=== PATIENT | female | born 1950 | race Caucasian/White ===

== ENCOUNTER 2016-09-21 09:38 | Emergency (ER) | payer BC ==
[2010-12-24 07:50] VITALS: BMI 27.5
[2016-09-21 10:51] LABS: BASOPHILS 0.1 % (0-2); EOSINOPHILS 0.2 % (0-7); HEMATOCRIT 41.1 % (36.0-48.0); HEMOGLOBIN 13.5 g/dL (12-16); IMMATURE GRANULOCYTES 0.7 % (0-5); LYMPHOCYTES 19.6 % (15-50); MCH 30.8 pg (26.0-34.0); MCHC 32.8 g/dL (31.0-37.0); MCV 93.6 fL (80.0-100.0); MEAN PLATELET VOLUME 10.2 fL (7.4-10.4); MONOCYTES 9.2 % (2-11); NEUTROPHILS 70.2 % (40-80); RBC 4.39 10x6/uL (4.00-5.40); RDW 12.1 % (11.5-14.5); WBC 9.4 10x3/uL (4.8-10.8)
[2016-09-21 10:52] LABS: PLATELET COUNT 206 10x3/uL (130-400)
[2016-09-21 11:13] LABS: ALBUMIN 3.4 g/dL (3.4-5.0); ALKALINE PHOSPHATASE 137 U/L (46-116); ALT (SGPT) 25 U/L (10-68); BILIRUBIN - TOTAL 0.25 mg/dL (0.2-1.3); CALCIUM 9.1 mg/dL (8.5-10.1); CARBON DIOXIDE 32.5 mmol/L (21.0-32.0); CHLORIDE - SERUM 95 mmol/L (98-107); CREATININE - SERUM 0.9 mg/dL (0.6-1.3); PROTEIN - SERUM 7.4 g/dL (6.4-8.2); SODIUM 133 mmol/L (136-145); UREA NITROGEN 17 mg/dL (7-18); eGFR NON AFRICAN AMERICAN 67 mL/min (90-120)
[2016-09-21 11:17] LABS: CREATINE KINASE 88 UL (21-215); MAGNESIUM - SERUM 1.9 mg/dL (1.8-2.4)
[2016-09-21 11:18] LABS: CALC OSMOLALITY 267 mosm/kg (275-300); GLUCOSE 106 mg/dL (74-106); TROPONIN-I < 0.017 ng/mL (0.000-0.060)
== END 2016-09-21 13:54 | disposition home or self-care (01) ==
LOC: D.ER 09:38
PROVIDERS: Emergency Medicine
DX: R55 Syncope and collapse (principal); R11.10 Vomiting, unspecified; J01.90 Acute sinusitis, unspecified; I10 Essential (primary) hypertension

== ENCOUNTER → 2016-09-25 07:57 | Outpatient (CLI) | payer BC ==
[2010-12-24 07:50] VITALS: BMI 27.5
== END | disposition home or self-care (01) ==
LOC: D.US 07:57
DX: R11.2 Nausea with vomiting, unspecified (principal)

== ENCOUNTER 2017-04-25 21:42 | Observation (INO) | payer BC ==
[~2017-04-25] VITALS: Ht 167.6 cm; Wt 68.2 kg
--- NOTE | ~2017-04-25 | HEMODYNAMI ---
PATIENT:MEHUL STRINGER MEDICAL RECORD: [id number] : 54 LOCATION[id number] ADMISSION DATE: 04/25/17 Generatedon:04/26/201710:33 Patient name: MEHUL STRINGER Patient #: [id number] SSN: [id number] : 1950 Date of study: 04/26/2017 Page: Of Hemodynamic Procedure Report Patient Data Patient Demographics Procedure consent was obtained First Name: MEHUL Gender: Female Last Name: SIOMARA : 1950 [facility] Initial: C Age: 67 year(s) Patient #: [id number] Race: SSN: [id number] Additional ID: [id number] Contact details Address: [address] [place] [address] State: [place] City: [facility] Zip code: [address] Past Medical History Allergies Allergen Reaction Date Comments Reported Other allergy 04/26/2017 codeine Admission Admission Data Admission Date: 04/25/2017 Admission Time: 23:44 Arrival Date: 04/26/2017 Arrival Time: 23:44 Admit Source: Other Insurance Payor: Private Room #: [id number] health insurance Height (in.): 69 Height (cm.): 175.26 Lab Results Lab Result Date: 04/26/2017 Lab Result Time: 0:00 Biochemistry Name Units Result Min Max BUN mg/dl 10 --(-*--)-- 7 18 Creatinine mg/dl 0.7 --(*---)-- 0.6 1.3 CBC Name Units Result Min Max Hemoglobin g/dl 12.9 -*(----)-- 13.5 17.5 Procedure Procedure Types Cath Procedure Diagnostic Procedure [facility] w/Coronaries FFR/IVUS Intra-Coronary IVUS Initial PCI Procedure Coronary Stent Miscellaneous Procedures Moderate Sedation up to 15 minutes Procedure Description Procedure Date Procedure Date: 04/26/2017 Procedure Start Time: 10:05 Procedure End Time: 10:29 Procedure Staff Name Function Arben You MD Performing Physician Chin Knight RN Nurse Nita Khan RT Monitor Lindsay Thomason RT Scrub Procedure Data Cath Procedure Fluoroscopy Diagnostic fluoroscopy Total fluoroscopy Time: 6.7 time: 6.7 min min Diagnostic fluoroscopy Total fluoroscopy dose: 690 dose: 690 mGy mGy Contrast Material Contrast Material Type Amount (ml) Isovue 300 116 Entry Location Entry Primary Successful Side Size Upsize Upsize Entry Closure Nam ccessful Closure Location (Fr) 1 (Fr) 2 (Fr) Remarks Device Remarks Radial Right 6 Fr Mechanical TR band artery Short Compression Estimated blood loss: 10 ml Diagnostic catheters Device Type Used For End Catheter Placement Diagnostic Terumo 5Fr Procedure [place] 110cm catheter Procedure Complications No complications Procedure Medications Medication Administration Route Dosage Oxygen NC 2 l/min Heparin Flush Bag added to field 2 bags (1000units/500ml NS) 0.9% NaCl I.V. 100 ml/hr Radial Cocktail added to field 1 syringe (Verapomil 2mg/Nitro 400mcg/Heparin 1500units) Fentanyl I.V. 50 mcg Versed I.V. 1 mg Fentanyl I.V. 50 mcg Versed I.V. 1 mg Radial Cocktail I.A. 1 syringe (Verapomil 2mg/Nitro 400mcg/Heparin 1500units) Fentanyl I.V. 50 mcg Versed I.V. 1 mg Lopressor I.V. 5 mg Heparin Bolus I.V. 4000 units Zofran I.V. 4 mg Fentanyl I.V. 50 mcg Versed I.V. 1 mg Hemodynamics Rest HGB: 12.9 (g/dl) Heart Rate: 35 (bpm) Snapshots Pre Cath Intra NCS Post Cath Vital Signs Time Heart Resp SPO2 etCO2 NIBP (mmHg) Rhythm Pain Sedation Rate (ipm) (%) (mmHg) Status Level (bpm) 9:53:02 83 18 98 0 202/110(161) NSR 0 (11) 10(A) , No pain 9:58:21 84 20 95 30.9 205/107(176) NSR 0 (11) 10(A) , No pain 10:02:45 82 18 98 15 195/96(147) NSR 0 (11) 10(A) , No pain 10:07:11 81 17 95 33.1 175/88(145) NSR 0 (11) 10(A) , No pain 10:11:32 106 19 88 37.7 177/111(158) NSR 0 (11) 10(A) , No pain 10:15:52 85 18 95 43.7 195/99(141) NSR 0 (11) 10(A) , No pain 10:20:14 82 19 97 42.9 176/107(142) NSR 0 (11) 9(A) , No pain 10:24:36 84 17 98 42.2 179/99(128) NSR 0 (11) 9(A) , No pain 10:28:56 85 17 99 25.6 166/89(121) NSR 0 (11) 10(A) , No pain 10:32:03 80 18 100 39.2 162/81(125) NSR 0 (11) 10(A) , No pain Medications Time Medication Route Dose Verified Delivered Reason Note s Effectiveness by by 9:55:05 Oxygen NC 2 l/min Arben Neely Per physician Avelino Knight RN 9:55:14 Heparin Flush added 2 bags Arben Neely used for Bag to Avelino Knight RN procedure (1000units/500ml field NS) 9:55:23 0.9% NaCl I.V. 100 Arbenkrala Neely Per physician ml/hr Avelino Knight RN 9:55:31 Radial Cocktail added 1 Arben Neely used for (Verapomil to syringe Avelino Knight RN procedure 2mg/Nitro field 400mcg/Heparin 1500units) 9:58:12 Fentanyl I.V. 50 mcg Arben Neely for sedation Avelino Knight RN 9:58:18 Versed I.V. 1 mg Arben Chin for sedation Avelino Knight RN 10:01:57 Fentanyl I.V. 50 mcg Arbenkarla Martinezy for sedation Avelino Knight RN 10:02:01 Versed I.V. 1 mg Arben Chin for sedation Avelino Knight RN 10:05:58 Fentanyl I.V. 50 mcg Arben Chin for sedation Avelino Knight RN 10:06:02 Versed I.V. 1 mg Arben Martinezy for sedation Avelino Knight RN 10:10:12 Radial Cocktail I.A. 1 Arben Arben for (Verapomil syringe Avelino You MD vasodilation 2mg/Nitro 400mcg/Heparin 1500units) 10:10:18 Fentanyl I.V. 50 mcg Arben Neely for sedation Avelino Knight RN 10:10:22 Versed I.V. 1 mg Arben Neely for sedation Avelino Knight RN 10:11:58 Lopressor I.V. 5 mg Arben Neely Per physician Avelino Knight RN 10:15:31 Heparin Bolus I.V. 4000 Arben Neely for units Avelino Knight RN anticoagulation 10:29:15 Zofran I.V. 4 mg Arben Neely for Nausea Avelino Knight carpenter packing Log Time Note 9:38:37 Informed consent obtained and on chart 9:38:45 Diagnostic Cath Status : Elective 9:39:21 Nita Khan RT(R) sent for patient. Start room use. 9:39:35 Time tracking: Regular hours 9:39:41 Plan of Care:Hemodynamics will remain stable., Cardiac rhythm will remain stable., Comfort level will be maintained., Respiratory function will remain adequate., Patient/ family verbilizes understanding of procedure., Procedure tolerated without complication., Recovers from procedure without complications.. 9:41:31 Admit Source: Other 9:41:35 Arrival Date: 04/26/2017 11:44:00 PM 9:42:12 Insurance Payor : Private health insurance 9:45:55 Patient received from PCU to CCL 2 Alert and oriented. Tansferred to table in Supine position. 9:45:56 Warm blankets applied, and phong hugger turned on for patient comfort. 9:45:56 Correct patient and procedure confirmed by team. 9:45:57 ECG and BP/O2 sat monitors applied to patient. 9:50:51 Vital chart was started 9:50:55 Baseline sample Acquired. 9:50:57 Full Disclosure recording started 9:51:01 H&P Date Dictated: 04/26/2017 New H&P dictated by physician.. 9:51:05 Pre-procedure instructions explained to patient. 9:51:05 Pre-op teaching completed and patient verbalized understanding. 9:51:07 Family in waiting room. 9:51:09 Patient NPO since Midnight. 9:51:18 Patient allergic to Other allergycodeine 9:51:20 Is the patient allergic to Iodine/contrast media? No. 9:51:21 Was the patient premedicated? No 9:51:22 Is patient on blood thinner?Yes 9:51:25 ACC The patient was administered the following blood thiners within the last 24 hours: ACCPlavix 9:51:28 Patient diabetic? No. 9:51:32 Previous problem with sedation/anesthesia? No ? 9:51:33 Snore? Yes 9:51:35 Sleep apnea? No 9:51:37 Deviated septum? No 9:51:37 Opens mouth fully? Yes 9:51:38 Sticks out tongue? Yes 9:51:40 Airway obstruction? No ? 9:51:42 Dentures? No ? 9:51:46 Pre procedure: right dorsailis pedis pulse 2+ Normal; easily identifiable; not easily obliterated 9:51:49 Pre procedure: left dorsailis pedis pulse 2+ Normal; easily identifiable; not easily obliterated 9:51:52 Modified Gavin's test Radial < 7 seconds 9:51:58 IV patent on arrival in left forearm with 0.9% NaCl at [facility]. 9:52:01 Lab results completed and on chart. 9:52:05 Right Radial & Right Groin area was prepped with chlora-prep and draped in sterile fashion 9:52:06 Alarms reviewed by R. N. 9:52:07 Sharps counted by scrub and verified by R.N. 9:55:05 Oxygen 2 l/min NC was administered by Chin Knight RN; Per physician; 9:55:14 Heparin Flush Bag (1000units/500ml NS) 2 bags added to field was administered by Chin Knight RN; used for procedure; 9:55:23 0.9% NaCl 100 ml/hr I.V. was administered by Chin Knight RN; Per physician; 9:55:31 Radial Cocktail (Verapomil 2mg/Nitro 400mcg/Heparin 1500units) 1 syringe added to field was administered by Chin Knight RN; used for procedure; 9:57:53 Physician arrived 9:57:54 --------ALL STOP TIME OUT------ 9:57:54 Final Timeout: patient, procedure, and site verified with staff and physician. All members of the team are in agreement. 9:57:59 Right Radial & Right Groin site verified by team. 9:58:03 Physical assessment completed. ASA score P 2 - A patient with mild systemic disease as per Arben You MD. 9:58:07 Sedation plan: IV Moderate Sedation Medication:Versed, Fentanyl 9:58:12 Fentanyl 50 mcg I.V. was administered by Chin Knight RN; for sedation; 9:58:18 Versed 1 mg I.V. was administered by Chin Knight RN; for sedation; 10:00:31 Use device set Radial Dx 10:00:32 Acist Syringe opened to sterile field. 10:00:32 Medline Cath Pack opened to sterile field. 10:00:33 Bag Decanter opened to sterile field. 10:00:33 Terumo 6Fr Slender Glidesheath opened to sterile field. 10:00:34 [place] 260cm J .035 wire opened to sterile field. 10:00:34 Acist Hand Control opened to sterile field. 10:00:35 Acist Manifold opened to sterile field. 10:00:35 Tegaderm 4 x 4 opened to sterile field. 10:00:36 MBrace Wrist Support opened to sterile field. 10:01:19 Patient Height : 69 inches 10::47 Lab Result : BUN 10 mg/dl 10::47 Lab Result : Hemoglobin 12.9 g/dl 10::47 Lab Result : Creatinine 0.7 mg/dl 10::57 Fentanyl 50 mcg I.V. was administered by Chin Knight RN; for sedation; 10:02:00 Procedure type changed to Cath procedure, Diagnostic procedure, LHC, LHC w/Coronaries, FFR/IVUS, Intra-Coronary IVUS Initial, PCI procedure, Coronary Stent, Miscellaneous Procedures, Moderate Sedation up to 15 minutes 10:02:01 Versed 1 mg I.V. was administered by Chin Knight RN; for sedation; 10:04:42 Zero performed for pressure channel P1 10:05:07 Procedure started. 10:05:54 Local anesthetic to right radial artery with Lidocaine 2% by Arben You MD.INITIAL ACCESS ONLY 10:05:58 Fentanyl 50 mcg I.V. was administered by Chin Knight RN; for sedation; 10:06:02 Versed 1 mg I.V. was administered by Chin Knight RN; for sedation; 10:07:12 A 6 Fr Short sheath was inserted into the Right Radial artery 10:07:36 A Diagnostic Terumo 5Fr [place] 110cm catheter was advanced over the wire and used for Procedure. 10:10:06 Terumo Super Stiff Angled 260cm glide wire opened to sterile field. 10:10:12 Radial Cocktail (Verapomil 2mg/Nitro 400mcg/Heparin 1500units) 1 syringe I.A. was administered by Arben You MD; for vasodilation; 10:10:18 Fentanyl 50 mcg I.V. was administered by Chin Knight RN; for sedation; 10:10:22 Versed 1 mg I.V. was administered by Chin Knight RN; for sedation; 10:10:26 Terumo TORQUE DEVICE PLASTIC .038 opened to sterile field. 10:10:36 LV angiography performed. 10:11:04 LV gram done using KRUGER 10:11:10 EF : 60 % 10:11:15 LCA angiography performed. 10:11:44 RCA angiography performed. 10:11:58 Lopressor 5 mg I.V. was administered by Chin Knight RN; Per physician; 10:12:52 Catheter removed. 10:14:35 Merit BasixCompak Inflation Kit opened to sterile field. 10:14:35 Cordis 6FR XBLAD 3.5 guide catheter opened to sterile field. 10:14:36 Theorem Choice PT Extra Support 182cm wire opened to sterile field. 10:14:36 [place] IVUS Catheter opened to sterile field. 10:14:40 Proceeding to intervention. 10:15:24 6 Fr x.b lad 3.5 guide catheter was inserted over the wire 10:15:31 Heparin Bolus 4000 units I.V. was administered by Chin Knight RN; for anticoagulation; 10:15:35 extra support wire advanced. 10:16:54 Guide Catheter removed. unable to cannulate vessel. 10:17:08 Medtronic Launcher 6Fr AR 1.0 guide catheter opened to sterile field. 10:17:16 6 Fr AR1 guide catheter was inserted over the wire 10:17:45 Guide Catheter removed. unable to cannulate vessel. 10:17:54 Medtronic Launcher 6Fr AR 1.0 SH guide catheter opened to sterile field. 10:18:24 6 Fr AR 1 SH guide catheter was inserted over the wire 10:19:34 extra support wire advanced. 10:19:36 Wire advanced across lesion. 10:22:33 IVUS catheter removed over wire. 10::59 Inflation Number: 1 A Macario RX 3.5 x 22 stent was prepped and advanced across the Prox RCA. The stent was deployed at 21 GUY for 0:10 (min:sec). 10:25:28 Stent catheter was removed intact over wire. 10:25:28 Wire removed. 10:25:29 Guide catheter removed. 10:26:13 Terumo TR Band Standard opened to sterile field. 10:26:37 Sheath removed intact; hemostasis achieved with Mechanical Compression to the Right Radial artery. 10:26:40 Procedure ended.(Physican Out) 10:26:49 Fluoroscopy time 06.70 minutes. 10::56 Fluoroscopy dose: 690 mGy 10::56 Flurop Dose total: 690 10:27:00 Contrast amount:Isovue 300 116ml. 10:27:02 Sharps counted by scrub and verified by R.N. 10:27:04 TR band inflated with 13cc of air. 10:27:06 Insertion/operative site no bleeding no hematoma. 10:27:11 Post Procedure Pulses reassessed and unchanged 10::25 Post-procedure physical assessment completed. ASA score P 2 - A patient with mild systemic disease as per Arben You MD. 10:27:31 Post procedure rhythm: unchanged. 10::34 Estimated blood loss: 10 ml 10:27:35 Post procedure instruction explained to patient.Patient verbalizes understanding. 10::58 Procedure and supply charges have been captured, reviewed, submitted and are correct. 10:28:55 Procedure Complication : No complications 10::58 Vital chart was stopped 10::59 See physician's report for complete and final results. 10:29:15 Zofran 4 mg I.V. was administered by Chin Knight RN; for Nausea; 10::19 Report given to [facility]. 10::23 Patient transfered to [facility] with Bed. 10::25 Procedure ended. :: Full Disclosure recording stopped 10:29:31 End room use (Document Last) Intervention Summary Intervention Notes Time ActionType Lesion and Equipment Action# Pressure Duration Attributes Used 10:22:[address] Place stent Prox RCA [place] RX 1 21 00:10 3.5 x 22 stent Device Usage Item Name Manufacture Quantity Catalog Number Hospital Part Current Mini mal Lot# / Charge Number Stock Stock Serial# Code Acist Acist 1 11035 200566 297125 453596 20 Syringe Medical Systems Inc Medline Cardinal 1 [id number] 181562 07171 211231 5 Cath Pack Health Bag Microtek 1 2002S 705906 27646 612286 5 Decanter Medical Inc. Terumo 6Fr Terumo 1 [id number] 905394 000251 090904 [address] Kel[place] 1 380198 734798 285869 159543 30 260cm J .035 wire Acist Hand Acist 1 89689 911914 785944 196034 5 Control Medical Systems Inc Acist Acist 1 44468 044963 359386 854891 5 Manifold Medical Systems Inc Tegaderm 4 3M 1 1626W 332377 996519 731131 5 x 4 MBrace Advanced 1 140-0250-00 585587 87271 210563 5 Wrist Vascular Support Dynamics Diagnostic Terumo 1 71-4001 425433 130268 880209 5 Terumo 5Fr [place] 110cm catheter Terumo Terumo 1 [id number] 978450 920126 658698 5 Super Stiff Angled 260cm glide wire Terumo [place] 1 TD01 746801 874997 205789 5 TORQUE Scientific DEVICE PLASTIC .038 Merit Merit 1 [id number] 003040 385325 271538 15 TapruwvBand Digital Medical Inflation Kit Cordis 6FR Cardinal 1 [id number] 778165 112422 660388 10 XBLAD 3.5 Health guide catheter [place] Sci [place] 1 [id number] 837929 638997 410589 5 Choice PT Scientific Extra Support 182cm wire [place] 1 [id number] 504641 297064 966116 8 [place] IVUS Catheter Medtronic Medtronic 1 [id number] 511083 93068 235798 1 Launcher 6Fr AR 1.0 guide catheter Medtronic Medtronic 1 [id number] 176674 65100 537426 1 Launcher 6Fr AR 1.0 SH guide catheter [place] RX 3.5 Medtronic 1 [id number] 298366 3933871 721665 5 [id number] x 22 stent Terumo TR Terumo 1 [id number] 052636 046295 548496 40 Band Standard Signature Audit [place] Stage Time Signature Unsigned Intra-Procedure 04/26/2017 Nita Khan 10:33:25 AM RT(R) Signatures Monitor : Nita Khan Signature : RT Date : Time : [place] [id number] [place] [address]
--- NOTE | ~2017-04-25 | HEMODYNAMI ---
PATIENT:MEHUL STRINGER MEDICAL RECORD: [id number] : 54 LOCATION[facility] [address] [id number] ADMISSION DATE: 04/25/17 Generatedon:04/27/20179:17 Patient name: MEHUL STRINGER Patient #: [id number] SSN: [id number] : 1950 Date of study: 04/27/2017 Page: Of Hemodynamic Procedure Report Patient Data Patient Demographics Procedure consent was obtained First Name: MEHUL Gender: Female Last Name: SIOMARA : 1950 [facility] Initial: C Age: 67 year(s) Patient #: [id number] Race: SSN: [id number] Additional ID: [id number] Contact details Address: [address] [place] [address] State: [place] City: [facility] Zip code: [address] Past Medical History Allergies Allergen Reaction Date Comments Reported Other allergy 04/26/2017 codeine Other allergy 04/27/2017 codeine Admission Admission Data Admission Date: 04/25/2017 Admission Time: 23:44 Arrival Date: 04/26/2017 Arrival Time: 23:44 Admit Source: Other Insurance Payor: Private Room #: [id number] health insurance Height (in.): 69 Height (cm.): 175.26 Lab Results Lab Result Date: 04/27/2017 Lab Result Time: 0:00 Biochemistry Name Units Result Min Max BUN mg/dl 10 --(-*--)-- 7 18 Creatinine mg/dl 0.7 --(*---)-- 0.6 1.3 CBC Name Units Result Min Max Hemoglobin g/dl 12.9 -*(----)-- 13.5 17.5 Procedure Procedure Types Cath Procedure Diagnostic Procedure FFR/IVUS Intra-Coronary IVUS Initial Intra-Coronary IVUS Additional PCI Procedure Coronary Stent Coronary Stent Initial x2 Miscellaneous Procedures Moderate Sedation up to 15 minutes Procedure Description Procedure Date Procedure Date: 04/27/2017 Procedure Start Time: 8:56 Procedure End Time: 9:14 Procedure Staff Name Function Arben You MD Performing Physician Nita Khan RT Monitor Lindsay Thomason RT Scrub Chin Knight RN Nurse Andrez Martinez RN Nurse Procedure Data Cath Procedure Fluoroscopy Diagnostic fluoroscopy Total fluoroscopy Time: 4.5 time: 4.5 min min Diagnostic fluoroscopy Total fluoroscopy dose: 495 dose: 495 mGy mGy Contrast Material Contrast Material Type Amount (ml) Isovue 300 97 Entry Location Entry Primary Successful Side Size Upsize Upsize Entry Closure Succes sful Closure Location (Fr) 1 (Fr) 2 (Fr) Remarks Device Remarks Femoral Right 6 Fr Exoseal artery Short Estimated blood loss: 10 ml Procedure Complications No complications Procedure Medications Medication Administration Route Dosage Phenergan 25 mg Zofran I.V. 4 mg Benadryl I.V. 50 mg Versed I.V. 1 mg Fentanyl I.V. 50 mcg Heparin Bolus I.V. 4000 units Versed I.V. 1 mg Fentanyl I.V. 50 mcg Lopressor I.V. 5 mg Oxygen NC 2 l/min Lidocaine 2% added to field 20 Heparin Flush Bag added to field 2 bags (1000units/500ml NS) 0.9% NaCl I.V. 100 ml/hr Hemodynamics Rest HGB: 12.9 (g/dl) Snapshots Pre Cath Intra NCS Post Cath Vital Signs Time Heart Resp SPO2 etCO2 NIBP (mmHg) Rhythm Pain Sedation Rate (ipm) (%) (mmHg) Status Level (bpm) 8:14:19 85 17 96 0 178/100(156) NSR 0 (11) 10(A) , No pain 8:18:43 83 16 98 0 182/99(167) NSR 0 (11) 10(A) , No pain 8:23:09 84 15 95 0 178/87(145) NSR 0 (11) 10(A) , No pain 8:27:34 82 14 97 0 187/91(138) NSR 0 (11) 10(A) , No pain 8:32:00 80 17 96 0 195/96(156) NSR 0 (11) 10(A) , No pain 8:36:26 81 16 97 0 199/98(139) NSR 0 (11) 10(A) , No pain 8:40:57 86 16 97 0 185/104(138) NSR 0 (11) 10(A) , No pain 8:45:23 84 16 99 0 200/100(159) NSR 0 (11) 10(A) , No pain 8:49:53 78 15 98 0 203/93(152) NSR 0 (11) 10(A) , No pain 8:54:26 94 15 100 0 208/107(152) NSR 0 (11) 10(A) , No pain 8:58:48 91 16 97 0 183/88(135) NSR 0 (11) 10(A) , No pain 9:03:08 107 16 99 0 167/94(127) NSR 0 (11) 10(A) , No pain 9:07:28 114 14 100 0 178/105(135) NSR 0 (11) 10(A) , No pain 9:11:52 89 15 100 0 195/102(151) NSR 0 (11) 10(A) , No pain Medications Time Medication Route Dose Verified Delivered Reason Notes Effectiveness by by 8:40:23 Oxygen NC 2 Arben Buffie used for l/min Avelino Martinez RN procedure 8:40:30 Lidocaine 2% added 20ml Arben Buffie for local to vial Avelino Martinez RN anesthetic field 8:40:37 Heparin Flush added 2 Arben Arben used for Bag to bags Avelino You MD procedure (1000units/500ml field NS) 8:40:47 0.9% NaCl I.V. 100 Arben Buffie Per physician ml/hr Avelino Martinez RN 8:47:23 Phenergan IM- lt 25 mg Arben Buffie Per physician gm Avelino Martinez RN 8:49:20 Zofran I.V. 4 mg Arben Buffie Per physician Avelino Martinez RN 8:51:27 Benadryl I.V. 50 mg Arben Buffie used for Avelino Martinez RN procedure 8:55:32 Versed I.V. 1 mg Arben Buffie for sedation Avelino Martinez RN 8:55:37 Fentanyl I.V. 50 Arben Buffie for sedation mcg Avelino Martinez RN 8:57:31 Heparin Bolus I.V. 4000 Arben Buffie for verifie d units Avelino Martinez RN anticoagulation with dr you 9:01:45 Versed I.V. 1 mg Arben Maguire for sedation Avelino Martinez RN 9:01:49 Fentanyl I.V. 50 Arben Maguire for sedation mcg Avelino Martinez RN 9:10:41 Lopressor I.V. 5 mg Arben Maguire Per physician Avelino Martinez technical sales representatives Log Time Note 7:47:52 Informed consent obtained and on chart 7:47:54 Diagnostic Cath Status : Elective 7:48:19 Patient Height : 69 inches 7:49:23 Nita Bill RT(R) sent for patient. Start room use. 7:49:24 Time tracking: Regular hours 7:49:29 Plan of Care:Hemodynamics will remain stable., Cardiac rhythm will remain stable., Comfort level will be maintained., Respiratory function will remain adequate., Patient/ family verbilizes understanding of procedure., Procedure tolerated without complication., Recovers from procedure without complications.. 8:03:55 Patient received from PCU to CCL 2 Alert and oriented. Tansferred to table in Supine position. 8:03:56 Warm blankets applied, and phong hugger turned on for patient comfort. 8:03:56 Correct patient and procedure confirmed by team. 8:03:57 ECG and BP/O2 sat monitors applied to patient. 8:13:07 Vital chart was started 8:13:08 Baseline sample Acquired. 8:13:12 Rhythm: sinus rhythm 8:13:14 Full Disclosure recording started 8:13:18 H&P Date Dictated: 04/27/2017 Within 30 days and on chart., H&P Addendum completed by physician on day of procedure. (MUST COMPLETE FOR ALL OUTPATIENTS). 8:13:19 Pre-procedure instructions explained to patient. 8:13:20 Pre-op teaching completed and patient verbalized understanding. 8:13:21 Family in waiting room. 8:13:23 Patient NPO since Midnight. 8:13:32 Patient allergic to Other allergycodeine 8:13:37 Is the patient allergic to Iodine/contrast media? No. 8:13:38 Was the patient premedicated? No 8:13:39 Is patient on blood thinner?Yes 8:13:41 ACC The patient was administered the following blood thiners within the last 24 hours: ACCPlavix 8:13:44 Patient diabetic? No. 8:13:52 Previous problem with sedation/anesthesia? Yes vomiting 8:13:54 Snore? Yes 8:13:55 Sleep apnea? No 8:13:56 Deviated septum? No 8:13:57 Opens mouth fully? Yes 8:13:58 Sticks out tongue? Yes 8:14:00 Airway obstruction? No ? 8:14:03 Dentures? No ? 8:14:07 Pre procedure: right dorsailis pedis pulse 2+ Normal; easily identifiable; not easily obliterated 8:14:10 Pre procedure: left dorsailis pedis pulse 2+ Normal; easily identifiable; not easily obliterated 8:14:13 Patient pain scale 0/10 ?. 8:16:55 Lab Result : Hemoglobin 12.9 g/dl 8:16:55 Lab Result : Creatinine 0.7 mg/dl 8:16:55 Lab Result : BUN 10 mg/dl 8:20:58 IV started by Chin Knight RN inleft forearm with a 22 gauge IV catheter with 0.9% NaCl at O. 8:21:07 Lab results completed and on chart. 8:21:14 Right groin area was prepped with chlora-prep and draped in sterile fashion 8:21:15 Alarms reviewed by R. N. 8:21:15 Sharps counted by scrub and verified by R.N. 8:21:16 Physician paged 8:21:18 Physician arrived 8:40:23 Oxygen 2 l/min NC was administered by Andrez Martinez RN; used for procedure; 8:40:30 Lidocaine 2% 20ml vial added to field was administered by Andrez Martinez RN; for local anesthetic; 8:40:37 Heparin Flush Bag (1000units/500ml NS) 2 bags added to field was administered by Arben You MD; used for procedure; 8:40:47 0.9% NaCl 100 ml/hr I.V. was administered by Andrez Martinez RN; Per physician; 8:44:28 --------ALL STOP TIME OUT------ 8:44:29 Final Timeout: patient, procedure, and site verified with staff and physician. All members of the team are in agreement. 8:44:31 Right groin site verified by team. 8:44:35 Physical assessment completed. ASA score P 2 - A patient with mild systemic disease as per Arben You MD. 8:45:01 Zero performed for pressure channel P1 8:47:23 Phenergan 25 mg IM- lt gm was administered by Andrez Martinez RN; Per physician; 8:49:20 Zofran 4 mg I.V. was administered by Andrez Martinez RN; Per physician; 8:51:27 Benadryl 50 mg I.V. was administered by Andrez Martinez RN; used for procedure; 8:55:32 Versed 1 mg I.V. was administered by Andrez Martinez RN; for sedation; 8:55:37 Fentanyl 50 mcg I.V. was administered by Andrez Martinez RN; for sedation; 8:56:48 Procedure started. 8:56:55 Local anesthetic to right femoral artery with Lidocaine 2% by Arben You MD.INITIAL ACCESS ONLY 8:57:04 A 6 Fr Short sheath was inserted into the Right Femoral artery 8:57:25 6 Fr XBLAD 3.5 SH guide catheter was inserted over the wire 8:57:31 Heparin Bolus 4000 units I.V. was administered by Andrez Martinez RN; for anticoagulation; verified with dr you 8:57:33 Use device set Femoral PCI 8:57:37 Acist Syringe opened to sterile field. 8:57:38 Acist Hand Control opened to sterile field. 8:57:38 Bag Decanter opened to sterile field. 8:57:39 Medline Cath Pack opened to sterile field. 8:57:39 Terumo 6Fr [place] Sheath opened to sterile field. 8:57:40 St Kelby 260cm J .035 wire opened to sterile field. 8:57:40 Merit BasixCompak Inflation Kit opened to sterile field. 8:57:41 Acist Manifold opened to sterile field. 8:57:41 Tegaderm 4 x 4 opened to sterile field. 8:58:08 [place] Sci Choice PT Extra Support 182cm wire opened to sterile field. 8:58:33 Choice PT extra support wire advanced. 8:59:24 [place] Eagleye IVUS Catheter opened to sterile field. 9:01:45 Versed 1 mg I.V. was administered by Andrez Martinez RN; for sedation; 9:01:49 Fentanyl 50 mcg I.V. was administered by Andrez Martinez RN; for sedation; 9:04:50 Inflation Number: 1 A Macario RX 3.0 x 30 stent was prepped and advanced across the LMCA. The stent was deployed at 15 GUY for 0:10 (min:sec). 9:06:25 Inflation Number: 1 A [place] RX 2.5 x 18 stent was prepped and advanced across the Prox LAD. The stent was deployed at 19 GUY for 0:10 (min:sec). 9:07:17 Cordis 6Fr Exoseal opened to sterile field. 9:10:30 Sheath removed intact; hemostasis achieved with Exoseal to the Right Femoral artery. 9:10:32 Procedure ended.(Physican Out) 9:10:41 Lopressor 5 mg I.V. was administered by Andrez Martinez RN; Per physician; 9:10:44 Fluoroscopy time 04.50 minutes. 9:10:49 Fluoroscopy dose: 495 mGy 9:10:49 Flurop Dose total: 495 9:11:04 Contrast amount:Isovue 300 97ml. 9:11:06 Sharps counted by scrub and verified by R.N. 9:11:13 Insertion/operative site no bleeding no hematoma. 9:11:18 Post right femoral artery:stable 9:11:25 Estimated blood loss: 10 ml 9:11:26 Post procedure instruction explained to patient.Patient verbalizes understanding. 9:12:17 Procedure type changed to Cath procedure, Diagnostic procedure, FFR/IVUS, Intra-Coronary IVUS Initial, Intra-Coronary IVUS Additional, PCI procedure, Coronary Stent, Coronary Stent Initial x2, Miscellaneous Procedures, Moderate Sedation up to 15 minutes 9:12:19 Procedure and supply charges have been captured, reviewed, submitted and are correct. 9:14:12 Procedure Complication : No complications 9:14:15 Vital chart was stopped 9:14:16 See physician's report for complete and final results. 9:14:18 Report given to Med II. 9:14:22 Patient transfered to Med II with Bed. 9:14:24 Procedure ended. 9:14:24 Full Disclosure recording stopped 9:14:31 End room use (Document Last) Intervention Summary Intervention Notes Time ActionType Lesion and Equipment Action# Pressure Duration Attributes Used 9:04:50 Place stent LMCA Macario RX 1 15 00:10 3.0 x 30 stent 9:06:25 Place stent Prox LAD [place] RX 1 19 00:10 2.5 x 18 stent Device Usage Item Name Manufacture Quantity Catalog Number Hospital Part Current Mini mal Lot# / Charge Number Stock Stock Serial# Code Acist Acist 1 74858 989069 416356 282333 20 Syringe Medical Systems Inc Acist Hand Acist 1 44566 899715 353995 017461 5 Control Medical Systems Inc Bag Microtek 1 2002S 389651 38267 005427 5 Decanter Medical Inc. Medline Cardinal 1 [id number] 825352 58296 701076 5 Cath Pack Health Terumo 6Fr Terumo 1 [id number] 335259 971695 592273 [address] Kelby 1 526143 401059 192265 634230 30 260cm J .035 wire Merit Merit 1 [id number] 127093 586099 515179 15 BasixSetJamk Medical Inflation Kit Acist Acist 1 06295 473383 972467 926680 5 Manifold Medical Systems Inc Tegaderm 4 3M 1 1626W 981400 471755 139054 5 x 4 Whitewater Sci Whitewater 1 [id number] 748125 327753 481395 5 Choice PT Scientific Extra Support 182cm wire [place] 1 [id number] 084079 555542 979644 8 [place] Eagleye IVUS Catheter [place] RX 3.0 Medtronic 1 [id number] 058029 8666217 044228 5 [id number] x 30 stent [place] RX 2.5 Medtronic 1 [id number] 001432 9579883 437495 5 [id number] x 18 stent Cordis 6Fr Cardinal 1 EX600 711520 581562 798531 10 [facility] Signature Audit Adel Stage Time Signature Unsigned Intra-Procedure 04/27/2017 Nita Khan 9:17:45 AM RT(R) Signatures Monitor : Nita Khan Signature : RT Date : Time : [facility] [address] [place] [address]
[2017-04-25 22:40] LABS: BASOPHILS 0.2 % (0-2); EOSINOPHILS 0.8 % (0-7); HEMATOCRIT 38.4 % (36.0-48.0); HEMOGLOBIN 12.9 g/dL (12-16); IMMATURE GRANULOCYTES 0.2 % (0-5); LYMPHOCYTES 34.7 % (15-50); MCH 31.5 pg (26.0-34.0); MCHC 33.6 g/dL (31.0-37.0); MCV 93.7 fL (80.0-100.0); MEAN PLATELET VOLUME 9.9 fL (7.4-10.4); MONOCYTES 7.7 % (2-11); NEUTROPHILS 56.4 % (40-80); PLATELET COUNT 214 10x3/uL (130-400); RDW 12.2 % (11.5-14.5); WBC 4.9 10x3/uL (4.8-10.8)
[2017-04-25 23:03] LABS: ALBUMIN 3.1 g/dL (3.4-5.0); ALKALINE PHOSPHATASE 131 U/L (46-116); ALT (SGPT) 23 U/L (10-68); CALC OSMOLALITY 277 mosm/kg (275-300); CALCIUM 8.7 mg/dL (8.5-10.1); CARBON DIOXIDE 27.9 mmol/L (21.0-32.0); CHLORIDE - SERUM 102 mmol/L (98-107); CREATININE - SERUM 0.7 mg/dL (0.6-1.3); GLUCOSE 116 mg/dL (74-106); POTASSIUM - SERUM 3.3 mmol/L (3.5-5.1); PROTEIN - SERUM 6.6 g/dL (6.4-8.2); SODIUM 139 mmol/L (136-145); UREA NITROGEN 10 mg/dL (7-18); eGFR NON AFRICAN AMERICAN 89 mL/min (90-120)
[2017-04-25 23:14] LABS: CHOL - HDL RATIO 3.5 ratio (2.3-4.1); CHOLESTEROL, TOTAL 332 mg/dL (0-200); CKMB 3.1 U/L (0.0-3.6); CREATINE KINASE 270 UL (21-215); HDL CHOLESTEROL 94 mg/dL (32-96); LDL CHOLESTEROL 200 mg/dL (0-100); LDL-HDL RATIO 2.1 ratio (1.5-3.5); TRIGLYCERIDE 190 mg/dL (30-200); TROPONIN-I < 0.017 ng/mL (0.000-0.060)
--- NOTE | 2017-04-26 00:05 | NUR ---
PT ARRIVES TO FLOOR VIA WC FROM ER ACCOMPANIED BY SISTER AND ER NURSE. ASSISTED INTO BED. TELEMETRY PLACED ONTO PT, HR 60'S. PT REPORTS THAT SHE DOES HAVE A LEFT CHEST WALL PACEMAKER. B/P ELEVATED UPON ARRIVAL. CLONIDINE 0.1 MG PO GIVEN REPORTEDLY BY ER NURSE COMPUTER ASSEMBLER ON TO THE FLOOR. WILL RECHECK B/P AFTER PT HAS A CHANCE TO SETTLE IN. ADMISSION ASSESSMENT COMPLETED, HISTORY OBTAINED AND MEDICATIONS RECONCILED AT THE BEDSIDE. CALL LIGHT PLACED WITHIN REACH. PT INSTRUCTED ON BEING NPO UNTIL SEEN BY DR KOENIG IN THE AM. PT VERBALIZED UNDERSTANDING.
[2017-04-26] MEDS ORDERED: COREG25 MG PO (00:07)
[2017-04-26] MEDS ORDERED: AVAPRO300 MG PO (00:07)
[2017-04-26] MEDS ORDERED: CATAPRES0.2 MG PO (00:07)
[2017-04-26] MEDS ORDERED: ATIVAN0.5 MG PO (00:08)
[2017-04-26] MEDS ORDERED: CATAPRES0.1 MG PO (00:08)
[2017-04-26] MEDS ORDERED: TIAZAC/CARDIZE120 MG PO (00:09)
[2017-04-26] MEDS ORDERED: TEGRETOL200 MG PO (00:10)
[2017-04-26 00:56] VITALS: BP 212/91; BMI 24.8
[2017-04-26 01:11] LABS: CREATINE KINASE 260 UL (21-215); TROPONIN-I < 0.017 ng/mL (0.000-0.060)
[2017-04-26 05:03] VITALS: BP 162/86
[2017-04-26 06:20] LABS: CKMB 2.4 U/L (0.0-3.6); CREATINE KINASE 195 UL (21-215); TROPONIN-I < 0.017 ng/mL (0.000-0.060)
--- NOTE | 2017-04-26 07:15 | NUR ---
RESTING QUIETLY NAD NOTED
--- NOTE | 2017-04-26 07:35 | NUR ---
ASSESSMENT COMPLETED. TELEMERTY SHOWS SR 65. PT HAS A SL TO THE RIGHT AC. SHE HAS A PACEMAKER. CARDIAC ENZYMES ARE NEG. AWAITING DOCTOR FOR ORDERS. WILL MONITOR
[2017-04-26 08:14] VITALS: BP 107/70; BP 157/80
[2017-04-26 12:05] VITALS: BP 165/95
[2017-04-26 12:32] VITALS: Ht 167.6 cm; Wt 68.2 kg
--- NOTE | 2017-04-26 12:49 | NUR ---
PT STILL FEELING SLIGHTLY NAUSATED. V/S STABLE. WILL FEED PT WHEN SHE FEEL BETTER. VS STABLE, TR BAND WITH NO BLEEDING OR SWEELING
--- NOTE | 2017-04-26 15:08 | NUR ---
TR BAND REMOVED. NO BLEEDING OR SWELLING, FINGERS WARM. DENIES ANY CHEST PAIN. TELEMERTY SHOWS SR
--- NOTE | 2017-04-26 15:24 | NUR ---
NO BLEEDING AT TR BAND SITE, DRSG DRY AND INTACT. V/S STABLE. TELEMERTY SHOWS SR
[2017-04-26 16:18] VITALS: BP 212/104
--- NOTE | 2017-04-26 18:44 | NUR ---
LYING QUIETLY. CATH SITE TO RIGHT WRIST DRY AND INTACT. NPO AFTER MIDNIGHT. TELEMERTY SHOWS SR
[2017-04-26 20:00] VITALS: BP 212/113
--- NOTE | 2017-04-26 20:04 | NUR ---
PT AWAKE/ALERT AND C/O NAUSEA. MEDICATED WITH ZOFRAN 4MG SIVP TO PIV IN RIGHT A/C. DRESSING TO RIGHT WRIST HEART CATH SITE C/D/I.
[2017-04-27 00:55] VITALS: BP 192/97
[2017-04-27 05:35] VITALS: BP 208/102
--- NOTE | 2017-04-27 07:10 | NUR ---
ASSESSMENT COMPLETED. IV TO LEFT AC OUT. TELEMERTY SHOWS SR. TR BAND TO RIGHT WRIST WITH DRSG DRY AND INTACT. READY FOR CIVIL ENGINEERING TECHNICIAN
[2017-04-27 08:42] VITALS: BP 177/81
--- NOTE | 2017-04-27 09:30 | NUR ---
BACK FROM HYDRODYNAMICS PROFESSOR. IV TO LEFT FA. RIGHT GROIN WITH DRSG DRY AND INTACT. NO SWEELING. TELEMERTY SHOWS SR. PPP. V/S STABLE. WILL MONITOR
[2017-04-27] MEDS ORDERED: PLAVIX75 MG PO (11:28)
[2017-04-27] MEDS ORDERED: ASPIRIN81 MG PO (11:29)
[2017-04-27 12:09] VITALS: BP 197/91
--- NOTE | 2017-04-27 13:50 | NUR ---
CATH SITE NO BLEEDING OR SWELLING NOTED. IV DCD WITH TIP INTACT. INSTRUCTIONS GIVEN TO PT . TO PRIVATE CAR PER WHEEL CHAIR
--- NOTE | 2017-05-11 12:14 | DS ---
PATIENT:MEHUL KEATING :54 MEDICAL RECORD: [id number] DISCHARGE SUMMARY ADMISSION DATE: 04/25/17 DISCHARGE DATE: 04/27/17 DISCHARGE DIAGNOSES: 1. Unstable angina. 2. Coronary artery disease. 3. PTCA and stent of RCA, left main, and LAD this admission. 4. Hyperlipidemia. HOSPITAL COURSE: Ms. Keating presented with anginal symptomatology. Found to have significant disease to the RCA, left main, and LAD. Underwent successful PTCA and stent of all 3 territories. Had an uneventful postop course. She was discharged home with the addition of Plavix to her medical regimen. She will follow up with [facility] in 1 month. TRANSINT:[id number] Voice Confirmation ID: [id number] DOCUMENT ID: [id number] TONI KOENIG MD at 1214 CC: [id number] DICTATION DATE: 04/27/17 0911 SALES AND MARKETING COORDINATOR: 04/27/17 1113 DIS IN 04/27/17 [id number] [place] [address]
--- NOTE | 2017-05-11 12:14 | HP ---
PATIENT: MEHUL KEATING MEDICAL RECORD: [id number] ACCOUNT: [id number] LOCATION:[address] : 54 ADMISSION DATE: 04/25/17 HISTORY AND PHYSICAL EXAMINATION DIAGNOSES: 1. Unstable angina. 2. Coronary artery disease. 3. Previous percutaneous transluminal coronary angioplasty stent. 4. Sick sinus syndrome. 5. Status post pacemaker. 6. Hypertension. HISTORY OF PRESENT ILLNESS: Ms. Keating presents with increasing anginal symptomatology in an unstable fashion. She does have a history of coronary artery disease. Last cardiac stents were 7 years ago. She continues to have episodes of severe chest pain, she is having that as we are speaking to her now. PHYSICAL EXAMINATION: GENERAL APPEARANCE: Well-nourished, well-developed, appears stated age. Level of distress, comfortable. PSYCHIATRIC: Mental status, alert, normal affect. Orientation, oriented to time, place and person. EYES: Lids and conjunctiva, noninjected. No discharge, no pallor. ENT: Lips, teeth, gums, normal dentition. Oropharynx, no cyanosis, no pallor. NECK: Carotid arteries, bilateral normal upstroke, no bruits, no thrills. JUGULAR VEINS: No jugular venous pressure or distention. CERVICAL LYMPH NODES: Nontender, nonenlarged. THYROID: Not enlarged. Nontender. No nodules. LUNGS: Respiratory effort, unlabored. CHEST: Normal curvature. No thoracic deformity. No chest wall tenderness. Percussion, resonant. Auscultation, clear. No wheezes, no rales, no rhonchi. CARDIOVASCULAR: Precordial exam, nondisplaced. No heaves or pericardial thrills. Rate and rhythm, regular. Heart sounds, normal S1, normal S2. No S3, no gallop, no rub. Systolic murmur, not heard. Diastolic murmur, not heard. EXTREMITIES: No cyanosis, no edema. Peripheral pulses, full and equal in all extremities, except as noted. No bruits appreciated. ABDOMEN: Soft, nondistended. Normal aorta. No bruit. Nontender. No masses. Liver, nontender, no hepatomegaly. Spleen, nontender, no splenomegaly. MUSCULOSKELETAL: No joint tenderness. No joint swelling. No erythema. NEUROLOGICAL: Normal gait, normal strength, normal tone. SKIN: Warm and dry. REVIEW OF SYSTEMS: The patient reports easy bruising but reports no swollen glands. The patient reports no fever, no night sweats, no significant weight gain, no significant weight loss. No significant exercise tolerance. The patient reports no dry eyes, no irritation, no vision change. Patient reports no difficulty hearing and no ear pain. Patient reports no frequent nose bleeds or nose and sinus problems. Patient reports on arm pain on exertion. No shortness of breath while lying down. No history of heart murmur. Patient reports no cough, no wheezing or coughing up blood. Patient reports no abdominal pain, no vomiting. Normal appetite. No diarrhea and not vomiting blood. No nausea and no constipation. Patient reports no incontinence. No difficulty urinating. No hematuria. No increased frequency. Patient reports no muscle aches. No weakness, no arthralgias, no back pain. No swelling of the HISTORY AND PHYSICAL [id number] MEHUL KEATING extremities. Patient reports no abnormal mole, no jaundice, no rashes. Reports no loss of consciousness. No weakness and no numbness. No seizures, dizziness, or headaches. The patient reports no depression, no sleep disturbance, feeling safe in a relationship and no alcohol abuse. Patient reports on fatigue. Reports no runny nose or sinus pressure. No itching, no hives, and no frequent sneezing. OVERALL IMPRESSION: Unstable anginal symptomatology, most likely she has recurrent hemodynamically significant coronary artery disease. We will proceed with coronary angiography. Further care depends upon findings of the angiography. TRANSINT:[id number] Voice Confirmation ID: [id number] DOCUMENT ID: [id number] TONI KOENIG MD at 1214 CC: [id number] DICTATION DATE: 04/26/17908 TELEPHONE SOLICITOR SUPERVISOR: 04/26/17 1052 DIS IN 04/27/17 [facility] [address] [place] [address]
--- NOTE | 2017-05-11 12:17 | OP ---
PATIENT NAME: MEHUL STRINGER MEDICAL RECORD: [id number] :54 LOCATION:D[address]M2 [address].2123 ADMISSION DATE:04/25/17 SURGEON: TONI KOENIG MD DATE OF OPERATION: 04/26/2017 PROCEDURES: 1. PTCA stent to RCA. 2. Intravascular ultrasound to RCA. 3. Left heart catheterization. 4. Selective coronary angiography. 5. Left ventriculogram. INDICATION: Angina and coronary artery disease. PROCEDURE IN DETAIL: After informed consent was obtained and after detailed explanation of risks, benefits as well as alternative therapies, the patient elected to proceed with angiogram and angioplasty. The right radial area was prepped and draped in normal sterile fashion. The right radial artery was cannulated via modified Seldinger technique with placement of 6-Divehi sheath. All catheters exchanged through this sheath. FINDINGS: The left ventriculogram was performed in standard 30-degree KRUGER view, reveals excellent cardiac wall motion throughout all segments. Overall ejection fraction in the 60% range. SELECTIVE CORONARY ANGIOGRAPHY: 1. Left main has a definite stenosis. This is a questionable significance better delineated by intravascular ultrasound as it extends into the left anterior descending. Proximal left anterior descending has the same stenosis. 2. Left circumflex shows moderate irregularities, but no flow-limiting stenosis. 3. The right coronary has previously placed stent at the ostium. There is 65% to 70% in-stent restenosis confirmed by intravascular ultrasound. PTCA STENT OF THE RCA: The stent used was a 3.5 x 22 mm Macario. Result was 0% residual stenosis. OVERALL IMPRESSION: Successful percutaneous transluminal coronary angioplasty stent of the right coronary artery going from 65-70% initial stenosis to 0% residual stenosis. PLAN: Left main intravascular ultrasound as well as proximal LAD intravascular ultrasound for evaluation of this disease in the a.m. TRANSINT:[id number] Voice Confirmation ID: [id number] DOCUMENT ID: [id number] TONI KOENIG MD at 1217 CC: [id number] DICTATION DATE: 04/26/17 1029 ELECTRONICS TECHNICIAN: 04/26/17 1211 DIS IN 04/27/17 [place] [address]
--- NOTE | 2017-05-11 12:17 | OP ---
PATIENT NAME: MEHUL STRINGER MEDICAL RECORD: [id number] :54 LOCATION:D.M2 D.2123 ADMISSION DATE:04/25/17 SURGEON: TONI KOENIG MD DATE OF OPERATION: 04/27/2017 DATE OF SERVICE: 04/27/2017 PROCEDURES: 1. PTCA stent left main. 2. PTCA stent LAD. 3. Intravascular ultrasound. 4. Selective coronary angiography. INDICATION: Angina and coronary artery disease. PROCEDURE IN DETAIL: After informed consent was obtained and after a detailed explanation of the risks, benefits as well as alternative therapies, the patient elected to proceed with angiogram and angioplasty. The right femoral area was prepped and draped in normal sterile fashion. The right femoral artery was cannulated via modified Seldinger technique with placement of 6-Cypriot sheath. All catheters exchanged through this sheath. FINDINGS: The left main had 77% stenosis confirmed by intravascular ultrasound. The left anterior descending as well had greater than 80% stenosis confirmed by intravascular ultrasound. The left main was addressed with a 3.0 x 30 mm Macario and the LAD with a 2.5 x 18 mm Astatula. Result was 0% residual stenosis. OVERALL IMPRESSION: Successful percutaneous transluminal coronary angioplasty stent of the left main and LAD, both going from 75% to 80% initial stenosis to 0% residual stenosis. TRANSINT:[id number] Voice Confirmation ID: [id number] DOCUMENT ID: [id number] TONI KOENIG MD at 1217 CC: [id number] DICTATION DATE: 04/27/17 09 ADMINISTRATION DEAN: 04/27/17 1319 DIS IN 04/27/17 [address] [place] [address]
== END 2017-04-27 14:04 | disposition home or self-care (01) ==
LOC: D.ER 21:42 → D.M2 23:44 → OBSVTIME 23:44 → D.M2 23:44
PROVIDERS: Family Medicine; ADMIT Internal Medicine Interventional Cardiology
DX: I25.110 Atherosclerotic heart disease of native coronary artery with unstable angina pectoris (principal); Z95.5 Presence of coronary angioplasty implant and graft; Z95.0 Presence of cardiac pacemaker; I10 Essential (primary) hypertension; E78.5 Hyperlipidemia, unspecified

== ENCOUNTER 2017-05-24 06:55 | Observation (INO) | payer BC ==
[~2017-05-24] VITALS: Ht 167.6 cm; Wt 66.5 kg
--- NOTE | ~2017-05-24 | EC ---
PATIENT:MEHUL STRINGER DATE OF SERVICE: 05/24/17 SEX: F MEDICAL RECORD: [id number] DATE OF : 54 LOCATION:D.M2 D.211 AGE OF PATIENT: 67 ADMISSION DATE: 05/24/17 REFERRING PHYSICIAN: INTERPRETING PHYSICIAN: ARELY LAIRD MD ECHOCARDIOGRAM REPORT ECHO CHARGES 4 ECHO COMPLETE CLINICAL DIAGNOSIS: CHEST PAIN, HX OF CAD/STENT/PACER/HTN ECHOCARDIOGRAPHIC MEASUREMENTS (adult normal given) AC root (d.<3.7cm) 3.5 cm LV Septum d (<1.2 cm> 1.4 cm Valve Excursion 1.7 cm LV Septum (systole) 1.6 cm Left Atria (s.<4.0cm> 3.7 cm LVPW d(<1.2cm) 1.3 cm RV (d.<2.3cm) 3.8 cm LVPW (sytole) 1.7 cm LV diastole(<5.6CM) 4.0 cm MV E-F(>70mm/sec) cm LV systole 2.5 cm LVOT Diameter 1.8 cm MV exc.(>10mm) 1.9 cm Est.ejection fraction (50-75%) % Pericardial Effusion N DOPPLER: LVIT cm/sec A 66.0 cm/sec E 98.0 cm/sec LA cm/sec RVSP 51 mmHg LVOT 115 cm/sec AOP1/2T m/s Asc. Ao 144 cm/sec RVOT 103 cm/sec RA cm/sec PA 105 cm/sec AV Gradient Peak 8.29 mmHg AV Mean 4.36 mmHg AV Area 2.2 cm MV Gradient Peak 8.83 mmHg MV Mean 2.72 mmHg MV Area cm COMMENTS: Optometrist/Practice Owner: Cindi PROCTOR Chain Saw Mechanic: Vera Laird TAPE# PACS DATE OF SERVICE: 05/24/2017 PROCEDURE: Transthoracic echocardiogram. FINDINGS: 1. Left ventricle has mild concentric left ventricular hypertrophy with inflow characteristics that are normal. 2. The ejection fraction is 65% to 70%. 3. The left atrium is normal. 4. The aortic valve is normal. ECHOCARDIOGRAM REPORT [id number] MEHUL STRINGER 5. The mitral valve has mild mitral regurgitation. 6. Tricuspid valve has moderate tricuspid regurgitation with an RVSP that is mildly elevated in the 40-50 mmHg range. 7. The right ventricle is dilated with good function with pacer artifact seen. 8. The right atrium is mildly enlarged. CONCLUSION: The patient has evidence of hypertensive heart disease, history or at least what appears to be a pacer artifact, otherwise normal function. No regional wall motion abnormalities were seen. TRANSINT:[id number] Voice Confirmation ID: [id number] DOCUMENT ID: [id number] 06/01/2017 Edited to correct date of service, dm. ARELY LAIRD MD at 1353 CC: [id number] DICTATION DATE: 05/25/17 1138 NOZZLE AND SLEEVE WORKER: 05/25/17 1215 DIS IN 05/25/17 [id number] [place] [address]
--- NOTE | ~2017-05-24 | HEMODYNAMI ---
PATIENT:MEHUL STRINGER MEDICAL RECORD: [id number] : 54 [id number] ADMISSION DATE: 05/24/17 Generatedon:05/24/201713:43 Patient name: MEHUL STRINGER Patient #: [id number] SSN: [id number] : 1950 Date of study: 05/24/2017 Page: Of Hemodynamic Procedure Report Patient Data Patient Demographics Procedure consent was obtained First Name: MEHUL Gender: Female Last Name: SIOMARA : 1950 [facility] Initial: C Age: 67 year(s) Patient #: [id number] Race: SSN: [id number] Additional ID: [id number] Contact details Address: [address] [place] [address] State: [place] [facility] [place] code: [address] Past Medical History Allergies Allergen Reaction Date Comments Reported Other allergy 04/26/2017 codeine Other allergy 04/27/2017 codeine Other allergy 05/24/2017 codeine Admission Admission Data Admission Date: 05/24/2017 Admission Time: 8:56 Room #: D.2117 Lab Results Lab Result Date: 05/24/2017 Lab Result Time: 0:00 Biochemistry Name Units Result Min Max BUN mg/dl 10 --(-*--)-- 7 18 Creatinine mg/dl 0.7 --(*---)-- 0.6 1.3 CBC Name Units Result Min Max Hemoglobin g/dl 12 *-(----)-- 13.5 17.5 Procedure Procedure Types Cath Procedure Diagnostic Procedure LHC LHC w/Coronaries Miscellaneous Procedures Moderate Sedation up to 45 minutes Peripheral Cath Diagnostic Procedure Cath Peripheral Renal Arteriogram Procedure Description Procedure Date Procedure Date: 05/24/2017 Procedure Start Time: 12:50 Procedure End Time: 13:11 Procedure Staff Name Function Lindsay Thomason RT Monitor Andrez Martinez RN Nurse Gulshan Herrera RT Scrub Ehsan Arita MD Performing Physician Procedure Data Cath Procedure Fluoroscopy Diagnostic fluoroscopy Total fluoroscopy Time: 2.9 time: 2.9 min min Diagnostic fluoroscopy Total fluoroscopy dose: 708 dose: 708 mGy mGy Contrast Material Contrast Material Type Amount (ml) Isovue 300 74 Entry Location Entry Primary Successful Side Size Upsize Upsize Entry Closure Succes sful Closure Location (Fr) 1 (Fr) 2 (Fr) Remarks Device Remarks Femoral Right 5 Fr Exoseal artery Estimated blood loss: 5 ml Diagnostic catheters Device Type Used For End Catheter Placement DIAGNOSTIC JL 3.5 5Fr Left Coronary catheter ([id number]) Angiography DIAGNOSTIC 3DRC 5Fr Right Coronary catheter ([id number]) Angiography DIAGNOSTIC Pigtail 5Fr LV Angiography catheter ([id number]) Procedure Complications No complications Procedure Medications Medication Administration Route Dosage Phenergan 25 mg Oxygen NC 2 l/min Lidocaine 2% added to field 20 Heparin Flush Bag added to field 2 bags (1000units/500ml NS) 0.9% NaCl I.V. 100 ml/hr Versed I.V. 2 mg Fentanyl I.V. 25 mcg Lopressor I.V. 5 mg Hydralizine I.V. 10 mg Lopressor I.V. 5 mg Hemodynamics Rest HGB: 12 (g/dl) Heart Rate: 105 (bpm) Pressure Samples Time Site Value (mmHg) Purpose Heart Use Rate(bpm) 13:03 LV 200/-11,17 EDP 68 13:03 AO 186/83(127) Pullback 74 Gradients Valve Time Site Site 2 Mean SEP/DFP Peak To Heart Use 1 (mmHg) (sec/min) Peak Rate (mmHg) (bpm) Aortic 13:03 LV AO 74 186/83(127) Snapshots Pre Cath Intra NCS Post Cath Vital Signs Time Heart Resp SPO2 etCO2 NIBP (mmHg) Rhythm Pain Sedation Rate (ipm) (%) (mmHg) Status Level (bpm) 12:36:46 66 17 100 17.4 Measuring NSR 0 (11) 10(A) , No pain 12:37:37 65 16 100 23.5 194/96(150) NSR 0 (11) 10(A) , No pain 12:42:30 63 13 100 18.2 168/72(128) NSR 0 (11) 10(A) , No pain 12:47:27 64 19 99 12.9 160/72(122) NSR 0 (11) 10(A) , No pain 12:52:18 66 15 100 26.5 168/82(136) NSR 0 (11) 10(A) , No pain 12:57:13 70 17 100 25 171/82(131) NSR 0 (11) 10(A) , No pain 13:02:10 72 25 100 26.5 159/75(119) NSR 0 (11) 10(A) , No pain 13:07:01 68 17 100 31.8 168/84(134) NSR 0 (11) 10(A) , No pain 13:11:54 68 16 100 25 166/82(143) NSR 0 (11) 10(A) , No pain 13:20:49 68 20 100 27.3 144/62(116) NSR 0 (11) 10(A) , No pain 13:24:44 68 9 100 29.6 146/71(117) NSR 0 (11) 10(A) , No pain Medications Time Medication Route Dose Verified Delivered Reason Notes Effe ctiveness by by 12:32:24 Phenergan IM- lt 25 mg Ehsan Buffie Per GM Juan J wilkinson MD 12:39:22 Oxygen NC 2 Ehsan Buffie used for l/min Juan J Martinez RN procedure 12:39:31 Lidocaine 2% added 20ml Ehsan Ehsan for local to vial Juan J Arita MD anesthetic field 12:39:38 Heparin Flush added 2 Ehsan Ehsan used for Bag to bags Juan J Arita MD procedure (1000units/500ml field SHEPHERD NS) 12:39:52 0.9% NaCl I.V. 100 Ehsan Buffie Per ml/hr Juan J wilkinson MD 12:40:59 Versed I.V. 2 mg Ehsan Buffie for Juan J Martinez RN sedation 12:41:45 Fentanyl I.V. 25 Ehsan Buffie for mcg Juan J Martinez RN sedation 13:03:23 Lopressor I.V. 5 mg Ehsan Buffie Per Juan J wilkinson MD 13:07:09 Hydralizine I.V. 10 mg Ehsan Buffie Per Juan J wilkinson MD 13:21:41 Lopressor I.V. 5 mg Ehsan Buffie Per Juan J wilkinson MD Procedure Log Time Note 12:10:24 Informed consent obtained and on chart 12:11:48 Lindsay Thomason RT(R) sent for patient. Start room use. 12::49 Time tracking: Regular hours 12:11:54 Plan of Care:Hemodynamics will remain stable., Cardiac rhythm will remain stable., Comfort level will be maintained., Respiratory function will remain adequate., Patient/ family verbilizes understanding of procedure., Procedure tolerated without complication., Recovers from procedure without complications.. 12:26:49 Patient received from PCU to CCL 1 Alert and oriented. Tansferred to table in Supine position. 12:26:50 Correct patient and procedure confirmed by team. 12:26:50 Warm blankets applied, and phong hugger turned on for patient comfort. 12:26:51 ECG and BP/O2 sat monitors applied to patient. 12:26:57 H&P Date Dictated: 05/24/2017 Within 30 days and on chart.. 12:26:58 Pre-procedure instructions explained to patient. 12:26:59 Pre-op teaching completed and patient verbalized understanding. 12:27:02 Patient NPO since Midnight. 12:27:04 Family in patients room. 12:27:15 Patient allergic to Other allergycodeine 12:32:24 Phenergan 25 mg IM- lt GM was administered by Andrez Martinez RN; Per physician; 12:34:25 Is the patient allergic to Iodine/contrast media? No. 12:34:27 Was the patient premedicated? No 12:34:28 Is patient on blood thinner?Yes 12:34:32 ACC The patient was administered the following blood thiners within the last 24 hours: ACCPlavix 12:34:34 Patient diabetic? No. 12:34:53 Previous problem with sedation/anesthesia? Yes Nausea 12:35:01 Snore? Yes 12:35:07 Sleep apnea? No 12:35:08 Deviated septum? No 12:35:09 Opens mouth fully? Yes 12:35:10 Sticks out tongue? Yes 12:35:18 Airway obstruction? No ? 12:35:21 Dentures? No ? 12:35:25 Pre procedure: right dorsailis pedis pulse 2+ Normal; easily identifiable; not easily obliterated 12:35:37 Vital chart was started 12:35:39 Pre procedure: left dorsailis pedis pulse 2+ Normal; easily identifiable; not easily obliterated 12:35:43 Patient pain scale 0/10 ?. 12:35:49 IV patent on arrival in left hand with 0.9% NaCl at [facility]. 12:36:22 Lab Result : Hemoglobin 12 g/dl 12:36: Lab Result : Creatinine 0.7 mg/dl 12:36: Lab Result : BUN 10 mg/dl 12:36:26 Lab results completed and on chart. 12:36:29 Alarms reviewed by R. N. 12:36:29 Right groin area was prepped with chlora-prep and draped in sterile fashion 12:36:30 Sharps counted by scrub and verified by R.N. 12:36:32 --------ALL STOP TIME OUT------ 12:36:32 Physician arrived 12:36:33 Final Timeout: patient, procedure, and site verified with staff and physician. All members of the team are in agreement. 12:36:36 Right groin site verified by team. 12:36:39 Physical assessment completed. ASA score P 2 - A patient with mild systemic disease as per Ehsan Arita MD. 12:36:43 Sedation plan: IV Moderate Sedation Medication:Versed, Fentanyl 12:39:08 Use device set Femoral Dx 12:39:10 Bag Decanter (2002S) opened to sterile field. 12:39:10 ACIST Syringe (26434) opened to sterile field. 12:39:11 Medline Cath Pack ([id number]) opened to sterile field. 12:39:12 SHEATH 5FR Meridian (IVL195) opened to sterile field. 12:39:13 DIAGNOSTIC WIRE .035 260cm J wire (460152) opened to sterile field. 12:39:15 ACIST Manifold (75521) opened to sterile field. 12:39:15 ACIST Hand Control (00882) opened to sterile field. 12:39:22 Tegaderm 4 x 4 (1626W) opened to sterile field. 12:39:22 Oxygen 2 l/min NC was administered by Andrez Martinez RN; used for procedure; 12:39:25 MICROPUNCTURE 4FR Cook (M47279) opened to sterile field. 12:39:31 Lidocaine 2% 20ml vial added to field was administered by Ehsan Arita MD; for local anesthetic; 12:39:38 Heparin Flush Bag (1000units/500ml NS) 2 bags added to field was administered by Ehsan Arita MD; used for procedure; 12:39:52 0.9% NaCl 100 ml/hr I.V. was administered by Andrez Martinez RN; Per physician; 12:40:59 Versed 2 mg I.V. was administered by Andrez Martinez RN; for sedation; 12:41:45 Fentanyl 25 mcg I.V. was administered by Andrez Martinez RN; for sedation; 12:50:47 Full Disclosure recording started 12:50:47 Procedure started. 12:50:51 Local anesthetic to right femoral artery with Lidocaine 2% by Ehsan Arita MD.INITIAL ACCESS ONLY 12:51:16 Access obtained with 4Fr micropunture. 12:51:20 Zero performed for pressure channel P1 12:51:28 Baseline sample Acquired. 12:51:57 A 5 Fr sheath was inserted into the Right Femoral artery 12:52:05 Zero performed for pressure channel P1 12:52:57 A DIAGNOSTIC JL 3.5 5Fr catheter ([id number]) was advanced over the wire and used for Left Coronary Angiography. 12:54:14 LCA angiography performed. 12:54:17 Injector settings: Ml/sec: 3, Volume: 6, 12:56:32 Catheter removed. 12:57:26 A DIAGNOSTIC 3DRC 5Fr catheter ([id number]) was advanced over the wire and used for Right Coronary Angiography. 12:59:29 RCA angiography performed. 12:59:34 Injector settings: Ml/sec: 3, Volume: 6, 13:01:03 Catheter removed. 13:01:10 A DIAGNOSTIC Pigtail 5Fr catheter ([id number]) was advanced over the wire and used for LV Angiography. 13:03:13 LV hemodynamics recorded. 13:03:15 LV gram done using KRUGER 13:03:19 Injector settings: Ml/sec: 12, Volume: 8, 13:03:23 Lopressor 5 mg I.V. was administered by Andrez Martinez RN; Per physician; 13:04:38 Bilateral renal angiography performed. 13:04:56 Catheter removed. 13:06:45 EXOSEAL 5Fr (EX500) opened to sterile field. 13:07:09 Hydralizine 10 mg I.V. was administered by Andrez Martinez RN; Per physician; 13:08:21 Sheath removed intact; hemostasis achieved with Exoseal to the Right Femoral artery. 13:09:38 Procedure ended.(Physican Out) 13:09:56 Fluoroscopy time 02.90 minutes. 13:10:01 Fluoroscopy dose: 708 mGy 13:10:01 Flurop Dose total: 708 13:10:08 Contrast amount:Isovue 300 74ml. 13:10:14 Sharps counted by scrub and verified by R.N. 13:10:17 Insertion/operative site no bleeding no hematoma. 13:10:21 Post-op/insertion site Right Femoral artery dressed using a 4 x 4 and Tegaderm. 13:10:24 Post right femoral artery:stable 13:10:25 Post Procedure Pulses reassessed and unchanged 13:10:28 Post procedure rhythm: unchanged. 13:10:31 Estimated blood loss: 5 ml 13:10:35 Post procedure instruction explained to patient.Patient verbalizes understanding. 13:10:48 Patient needs reinforcement of post procedure teaching. 13:11:24 Procedure type changed to Cath procedure, Diagnostic procedure, LHC, LHC w/Coronaries, Miscellaneous Procedures, Moderate Sedation up to 45 minutes, Peripheral Cath Diagnostic Procedure, Cath Peripheral, Renal Arteriogram 13:11:25 Procedure and supply charges have been captured, reviewed, submitted and are correct. 13:11:30 Procedure Complication : No complications 13:11:32 Vital chart was stopped 13:11:33 See physician's report for complete and final results. 13:11:36 Report given to [facility]. 13:11:39 Patient transfered to [facility] with Stretcher. 13:11:42 Full Disclosure recording stopped 13:11:42 Procedure ended. 13:11:47 End room use (Document Last) 13:21:41 Lopressor 5 mg I.V. was administered by Andrez Martinez RN; Per physician; Device Usage Item Name Manufacture Quantity Catalog Hospital Part Current Minimal Lot# / Number Charge Number Stock Stock Serial# Code ACIST Syringe Acist 1 28291 [id number] 384009 036676 20 (14465) Medical [employer] Bag Decanter Microtek 1 [id number] 79126 465408 5 () Medical Inc. Medline Cath Cardinal 1 [id number] 967105 08298 466872 5 DKT Technology ([id number]) SHEATH 5FR Terumo 1 [id number] 025445 913613 926881 40 Meridian (PDT167) DIAGNOSTIC [facility] [place] 1 646542 702750 307720 432714 30 WIRE .035 260cm J wire (908361) ACIST Hand Acist 1 04252 728790 597509 899821 5 Control Medical (98143) Systems Inc ACIST Acist 1 53414 098619 793849 913754 5 Manifold Medical (89743) Systems Inc Tegaderm 4 x 3M 1 1626W 623134 842415 526604 5 4 (1626W) MICROPUNCTURE [employer] Medical 1 [id number] 221994 039230 259788 5 4FR Cook (N36777) DIAGNOSTIC JL Cardinal 1 [id number] 967822 205705 434757 5 3.5 5Fr Health catheter (869563Z) DIAGNOSTIC Cardinal 1 [id number] 085298 888748 695892 9 3DRC 5Fr Health catheter (161806S) DIAGNOSTIC Cardinal 1 [id number] 209455 705392 266843 5 Pigtail 5Fr Health catheter (445903A) EXOSEAL 5Fr Cardinal 1 EX500 536313 171502 911698 10 (EX500) Health Signature Audit [place] Stage Time Signature Unsigned Intra-Procedure 05/24/2017 Lindsay Thomason RT(R) 1:15:14 PM RT(R) 05/24/2017 1:18:23 PM Intra-Procedure 05/24/2017 Lindsay Thomason 1:43:51 PM RT(R) Signatures Monitor : Lindsay Thomason RT Signature : Date : Time : [address] [place] [address]
[~2017-05-24 06:55] MED LIST: ASPIRIN81 MG PO; ATIVAN0.5 MG PO; AVAPRO300 MG PO; CATAPRES0.1 MG PO; CATAPRES0.2 MG PO; COREG25 MG PO; PLAVIX75 MG PO; TEGRETOL200 MG PO; TIAZAC/CARDIZE120 MG PO
[2017-05-24 07:28] LABS: BASOPHILS 0.3 % (0-2); EOSINOPHILS 0.5 % (0-7); HEMATOCRIT 34.8 % (36.0-48.0); IMMATURE GRANULOCYTES 0.3 % (0-5); LYMPHOCYTES 42.7 % (15-50); MCH 31.7 pg (26.0-34.0); MCHC 34.5 g/dL (31.0-37.0); MCV 91.8 fL (80.0-100.0); MEAN PLATELET VOLUME 9.6 fL (7.4-10.4); MONOCYTES 13.2 % (2-11); PLATELET COUNT 225 10x3/uL (130-400); RBC 3.79 10x6/uL (4.00-5.40); RDW 12.2 % (11.5-14.5); WBC 3.7 10x3/uL (4.8-10.8)
[2017-05-24 07:40] LABS: ALBUMIN 3.6 g/dL (3.4-5.0); ALKALINE PHOSPHATASE 109 U/L (46-116); ALT (SGPT) 21 U/L (10-68); BILIRUBIN - TOTAL 0.25 mg/dL (0.2-1.3); CALC OSMOLALITY 267 mosm/kg (275-300); CALCIUM 8.7 mg/dL (8.5-10.1); CARBON DIOXIDE 27.5 mmol/L (21.0-32.0); CHLORIDE - SERUM 98 mmol/L (98-107); CREATININE - SERUM 0.7 mg/dL (0.6-1.3); GLUCOSE 116 mg/dL (74-106); PROTEIN - SERUM 6.9 g/dL (6.4-8.2); SODIUM 134 mmol/L (136-145); UREA NITROGEN 10 mg/dL (7-18); eGFR NON AFRICAN AMERICAN 89 mL/min (90-120)
[2017-05-24 07:52] LABS: CHOLESTEROL, TOTAL 320 mg/dL (0-200); CKMB 2.2 U/L (0.0-3.6); CREATINE KINASE 176 UL (21-215); HDL CHOLESTEROL 108 mg/dL (32-96); LDL CHOLESTEROL 194 mg/dL (0-100); LDL-HDL RATIO 1.8 ratio (1.5-3.5); PRO BNP 333 pg/mL (0-125); TRIGLYCERIDE 91 mg/dL (30-200); TROPONIN-I < 0.017 ng/mL (0.000-0.060)
[2017-05-24] MEDS ORDERED: CARDIZEM CD360 MG PO (09:36)
[2017-05-24] MEDS ORDERED: FISH OIL 1,2001 CAP PO (09:42)
[2017-05-24 09:47] VITALS: BP 170/74; Ht 167.6 cm; Wt 66.5 kg
[2017-05-24 11:15] VITALS: BP 176/82
[2017-05-24 15:45] VITALS: BP 147/76
[2017-05-24 20:00] VITALS: BP 112/54
[2017-05-24 20:07] LABS: CREATINE KINASE 126 UL (21-215)
[2017-05-24 20:08] LABS: TROPONIN-I < 0.017 ng/mL (0.000-0.060)
[2017-05-25 02:01] LABS: CKMB 0.9 U/L (0.0-3.6); CREATINE KINASE 86 UL (21-215); TROPONIN-I < 0.017 ng/mL (0.000-0.060)
[2017-05-25 02:30] VITALS: BP 110/48
[2017-05-25 04:24] LABS: BASOPHILS 0 % (0-2); EOSINOPHILS 0.2 % (0-7); HEMATOCRIT 37.5 % (36.0-48.0); HEMOGLOBIN 12.5 g/dL (12-16); IMMATURE GRANULOCYTES 0.2 % (0-5); LYMPHOCYTES 32.1 % (15-50); MCHC 33.3 g/dL (31.0-37.0); MCV 93.1 fL (80.0-100.0); MEAN PLATELET VOLUME 9.6 fL (7.4-10.4); MONOCYTES 12.6 % (2-11); NEUTROPHILS 54.9 % (40-80); PLATELET COUNT 210 10x3/uL (130-400); RBC 4.03 10x6/uL (4.00-5.40); RDW 12.6 % (11.5-14.5)
[2017-05-25 04:32] LABS: WBC 5.3 10x3/uL (4.8-10.8)
[2017-05-25 04:53] LABS: ALBUMIN 3.2 g/dL (3.4-5.0); ANION GAP 10.2 mmol/L (8-16); BILIRUBIN - TOTAL 0.23 mg/dL (0.2-1.3); CALCIUM 8.7 mg/dL (8.5-10.1); CREATININE - SERUM 1.2 mg/dL (0.6-1.3); POTASSIUM - SERUM 4.2 mmol/L (3.5-5.1); PROTEIN - SERUM 6.4 g/dL (6.4-8.2)
[2017-05-25 05:52] VITALS: BP 128/54
[2017-05-25 07:55] VITALS: BP 133/56
[2017-05-25] MEDS ORDERED: METOPROLOL TART50 MG PO (11:29)
[2017-05-25 11:52] VITALS: BP 120/53
== END 2017-05-25 13:55 | disposition home or self-care (01) ==
LOC: D.ER 06:55 → D.M2 08:56 → OBSVTIME 08:56 → D.M2 08:56
PROVIDERS: Family Medicine; Internal Medicine Cardiovascular Disease
DX: I25.110 Atherosclerotic heart disease of native coronary artery with unstable angina pectoris (principal); Z95.5 Presence of coronary angioplasty implant and graft; I16.0 Hypertensive urgency; I11.0 Hypertensive heart disease with heart failure; I50.30 Unspecified diastolic (congestive) heart failure; F41.9 Anxiety disorder, unspecified; F31.9 Bipolar disorder, unspecified; E78.00 Pure hypercholesterolemia, unspecified

== ENCOUNTER 2017-05-26 16:10 | Inpatient (IN) | payer BC ==
[~2017-05-26] VITALS: Ht 167.6 cm; Wt 67.0 kg
[2017-05-26] VITALS (17 sets, daily range): BP systolic 121–151; BP diastolic 39–67; BMI 23.9
--- NOTE | ~2017-05-26 | HP ---
PATIENT: MEHUL STRINGER MEDICAL RECORD: [id number] ACCOUNT: [id number] LOCATION:[facility] Julio CesarCV03 : 54 ADMISSION DATE: 05/26/17 HISTORY AND PHYSICAL EXAMINATION HISTORY OF PRESENT ILLNESS: A 67-year-old female who has had recurrent ER presentations for uncontrolled hypertension. She had 2 recent heart stents, has history of bipolar disorder, brain aneurysm with status post clip for 2 years, remains asymptomatic from this, has had recurrent chest pain. PAST SURGICAL HISTORY: Recent stent placement, ID, hysterectomy, pacemaker left anterior chest wall. CURRENT MEDICATIONS: Carvedilol 25 mg b.i.d., Tegretol 200 mg b.i.d., Plavix 75 mg daily, Ativan 1 mg p.o. at bedtime, aspirin 81 mg daily, clonidine 0.1 mg p.o. p.r.n., Lopressor 50 mg b.i.d., Avapro 300 mg daily, and fish oil daily. REVIEW OF SYSTEMS: HEENT: Denies present cephalgia, visual changes, tinnitus, epistaxis or dysphagia. CARDIOVASCULAR: Chest pain on presentation has resolved with nifedipine drip with blood pressure control. PULMONARY: Denies hemoptysis, denies night sweats. GASTROINTESTINAL: Denies hematemesis, hematochezia or melena. GENITOURINARY: Denies dysuria. MUSCULOSKELETAL: No acute changes. ENDOCRINE: Denies polyuria, polydipsia, or polyphagia. PHYSICAL EXAMINATION: VITAL SIGNS: Temperature 98.9, blood pressure on admission 223/109, presently 139/84, heart rate 84, respirations 17, O2 sats 100%. GENERAL: Alert and oriented, no present distress doing well on nifedipine drip. HEENT: Normocephalic, atraumatic. Eyes: Pupils are equally round and reactive to light and accommodation. Extraocular muscles intact. Conjunctiva was not injected. Ears: Canals patent, TMs are intact. Nose: Nares patent without drainage. Throat: No erythema, no exudates. NECK: Supple. No lymphadenopathy, no JVD. HEART: Regular rate and rhythm. No S3, S4, no rub. LUNGS: Clear to auscultation bilaterally. Breathing is nonlabored. ABDOMEN: Soft, nontender. Normal bowel sounds. EXTREMITIES: Present times 4, no edema. NEUROLOGIC: Intact. SKIN: Warm and dry. No rash. LABORATORY DATA: EKG shows sinus rhythm, rate of 76. No significant ST changes. CBC no significant abnormalities. Chemistry is essentially normal. ASSESSMENT AND PLAN: Hypertensive urgency, demand ischemia, and coronary artery disease. The patient is admitted to the ICU. Continue nifedipine drip, consult cardiology. Supportive care. TRANSINT:[id number] Voice Confirmation ID: [id number] DOCUMENT ID: [id number] HISTORY AND PHYSICAL [id number] MEHUL STRINGER, MARK KIMBROUGH at 0739 CC: [id number] DICTATION DATE: 05/26/171906 SWITCHBOARD AND CONTROL ROOM OPERATOR: 05/26/171950 ADM IN [facility] [address] [place] [address]
[~2017-05-26 16:10] MED LIST changes: +CARDIZEM CD360 MG PO; +FISH OIL 1,2001 CAP PO; +METOPROLOL TART50 MG PO
[2017-05-26 17:12] LABS: BASOPHILS 0.1 % (0-2); EOSINOPHILS 0.7 % (0-7); HEMATOCRIT 38.8 % (36.0-48.0); HEMOGLOBIN 13.2 g/dL (12-16); IMMATURE GRANULOCYTES 0.3 % (0-5); LYMPHOCYTES 24.8 % (15-50); MCH 31.4 pg (26.0-34.0); MCV 92.2 fL (80.0-100.0); MEAN PLATELET VOLUME 9.7 fL (7.4-10.4); MONOCYTES 11.3 % (2-11); NEUTROPHILS 62.8 % (40-80); PLATELET COUNT 230 10x3/uL (130-400); RBC 4.21 10x6/uL (4.00-5.40); RDW 12.2 % (11.5-14.5)
[2017-05-26 17:24] LABS: WBC 7.2 10x3/uL (4.8-10.8)
[2017-05-26 17:33] LABS: ALBUMIN 3.5 g/dL (3.4-5.0); ALKALINE PHOSPHATASE 118 U/L (46-116); ALT (SGPT) 20 U/L (10-68); BILIRUBIN - TOTAL 0.21 mg/dL (0.2-1.3); CALC OSMOLALITY 266 mosm/kg (275-300); CARBON DIOXIDE 24.7 mmol/L (21.0-32.0); CHLORIDE - SERUM 100 mmol/L (98-107); GLUCOSE 117 mg/dL (74-106); PROTEIN - SERUM 7.1 g/dL (6.4-8.2); SODIUM 133 mmol/L (136-145); UREA NITROGEN 12 mg/dL (7-18); eGFR NON AFRICAN AMERICAN 89 mL/min (90-120)
[2017-05-26 17:39] LABS: CREATININE - SERUM 0.7 mg/dL (0.6-1.3)
[2017-05-27] VITALS (21 sets, daily range): BP systolic 97–141; BP diastolic 46–77; Ht 167.6 cm; Wt 67.0 kg
[2017-05-28] VITALS (19 sets, daily range): BP systolic 91–208; BP diastolic 42–95
[2017-05-28 03:47] LABS: CALC OSMOLALITY 266 mosm/kg (275-300); CALCIUM 9.4 mg/dL (8.5-10.1); CARBON DIOXIDE 31.7 mmol/L (21.0-32.0); CHLORIDE - SERUM 98 mmol/L (98-107); CREATININE - SERUM 0.7 mg/dL (0.6-1.3); GLUCOSE 105 mg/dL (74-106); POTASSIUM - SERUM 3.9 mmol/L (3.5-5.1); SODIUM 133 mmol/L (136-145); UREA NITROGEN 15 mg/dL (7-18); eGFR NON AFRICAN AMERICAN 89 mL/min (90-120)
[2017-05-29] VITALS (10 sets, daily range): BP systolic 94–143; BP diastolic 47–71
[2017-05-29 13:38] LABS: APPEARANCE HAZY (CLEAR); BILIRUBIN NEGATIVE (NEGATIVE); COLOR DK YELLOW (YELLOW); GLUCOSE NEGATIVE (NEGATIVE); KETONE SMALL mg/dL (NEGATIVE); NITRITE NEGATIVE (NEGATIVE); PROTEIN TRACE mg/dL (NEGATIVE); SPECIFIC GRAVITY 1.025 (1.005-1.020); UROBILINOGEN NORMAL (NORMAL)
[2017-05-29 13:40] LABS: BACTERIA MODERATE /hpf (NONE SEEN); EPITHELIAL CELLS 0-5 /hpf (0-5); GRANULAR CAST 0-5 /lpf (NONE SEEN); HYALINE CAST 0-5 /lpf (NONE SEEN); MUCUS >1+ /lpf (NONE SEEN); RED CELLS - URINE 0-5 /hpf (0-5); WHITE CELLS - URINE 0-5 /hpf (0-5)
[2017-05-30 03:00] VITALS: BP 144/45
[2017-05-30 06:11] LABS: BASOPHILS 0.2 % (0-2); EOSINOPHILS 1.1 % (0-7); HEMATOCRIT 41.7 % (36.0-48.0); HEMOGLOBIN 14.3 g/dL (12-16); IMMATURE GRANULOCYTES 0.2 % (0-5); LYMPHOCYTES 43.1 % (15-50); MCH 31.3 pg (26.0-34.0); MCHC 34.3 g/dL (31.0-37.0); MCV 91.2 fL (80.0-100.0); MEAN PLATELET VOLUME 9.7 fL (7.4-10.4); MONOCYTES 10.4 % (2-11); PLATELET COUNT 257 10x3/uL (130-400); RBC 4.57 10x6/uL (4.00-5.40); RDW 12.2 % (11.5-14.5); WBC 4.5 10x3/uL (4.8-10.8)
[2017-05-30 06:36] LABS: ALBUMIN 3.6 g/dL (3.4-5.0); ANION GAP 11.9 mmol/L (8-16); BILIRUBIN - TOTAL 0.41 mg/dL (0.2-1.3); CALCIUM 9.1 mg/dL (8.5-10.1); POTASSIUM - SERUM 3.9 mmol/L (3.5-5.1); PROTEIN - SERUM 7.5 g/dL (6.4-8.2)
[2017-05-30 07:00] VITALS: BP 104/68
[2017-05-30 10:00] VITALS: BP 114/68
[2017-05-30] MEDS ORDERED: CATAPRES0.2 MG PO (11:48)
[2017-05-30] MEDS ORDERED: CIPRO250 MG PO (11:49)
[2017-05-30 12:03] VITALS: BP 167/68
== END 2017-05-30 13:27 | disposition home or self-care (01) | DRG 305 ==
LOC: D.ER 16:10 → D.CVICU 18:25 → D.M2 05-27 20:00 → D.CVICU 05-27 20:02
PROVIDERS: Emergency Medicine; Family Medicine
DX: I16.0 Hypertensive urgency (principal); I24.8 Other forms of acute ischemic heart disease; N39.0 Urinary tract infection, site not specified; I50.30 Unspecified diastolic (congestive) heart failure; Z95.5 Presence of coronary angioplasty implant and graft; Z95.0 Presence of cardiac pacemaker; I70.1 Atherosclerosis of renal artery; F41.9 Anxiety disorder, unspecified; I25.10 Atherosclerotic heart disease of native coronary artery without angina pectoris

== ENCOUNTER 2017-05-30 20:55 | Emergency (ER) | payer BC ==
[2017-05-27 10:30] VITALS: BMI 23.8
[~2017-05-30 20:55] MED LIST changes: +CIPRO250 MG PO
== END 2017-05-30 22:00 | disposition home or self-care (01) ==
LOC: D.ER 20:55
DX: I10 Essential (primary) hypertension (principal)

== ENCOUNTER 2017-07-19 12:17 | Observation (INO) | payer BC, MEDICARE ==
[~2017-07-19] VITALS: Ht 167.6 cm; Wt 63.5 kg
--- NOTE | ~2017-07-19 | HP ---
PATIENT: MEHUL KEATING MEDICAL RECORD: [id number] ACCOUNT: [id number] LOCATION:[facility] D.2117 : 54 ADMISSION DATE: 07/19/17 HISTORY AND PHYSICAL EXAMINATION ADMITTING DIAGNOSES: 1. Chest pain. 2. Coronary artery disease. 3. Previous percutaneous transluminal coronary angioplasty stent. 4. Doz-ej-hfuxvsn hypertension. 5. Hyperlipidemia. HISTORY OF PRESENT ILLNESS: Ms. Keating presents with chest pain. She has a normal EKG. Last cardiac catheterization in April revealed wide patency of her stents, last stenting was undertaken in March. She has been working with Dr. Denise to control her blood pressure. Her systolic blood pressure has been in the 180s today. PHYSICAL EXAMINATION: GENERAL APPEARANCE: Well-nourished, well-developed, appears stated age. Level of distress, comfortable. PSYCHIATRIC: Mental status, alert, normal affect. Orientation, oriented to time, place and person. EYES: Lids and conjunctiva, noninjected. No discharge, no pallor. ENT: Lips, teeth, gums, normal dentition. Oropharynx, no cyanosis, no pallor. NECK: Carotid arteries, bilateral normal upstroke, no bruits, no thrills. JUGULAR VEINS: No jugular venous pressure or distention. CERVICAL LYMPH NODES: Nontender, nonenlarged. THYROID: Not enlarged. Nontender. No nodules. LUNGS: Respiratory effort, unlabored. CHEST: Normal curvature. No thoracic deformity. No chest wall tenderness. Percussion, resonant. Auscultation, clear. No wheezes, no rales, no rhonchi. CARDIOVASCULAR: Precordial exam, nondisplaced. No heaves or pericardial thrills. Rate and rhythm, regular. Heart sounds, normal S1, normal S2. No S3, no gallop, no rub. Systolic murmur, not heard. Diastolic murmur, not heard. EXTREMITIES: No cyanosis, no edema. Peripheral pulses, full and equal in all extremities, except as noted. No bruits appreciated. ABDOMEN: Soft, nondistended. Normal aorta. No bruit. Nontender. No masses. Liver, nontender, no hepatomegaly. Spleen, nontender, no splenomegaly. MUSCULOSKELETAL: No joint tenderness. No joint swelling. No erythema. NEUROLOGICAL: Normal gait, normal strength, normal tone. SKIN: Warm and dry. REVIEW OF SYSTEMS: The patient reports easy bruising but reports no swollen glands. The patient reports no fever, no night sweats, no significant weight gain, no significant weight loss. No significant exercise tolerance. The patient reports no dry eyes, no irritation, no vision change. Patient reports no difficulty hearing and no ear pain. Patient reports no frequent nose bleeds or nose and sinus problems. Patient reports on arm pain on exertion. No shortness of breath while lying down. No history of heart murmur. Patient reports no cough, no wheezing or coughing up blood. Patient reports no abdominal pain, no vomiting. Normal appetite. No diarrhea and not vomiting blood. No nausea and no constipation. Patient reports no incontinence. No difficulty urinating. No hematuria. No increased frequency. Patient reports no muscle aches. No weakness, no arthralgias, no back pain. No swelling of the HISTORY AND PHYSICAL [id number] MEHUL KEATING extremities. Patient reports no abnormal mole, no jaundice, no rashes. Reports no loss of consciousness. No weakness and no numbness. No seizures, dizziness, or headaches. The patient reports no depression, no sleep disturbance, feeling safe in a relationship and no alcohol abuse. Patient reports on fatigue. Reports no runny nose or sinus pressure. No itching, no hives, and no frequent sneezing. OVERALL IMPRESSION: Chest pain, most likely related to blood pressure. At this time, it is low likelihood she has recurrent hemodynamically significant coronary artery disease, no EKG changes, normal troponin. We will try clonidine TTS 3 patch in addition to what she is currently on and will see if that controls her blood pressure. TRANSINT:[id number] Voice Confirmation ID: [id number] DOCUMENT ID: [id number] TONI KOENIG MD at 1148 CC: [id number] DICTATION DATE: 07/19/17 1657 HUMAN PROJECTILE: 07/19/17 1724 DIS IN 07/20/17 [place] [id number] [place] [id number]
--- NOTE | ~2017-07-19 | DS ---
PATIENT:MEHUL KEATING :54 MEDICAL RECORD: [id number] DISCHARGE SUMMARY ADMISSION DATE: 07/19/17 DISCHARGE DATE: 07/20/17 DISCHARGE DIAGNOSES: 1. Hypertensive crisis. 2. Hypertension. 3. Coronary artery disease. 4. Angina. HOSPITAL COURSE: Ms. Keating presents with chest pain and uncontrolled blood pressure with systolic readings in the 200 range here. Oral p.r.n. clonidine was discontinued and she was placed on the clonidine patch, her systolic blood pressures came down to the 140-150 range. She had no further episodes of chest pain. Troponin was normal. No EKG changes. Discharged home with replacing her oral clonidine with TTS-3 patch. We will follow up with [facility] in 1 month. TRANSINT:[id number] Voice Confirmation ID: [id number] DOCUMENT ID: [id number] TONI KOENIG MD at 1148 CC: [id number] DICTATION DATE: 07/20/17 1001 HYDROELECTRIC PLANT OPERATOR: 07/20/17 1106 DIS IN 07/20/17 [place] [address] [place] [address]
[2017-07-19 13:23] LABS: ALBUMIN 3.8 g/dL (3.4-5.0); ALKALINE PHOSPHATASE 118 U/L (46-116); ALT (SGPT) 23 U/L (10-68); BILIRUBIN - TOTAL 0.26 mg/dL (0.2-1.3); CALC OSMOLALITY 255 mosm/kg (275-300); CARBON DIOXIDE 28.5 mmol/L (21.0-32.0); CHLORIDE - SERUM 93 mmol/L (98-107); CREATININE - SERUM 0.8 mg/dL (0.6-1.3); GLUCOSE 111 mg/dL (74-106); POTASSIUM - SERUM 4.1 mmol/L (3.5-5.1); PROTEIN - SERUM 7.7 g/dL (6.4-8.2); SODIUM 128 mmol/L (136-145); UREA NITROGEN 8 mg/dL (7-18); eGFR NON AFRICAN AMERICAN 76 mL/min (90-120)
[2017-07-19 13:29] LABS: BASOPHILS 0 % (0-2); EOSINOPHILS 0.4 % (0-7); HEMATOCRIT 40.4 % (36.0-48.0); HEMOGLOBIN 14.3 g/dL (12-16); IMMATURE GRANULOCYTES 0.2 % (0-5); LYMPHOCYTES 24.7 % (15-50); MCH 31.2 pg (26.0-34.0); MCHC 35.4 g/dL (31.0-37.0); MEAN PLATELET VOLUME 9.4 fL (7.4-10.4); MONOCYTES 7.4 % (2-11); NEUTROPHILS 67.3 % (40-80); PLATELET COUNT 279 10x3/uL (130-400); RBC 4.59 10x6/uL (4.00-5.40); WBC 8.1 10x3/uL (4.8-10.8)
[2017-07-19 13:38] LABS: CREATINE KINASE 203 UL (21-215); PRO BNP 268 pg/mL (0-125)
[2017-07-19 13:43] LABS: TROPONIN-I < 0.017 ng/mL (0.000-0.060)
[2017-07-19] MEDS ORDERED: TAZTIA XT360 MG PO (19:50)
[2017-07-19] MEDS ORDERED: AVAPRO300 MG PO (19:51)
[2017-07-19] MEDS ORDERED: CARDIZEM CD360 MG PO (19:53)
[2017-07-19 20:00] VITALS: BP 175/73
[2017-07-20] VITALS: BP 198/95
[2017-07-20 04:00] VITALS: BP 190/80
[2017-07-20 04:30] VITALS: BP 175/73; Ht 167.6 cm; Wt 63.5 kg
[2017-07-20 09:13] VITALS: BP 150/81
[2017-07-20] MEDS ORDERED: CATAPRES-T1 PATCH.WK TD (11:27)
== END 2017-07-20 12:29 | disposition home or self-care (01) ==
LOC: D.ER 12:17 → OBSVTIME 14:36 → D.M2 14:36 → D.EDHOLD 14:36 → D.M2 18:32
PROVIDERS: Family Medicine
DX: I16.9 Hypertensive crisis, unspecified (principal); I25.119 Atherosclerotic heart disease of native coronary artery with unspecified angina pectoris

== ENCOUNTER 2017-07-21 23:26 | Emergency (ER) | payer BC ==
[2017-07-20 04:30] VITALS: BMI 22.9
[~2017-07-21 23:26] MED LIST changes: +CATAPRES-T1 PATCH.WK TD; +TAZTIA XT360 MG PO
[2017-07-22 00:14] LABS: BASOPHILS 0.3 % (0-2); EOSINOPHILS 0.6 % (0-7); HEMATOCRIT 38.4 % (36.0-48.0); HEMOGLOBIN 13.6 g/dL (12-16); IMMATURE GRANULOCYTES 0.3 % (0-5); MCH 31.7 pg (26.0-34.0); MCHC 35.4 g/dL (31.0-37.0); MCV 89.5 fL (80.0-100.0); MEAN PLATELET VOLUME 9.1 fL (7.4-10.4); MONOCYTES 14.1 % (2-11); NEUTROPHILS 41.7 % (40-80); PLATELET COUNT 275 10x3/uL (130-400); RBC 4.29 10x6/uL (4.00-5.40); RDW 12.1 % (11.5-14.5); WBC 6.3 10x3/uL (4.8-10.8)
[2017-07-22 00:23] LABS: ALBUMIN 3.8 g/dL (3.4-5.0); ALKALINE PHOSPHATASE 120 U/L (46-116); ALT (SGPT) 20 U/L (10-68); BILIRUBIN - TOTAL 0.23 mg/dL (0.2-1.3); CALC OSMOLALITY 262 mosm/kg (275-300); CALCIUM 8.9 mg/dL (8.5-10.1); CARBON DIOXIDE 26.4 mmol/L (21.0-32.0); CHLORIDE - SERUM 95 mmol/L (98-107); CREATININE - SERUM 0.8 mg/dL (0.6-1.3); GLUCOSE 106 mg/dL (74-106); POTASSIUM - SERUM 3.7 mmol/L (3.5-5.1); PROTEIN - SERUM 7.6 g/dL (6.4-8.2); SODIUM 131 mmol/L (136-145); UREA NITROGEN 13 mg/dL (7-18); eGFR NON AFRICAN AMERICAN 76 mL/min (90-120)
[2017-07-22 00:37] LABS: CKMB 2.5 U/L (0.0-3.6); CREATINE KINASE 198 UL (21-215)
[2017-07-22 00:39] LABS: TROPONIN-I < 0.017 ng/mL (0.000-0.060)
[2017-07-22 01:55] LABS: APPEARANCE CLEAR (CLEAR); BILIRUBIN NEGATIVE (NEGATIVE); COLOR YELLOW (YELLOW); GLUCOSE NEGATIVE (NEGATIVE); KETONE SMALL mg/dL (NEGATIVE); NITRITE NEGATIVE (NEGATIVE); PROTEIN NEGATIVE (NEGATIVE); UROBILINOGEN NORMAL (NORMAL)
== END 2017-07-22 03:46 | disposition home or self-care (01) ==
LOC: D.ER 23:26
PROVIDERS: Family Medicine
DX: I10 Essential (primary) hypertension (principal)

== ENCOUNTER 2018-04-04 10:36 | Outpatient (CLI) | payer MEDICARE, BC ==
[~2018-04-04] VITALS: Ht 167.6 cm; Wt 67.1 kg
--- NOTE | ~2018-04-04 | HEMODYNAMI ---
PATIENT:MEHUL STRINGER MEDICAL RECORD: [id number] : 54 [id number] ADMISSION DATE: 04/04/18 Generatedon:04/05/201811:48 Patient name: MEHUL STRINGER Patient #: [id number] SSN: [id number] : 1950 Date of study: 04/05/2018 Page: Of Hemodynamic Procedure Report Patient Data Patient Demographics Procedure consent was obtained First Name: MEHUL Gender: Female Last Name: SIOMARA : 1950 [facility] Initial: C Age: 68 year(s) Patient #: [id number] Race: SSN: [id number] Additional ID: [id number] Contact details Address: [address] [place] [address] State: [place] City: [facility] [place] Zip code: [address] Past Medical History Allergies Allergen Reaction Date Comments Reported Other allergy 04/26/2017 codeine Other allergy 04/27/2017 codeine Other allergy 05/24/2017 codeine Admission Admission Data Admission Date: 04/04/2018 Admission Time: 10:36 Room #: D.2116 Procedure Procedure Types Cath Procedure PCI Procedure Coronary Stent Coronary Stent Initial x2 Procedure Description Procedure Date Procedure Date: 04/05/2018 Procedure Start Time: 11:29 Procedure End Time: 11:45 Procedure Staff Name Function Arben You MD Performing Physician Theron Saeed RT Monitor Lindsay Thomason RT Scrub Abraham Terrazas RN Nurse Procedure Data Cath Procedure Fluoroscopy Diagnostic fluoroscopy Total fluoroscopy Time: 3.1 time: 3.1 min min Diagnostic fluoroscopy Total fluoroscopy dose: 434 dose: 434 mGy mGy Contrast Material Contrast Material Type Amount (ml) Isovue 300 73 Entry Location Entry Primary Successful Side Size Upsize Upsize Entry Closure Succes sful Closure Location (Fr) 1 (Fr) 2 (Fr) Remarks Device Remarks Femoral Left 6 Fr Exoseal artery Short Procedure Complications No complications Procedure Medications Medication Administration Route Dosage 0.9% NaCl I.V. 100 ml/hr Oxygen etCO2 Nasal cannula 2 l/min Heparin Flush Bag added to field 2 bags (1000units/500ml NS) Lidocaine 2% added to field 20 Versed I.V. 2 mg Fentanyl I.V. 100 mcg Versed I.V. 1 mg Versed I.V. 1 mg Heparin Bolus I.V. 4000 units Hemodynamics Rest Heart Rate: 39 (bpm) Snapshots Pre Cath Intra NCS Post Cath Vital Signs Time Heart Resp SPO2 etCO2 NIBP (mmHg) Rhythm Pain Sedation Rate (ipm) (%) (mmHg) Status Level (bpm) 11:11:16 84 15 99 0 173/90(127) NSR 0 (11) 10(A) , No pain 11:15:36 82 14 100 29.9 160/83(123) NSR 0 (11) 10(A) , No pain 11:19:54 84 14 100 35.9 151/77(114) NSR 0 (11) 10(A) , No pain 11:24:10 75 19 100 25.4 145/74(110) NSR 0 (11) 10(A) , No pain 11:28:22 78 18 97 33.7 139/78(110) NSR 0 (11) 10(A) , No pain 11:32:30 82 10 96 38.2 155/81(116) NSR 0 (11) 10(A) , No pain 11:36:46 86 22 98 39 145/79(108) NSR 0 (11) 10(A) , No pain 11:40:56 86 19 98 34.4 136/80(106) NSR 0 (11) 10(A) , No pain 11:45:04 86 98 98 37.4 146/78(105) NSR 0 (11) 10(A) , No pain Medications Time Medication Route Dose Verified Delivered Reason Notes Effectiveness by by 11:11:37 0.9% NaCl I.V. 100 Abraham Abraham Per physician ml/hr Mk Terrazas RN RN 11:11:46 Oxygen etCO2 2 Abraham Abraham Per physician Nasal l/min Mk Terrazas cannula RN RN 11:11:56 Heparin Flush added 2 Abraham Abraham used for Bag to bags Mk Terrazas procedure (1000units/500ml field RN RN NS) 11:12:08 Lidocaine 2% added 20ml Abraham Abraham for local to vial Mk Terrazas anesthetic field RN RN 11:24:00 Versed I.V. 2 mg Abraham Abraham for sedation Mk Terrazas RN RN 11:24:08 Fentanyl I.V. 100 Abraham Abraham for sedation mcg Mk Terrazas RN RN 11:26:55 Versed I.V. 1 mg Abraham Abraham for sedation Mk Terrazas RN RN 11:29:31 Versed I.V. 1 mg Abraham Abraham for sedation Mk Terrazas RN RN 11:31:00 Heparin Bolus I.V. 4000 Abraham Abraham for units Mk Terrazas anticoagulation RN deckhand oyster dredge Log Time Note 10:42:27 Informed consent obtained and on chart 10:42:49 Theron Saeed RT(R) sent for patient. Start room use. 10:42:50 Time tracking: Regular hours (M-F 7:00 - 5:00) 10:42:55 Plan of Care:Hemodynamics will remain stable., Cardiac rhythm will remain stable., Comfort level will be maintained., Respiratory function will remain adequate., Patient/ family verbilizes understanding of procedure., Procedure tolerated without complication., Recovers from procedure without complications.. 11:10:07 Patient received from Med II to CCL 2 Alert and oriented. Tansferred to table in Supine position. 11:10:08 Warm blankets applied, and phong hugger turned on for patient comfort. 11:10:08 Correct patient and procedure confirmed by team. 11:10:09 ECG and BP/O2 sat monitors applied to patient. 11:10:10 Vital chart was started 11:10:11 Baseline sample Acquired. 11:10:15 Rhythm: sinus rhythm 11:10:16 Full Disclosure recording started 11:10:21 H&P Date Dictated: 04/05/2018 Within 30 days and on chart.. 11:10:22 Pre-procedure instructions explained to patient. 11:10:23 Pre-op teaching completed and patient verbalized understanding. 11:10:24 Family in patients room. 11:10:31 Patient NPO since Breakfast. 11:10:40 Is the patient allergic to Iodine/contrast media? No. 11:10:41 Was the patient premedicated? No 11:10:42 Is patient on blood thinner?Yes 11:10:45 ACC The patient was administered the following blood thiners within the last 24 hours: ACCPlavix 11:10:49 Patient diabetic? No. 11:10:51 Previous problem with sedation/anesthesia? No ? 11:10:53 Snore? Yes 11:10:54 Sleep apnea? No 11:10:55 Deviated septum? No 11:10:55 Opens mouth fully? Yes 11:10:56 Sticks out tongue? Yes 11:11:00 Airway obstruction? No ? 11:11:03 Dentures? No ? 11:11:08 Pre procedure: right dorsailis pedis pulse 2+ Normal; easily identifiable; not easily obliterated 11:11:10 Pre procedure: left dorsailis pedis pulse 2+ Normal; easily identifiable; not easily obliterated 11:11:11 Patient pain scale 0/10 ?. 11:11:18 IV patent on arrival in right forearm with 0.9% NaCl at [facility]. 11:11:20 Lab results completed and on chart. 11:11:24 Left groin area was prepped with chlora-prep and draped in sterile fashion 11:11:25 Alarms reviewed by R. N. 11:11:25 Sharps counted by scrub and verified by R.N. 11:11:37 0.9% NaCl 100 ml/hr I.V. was administered by Abraham Terrazas RN; Per physician; 11:11:46 Oxygen 2 l/min etCO2 Nasal cannula was administered by Abraham Terrazas RN; Per physician; 11:11:56 Heparin Flush Bag (1000units/500ml NS) 2 bags added to field was administered by Abraham Terrazas RN; used for procedure; 11:12:08 Lidocaine 2% 20ml vial added to field was administered by Abraham Terrazas RN; for local anesthetic; 11:20:10 ACIST Syringe (64342) opened to sterile field. 11:20:10 Bag Decanter () opened to sterile field. 11:20:11 Medline Cath Pack ([id number]) opened to sterile field. 11:20:12 DIAGNOSTIC WIRE .035 260cm J wire ([id number]) opened to sterile field. 11:20:14 ACIST Hand Control (29484) opened to sterile field. 11:20:14 ACIST Manifold (57491) opened to sterile field. 11:20:16 Tegaderm 4 x 4 (1626W) opened to sterile field. 11:20:20 INFLATOR Merit BasixCompak (BL7935) opened to sterile field. 11:20:24 CHOICE PT Extra Support 182cm wire ([id number]) opened to sterile field. 11:20:27 EXOSEAL 6Fr (EX600) opened to sterile field. 11:20:30 SHEATH Prelude 6Fr 0.035 ([id number]-0E-41-035) opened to sterile field. 11:21:53 Physician arrived 11::13 --------ALL STOP TIME OUT------ 11::14 Final Timeout: patient, procedure, and site verified with staff and physician. All members of the team are in agreement. 11:23:16 Left groin site verified by team. 11::18 Physical assessment completed. ASA score P 2 - A patient with mild systemic disease as per Arben You MD. ::23 Sedation plan: IV Moderate Sedation Medication:Versed, Fentanyl 11::55 Zero performed for pressure channel P1 11:24:00 Versed 2 mg I.V. was administered by Abraham Terrazas RN; for sedation; 11:24:08 Fentanyl 100 mcg I.V. was administered by Abraham Terrazas RN; for sedation; 11::55 Versed 1 mg I.V. was administered by Abraham Terrazas RN; for sedation; 11:29:18 Procedure started. 11::27 Local anesthetic to left femerol artery with Lidocaine 2% by Arben You MD.INITIAL ACCESS ONLY 11:29:31 Versed 1 mg I.V. was administered by Abraham Terrazas RN; for sedation; 11:29:36 A 6 Fr Short sheath was inserted into the Left Femoral artery 11:29:52 6 Fr XBLAD 3.5 SH guide catheter was inserted over the wire 11:30:01 CPTES wire advanced. 11:31:00 Heparin Bolus 4000 units I.V. was administered by Abraham Terrazas RN; for anticoagulation; 34:23 Inflate balloon Inflation number: 1 A EUPHORA 2.5 x 10 Balloon ([id number]) was prepped and advanced across the 1st Diag, then inflated to 13 GUY for 0:10 (min:sec). 11:35:09 Balloon removed over the wire. 11:35:57 Place stent Inflation Number: 2 A ELLEN RX 2.25 x 15 stent ([id number]) was prepped and advanced across the 1st Diag. The stent was deployed at 15 GUY for 0:10 (min:sec). 11:36:01 Stent catheter was removed intact over wire. 11:37:00 Procedure type changed to Cath procedure, PCI procedure, Coronary Stent, Coronary Stent Initial x2 11:38:18 Place stent Inflation Number: 1 A ELLEN RX 4.0 x 08 stent ([id number]) was prepped and advanced across the LMCA. The stent was deployed at 17 GUY for 0:11 (min:sec). 11:38:33 Stent catheter was removed intact over wire. 11:38:34 Wire removed. 11:38:36 Guide catheter removed. 11:38:44 Sheath removed intact; hemostasis achieved with Exoseal to the Left Femoral artery. 11:38:47 Procedure ended.(Physican Out) 11:38:52 Contrast amount:Isovue 300 73ml. 11:38:57 Fluoroscopy time 03.10 minutes. 11:39:02 Flurop Dose total: 434 11:39:02 Fluoroscopy dose: 434 mGy 11:39:04 Sharps counted by scrub and verified by R.N. 11:39:05 Insertion/operative site no bleeding no hematoma. 11:39:07 Post-op/insertion site Left Femoral artery dressed using a 4 x 4 and Tegaderm. 11:39:12 Post left femerol artery:stable 11:39:18 Post procedure rhythm: sinus rhythm 11:39:20 Post procedure instruction explained to patient.Patient verbalizes understanding. 11:39:21 Procedure and supply charges have been captured, reviewed, submitted and are correct. 11:41:35 GUIDE 6FR XBLAD 3.5 SH catheter ([id number]) opened to sterile field. 11:42:00 Procedure Complication : No complications 11:45:09 Vital chart was stopped 11:45:09 See physician's report for complete and final results. 11:45:29 Report given to PCU. 11:45:42 Patient transfered to PCU with Bed. 11:45:44 Procedure ended. 11:45:44 Full Disclosure recording stopped 11:45:47 End room use (Document Last) Intervention Summary Intervention Notes Time ActionType Lesion and Equipment Used Action# Pressure Duration Attributes 11:34:23 Inflate 1st Diag EUPHORA 2.5 x 1 13 00:10 balloon 10 Balloon ([id number]) 11:35:57 Place stent 1st Diag ELLEN RX 2.25 x 2 15 00:10 15 stent ([id number]) 11:38:18 Place stent LMCA ELLEN RX 4.0 x 1 17 00:11 08 stent ([id number]) Device Usage Item Name Manufacture Quantity Catalog Number Hospital Part Current Minimal Lot# / Charge Number Stock Stock Serial# Code ACIST Syringe Acist 1 69354 167655 600713 366599 20 (85940) [employer] Bag Decanter Microtek 1 480317 15089 868267 5 () Medical Inc. Medline Cath Medline 1 [id number] 565411 59559 179506 5 Pack ([id number]) DIAGNOSTIC WIRE [place] 1 232824 659496 114171 891384 30 .035 260cm J wire (000048) ACIST Hand Acist 1 45139 428415 875821 530864 5 Control (75706) [employer] ACIST Manifold Acist 1 93018 546662 853349 830562 5 (40600) [employer] Inc Tegaderm 4 x 4 3M 1 1626W 619996 515315 647157 5 (1626W) INFLATOR Merit Merit 1 JI7809 663638 226483 085567 15 [facility] Medical (HC7345) CHOICE PT Extra [place] 1 [id number] 044952 851459 450743 5 Support 182cm Scientific wire ([id number]) EXOSEAL 6Fr Cardinal 1 EX600 784313 650198 766963 10 (EX600) Health SHEATH Prelude Merit 1 FBB-[id number] 375821 3697335 737729 5 6Fr 0.035 Medical (DDB-0I-21-035) EUPHORA 2.5 x Medtronic 1 [id number] 718759 278568 467154 5 [id number] 10 Balloon ([id number]) ELLEN RX 2.25 x Medtronic 1 [id number] 184613 6142949 705495 5 [id number] 15 stent ([id number]) ELLEN RX 4.0 x Medtronic 1 [id number] 022996 3280268 741777 5 [id number] 08 stent ([id number]) GUIDE 6FR XBLAD Cardinal 1 [id number] 609938 928667 041541 3 3.5 [facility] ([id number]) Signature Audit [place] Time Signature Unsigned Intra-Procedure 04/05/2018 Theron MEZA(Elsa) 11:48:30 AM Signatures Monitor : Theron Saeed RT Signature : Date : Time : [address] [address]
--- NOTE | ~2018-04-04 | MORECARE ---
CASE MANAGEMENT DISCHARGE SUMMARY PATIENT: MEHUL STRINGER UNIT: [id number] ADM DATE: 04/04/18 AGE: 68 : 52 SEX: F ROOM/BED: D.1226 AUTHOR: DESMOND BURROWS PHYSICIAN: REFERRING PHYSICIAN: TONI KOENIG MD DATE OF SERVICE: 04/07/18 Discharge Plan Patient Name: MEHUL STRINGER [facility] [facility] 1950 Planned Disposition: Home Anticipated Discharge Date: 04/06/18 Discharge Date: 04/06/2018 Expected LOS: 2 Initial Reviewer: [email or web address] Initial Review Date: 04/07/2018 Generated: 04/07/18 12:33 pm Patient Name: MEHUL STRINGER Page 89955 at 1133 All edits/amendments must be made on the electronic document DICTATION DATE: 04/07/18 1132 DOCUMENT IMAGING MANAGER: ADALID 04/07/18 1132 RPT#: [id number] DC DATE:04/06/18 STATUS: DIS IN [facility] [address] [place] [address] END OF REPORT
--- NOTE | ~2018-04-04 | HP ---
PATIENT: MEHUL KEATING MEDICAL RECORD: [id number] ACCOUNT: [id number] LOCATION:[facility] D.2116 : 54 ADMISSION DATE: 04/04/18 PCP: TONI KOENIG MD HISTORY AND PHYSICAL EXAMINATION DIAGNOSES: 1. Unstable angina. 2. Coronary artery disease. 3. Previous multivessel PTCA and stent. 4. Hypertension. 5. Hyperlipidemia. HISTORY: Mrs. Keating has been to [facility] multiple times over the past week with out of control hypertension and chest discomfort. She is now being transferred here for further care. She does have a history of coronary stenting, last being in 2013. She has multivessel PTCA and stent. REVIEW OF SYSTEMS: The patient reports easy bruising but reports no swollen glands. The patient reports no fever, no night sweats, no significant weight gain, no significant weight loss. No significant exercise tolerance. The patient reports no dry eyes, no irritation, no vision change. Patient reports no difficulty hearing and no ear pain. Patient reports no frequent nose bleeds or nose and sinus problems. Patient reports on arm pain on exertion. No shortness of breath while lying down. No history of heart murmur. Patient reports no cough, no wheezing or coughing up blood. Patient reports no abdominal pain, no vomiting. Normal appetite. No diarrhea and not vomiting blood. No nausea and no constipation. Patient reports no incontinence. No difficulty urinating. No hematuria. No increased frequency. Patient reports no muscle aches. No weakness, no arthralgias, no back pain. No swelling of the extremities. Patient reports no abnormal mole, no jaundice, no rashes. Reports no loss of consciousness. No weakness and no numbness. No seizures, dizziness, or headaches. The patient reports no depression, no sleep disturbance, feeling safe in a relationship and no alcohol abuse. Patient reports on fatigue. Reports no runny nose or sinus pressure. No itching, no hives, and no frequent sneezing. PHYSICAL EXAMINATION: GENERAL APPEARANCE: Well-nourished, well-developed, appears stated age. Level of distress, comfortable. PSYCHIATRIC: Mental status, alert, normal affect. Orientation, oriented to time, place and person. EYES: Lids and conjunctiva, noninjected. No discharge, no pallor. ENT: Lips, teeth, gums, normal dentition. Oropharynx, no cyanosis, no pallor. NECK: Carotid arteries, bilateral normal upstroke, no bruits, no thrills. JUGULAR VEINS: No jugular venous pressure or distention. CERVICAL LYMPH NODES: Nontender, nonenlarged. THYROID: Not enlarged. Nontender. No nodules. LUNGS: Respiratory effort, unlabored. CHEST: Normal curvature. No thoracic deformity. No chest wall tenderness. Percussion, resonant. Auscultation, clear. No wheezes, no rales, no rhonchi. CARDIOVASCULAR: Precordial exam, nondisplaced. No heaves or pericardial thrills. Rate and rhythm, regular. Heart sounds, normal S1, normal S2. No S3, no gallop, no rub. Systolic murmur, not heard. Diastolic murmur, not heard. EXTREMITIES: No cyanosis, no edema. Peripheral pulses, full and equal in all extremities, except as noted. No bruits appreciated. HISTORY AND PHYSICAL [id number] MEHUL KEATING ABDOMEN: Soft, nondistended. Normal aorta. No bruit. Nontender. No masses. Liver, nontender, no hepatomegaly. Spleen, nontender, no splenomegaly. MUSCULOSKELETAL: No joint tenderness. No joint swelling. No erythema. NEUROLOGICAL: Normal gait, normal strength, normal tone. SKIN: Warm and dry. OVERALL IMPRESSION: Out of control hypertension with significant ongoing chest pain. We will discontinue her diltiazem and place her on Procardia XL. Discontinue her Avapro and take her to [facility]. Continue her Coreg. Proceed with coronary angiography as well as renal angiography. Further care depends upon the findings of the angiography. TRANSINT:[id number] Voice Confirmation ID: [id number] DOCUMENT ID: [id number] TONI KOENIG MD at 1059 CC: [id number] DICTATION DATE: 04/04/18 1654 WIND ENERGY ENGINEER: 04/04/18 1806 DIS IN 04/06/18 [place] [id number] [place] [address]
--- NOTE | ~2018-04-04 | HEMODYNAMI ---
PATIENT:MEHUL STRINGER MEDICAL RECORD: [id number] : 54 [id number] ADMISSION DATE: 04/04/18 Generatedon:04/04/201816:58 Patient name: MEHUL STRINGER Patient #: [id number] SSN: [id number] : 1950 Date of study: 04/04/2018 Page: Of Hemodynamic Procedure Report Patient Data Patient Demographics Procedure consent was obtained First Name: MEHUL Gender: Female Last Name: SIOMARA : 1950 [facility] Initial: C Age: 68 year(s) Patient #: [id number] Race: SSN: [id number] Additional ID: [id number] Contact details Address: [address] [place] [address] State: [place] City: [facility] Zip code: [address] Past Medical History Allergies Allergen Reaction Date Comments Reported Other allergy 04/26/2017 codeine Other allergy 04/27/2017 codeine Other allergy 05/24/2017 codeine Admission Admission Data Admission Date: 04/04/2018 Admission Time: 10:36 Room #: D.2116 Procedure Procedure Types Cath Procedure Diagnostic Procedure [facility] w/Coronaries Sedation Charges Moderate Sedation up to 30 minutes PCI Procedure Coronary Stent Coronary Stent Initial Peripheral Cath Diagnostic Procedure Abd/Extremity Renal Bilat Renal Arteriogram Peripheral vascular Intervention Stent Stent-Arterial Inititial Procedure Description Procedure Date Procedure Date: 04/04/2018 Procedure Start Time: 16:31 Procedure End Time: 16:57 Procedure Staff Name Function Arben You MD Performing Physician Abraham Terrazas RN Nurse [place]le RT Scrub Barbra Potts RT Monitor Procedure Data Cath Procedure Fluoroscopy Diagnostic fluoroscopy Total fluoroscopy Time: 6 time: 6 min min Diagnostic fluoroscopy Total fluoroscopy dose: 651 dose: 651 mGy mGy Contrast Material Contrast Material Type Amount (ml) Isovue 300 150 Entry Location Entry Primary Successful Side Size Upsize Upsize Entry Closure Succes sful Closure Location (Fr) 1 (Fr) 2 (Fr) Remarks Device Remarks Femoral Right 5 Fr 6 Fr Exoseal artery Short Estimated blood loss: 10 ml Diagnostic catheters Device Type Used For End Catheter Placement MULTIPACK Pigtail 5 Fr Procedure catheter MULTIPACK JL 4.0 5Fr Procedure catheter MULTIPACK 3DRC 5Fr Procedure catheter Procedure Complications No complications Procedure Medications Medication Administration Route Dosage 0.9% NaCl I.V. 100 ml/hr Oxygen etCO2 Nasal cannula 2 l/min Heparin Flush Bag added to field 2 bags (1000units/500ml NS) Lidocaine 2% added to field 20 Versed I.V. 1 mg Fentanyl I.V. 50 mcg Versed I.V. 1 mg Fentanyl I.V. 50 mcg Versed I.V. 1 mg Versed I.V. 1 mg Heparin Bolus I.V. 4000 units Integrilin (Bolus I.V. 5.6 ml 2mg/ml) Integrilin (Bolus wasted 4.4 ml 2mg/ml) Plavix P.O. 600 mg Hemodynamics Rest Pre Cath Intra NCS Post Cath Vital Signs Time Heart Resp SPO2 etCO2 NIBP (mmHg) Rhythm Pain Sedation Rate (ipm) (%) (mmHg) Status Level (bpm) 16:15:18 66 17 98 0 181/86(124) NSR 0 (11) 10(A) , No pain 16:19:44 59 17 99 34.8 160/79(134) NSR 0 (11) 10(A) , No pain 16:24:02 60 16 95 31.8 156/80(106) NSR 0 (11) 10(A) , No pain 16:28:16 63 17 96 0 156/86(131) NSR 0 (11) 10(A) , No pain 16:32:34 68 25 98 40.1 163/74(128) NSR 0 (11) 10(A) , No pain 16:36:54 75 19 97 37.1 137/81(112) NSR 0 (11) 9(A) , No pain 16:41:08 66 12 96 40.8 141/68(104) NSR 0 (11) 9(A) , No pain 16:45:24 68 19 95 40.1 129/64(103) NSR 0 (11) 9(A) , No pain 16:49:32 74 13 95 38.6 137/74(103) NSR 0 (11) 10(A) , No pain 16:53:44 69 32 95 38.6 140/71(101) NSR 0 (11) 10(A) , No pain 16:57:58 63 12 37.1 134/70(104) NSR 0 (11) 10(A) , No pain Medications Time Medication Route Dose Verified Delivered Reason Notes Effectiveness by by 16:13:27 0.9% NaCl I.V. 100 Abraham Abraham Per physician ml/hr Mk Terrazas RN RN 16:13:36 Oxygen etCO2 2 Abraham Abraham Per physician Nasal l/min Mk Terrazas cannula RN RN 16:13:52 Heparin Flush added 2 Abraham Abraham used for Bag to bags Mk Terrazas procedure (1000units/500ml RN RN NS) 16:14:02 Lidocaine 2% added 20ml Abraham Abraham for local to vial Mk Terrazas anesthetic RN RN 16:17:56 Versed I.V. 1 mg Abraham Abraham for sedation Mk Terrazas RN RN 16:18:04 Fentanyl I.V. 50 Abraham Abraham for sedation mcg Mk Terrazas RN RN 16:21:59 Versed I.V. 1 mg Abraham Abraham for sedation Mk Terrazas RN RN 16:22:03 Fentanyl I.V. 50 Abraham Abraham for sedation mcg Mk Terrazas RN RN 16:27:50 Versed I.V. 1 mg Abraham Abraham for sedation Mk Terrazas RN RN 16:30:03 Versed I.V. 1 mg Abraham Abraham for sedation Mk Terrazas RN RN 16:36:58 Heparin Bolus I.V. 4000 Abraham Abraham for units Mk Terrazas anticoagulation RN RN 16:37:14 Integrilin I.V. 5.6 Abraham Abraham for (Bolus 2mg/ml) ml Mk Terrazas antiplatelet RN RN therapy 16:37:28 Integrilin wasted 4.4 Abraham Abraham to sharp's (Bolus 2mg/ml) ml Mk Terrazas RN RN 16:52:06 Plavix P.O. 600 Abraham Abraham for mg Mk Terrazas antiplatelet RN RN therapy Procedure Log Time Note 16:09:17 Diagnostic Cath status Elective 16:09:20 Abraham Lorigan RN sent for patient. Start room use. 16:09:31 Time tracking: Regular hours (M-F 7:00 - 5:00) 16:09:36 Plan of Care:Hemodynamics will remain stable., Cardiac rhythm will remain stable., Comfort level will be maintained., Respiratory function will remain adequate., Patient/ family verbilizes understanding of procedure., Procedure tolerated without complication., Recovers from procedure without complications.. 16:09:42 Patient received from Med II to [facility] 2 Alert and oriented. Tansferred to table in Supine position. 16:09:43 Warm blankets applied, and phong hugger turned on for patient comfort. 16:09:44 Correct patient and procedure confirmed by team. 16:09:47 Signed procedure consent form obtained from patient. 16:09:49 ECG and BP/O2 sat monitors applied to patient. 16:10:05 H&P Date Dictated: 04/03/2018 Within 30 days and on chart., H&P Addendum completed by physician on day of procedure. (MUST COMPLETE FOR ALL OUTPATIENTS). 16:10:09 Pre-procedure instructions explained to patient. 16:10:12 Family in patients room. 16:10:15 Patient NPO since Midnight. 16:10:48 Is the patient allergic to Iodine/contrast media? No. 16:10:50 Was the patient premedicated? Yes 16:10:52 Is patient on blood thinner?No 16:13:27 0.9% NaCl 100 ml/hr I.V. was administered by Abraham Terrazas RN; Per physician; 16:13:36 Oxygen 2 l/min etCO2 Nasal cannula was administered by Abraham Terrazas RN; Per physician; 16:13:43 Patient diabetic? No. 16:13:52 Heparin Flush Bag (1000units/500ml NS) 2 bags added to field was administered by Abraham Terrazas RN; used for procedure; 16:13:55 Previous problem with sedation/anesthesia? Yes nausea vomiting 16:13:57 Snore? Yes 16:13:59 Sleep apnea? Yes 16:14:02 Lidocaine 2% 20ml vial added to field was administered by Abraham Terrazas RN; for local anesthetic; 16:14:05 Patient pain scale 0/10 ?. 16:14:09 Vital chart was started 16:14:18 IV patent on arrival in left forearm with 0.9% NaCl at [facility]. 16:14:23 Lab results completed and on chart. 16:14:26 Right groin area was prepped with chlora-prep and draped in sterile fashion 16:14:27 Alarms reviewed by RIngris N. 16:14:28 Sharps counted by scrub and verified by LizN. 16:14:29 Physician paged 16:14:32 Physician arrived 16:14:33 --------ALL STOP TIME OUT------ 16:14:33 Final Timeout: patient, procedure, and site verified with staff and physician. All members of the team are in agreement. 16:14:35 Right groin site verified by team. 16:14:39 Physical assessment completed. ASA score P 2 - A patient with mild systemic disease as per Arben You MD. 16:14:43 Sedation plan: IV Moderate Sedation Medication:Versed, Fentanyl 16:14:59 Use device set Femoral Dx 16:15:35 ACIST Syringe (32629) opened to sterile field. 16:15:35 Bag Decanter (2002S) opened to sterile field. 16:15:35 Medline Cath Pack ([id number]) opened to sterile field. 16:15:36 DIAGNOSTIC WIRE .035 260cm J wire (788251) opened to sterile field. 16:15:37 ACIST Hand Control (87831) opened to sterile field. 16:15:37 ACIST Manifold (21022) opened to sterile field. 16:15:38 DIAGNOSTIC Multipack 5Fr catheter set (DX6613) opened to sterile field. 16:15:41 Tegaderm 4 x 4 (1626W) opened to sterile field. 16:15:43 PERCUTANEOUS ENTRY 19GA needle opened to sterile field. 16:15:45 SHEATH Prelude 5Fr 0.035 (THB-6A-11-035) opened to sterile field. 16:17:56 Versed 1 mg I.V. was administered by Abraham Terrazas RN; for sedation; 16:18:04 Fentanyl 50 mcg I.V. was administered by Abraham Terrazas RN; for sedation; 16:21:59 Versed 1 mg I.V. was administered by Abraham Terrazas RN; for sedation; 16:22:03 Fentanyl 50 mcg I.V. was administered by Abraham Terrazas RN; for sedation; 16:27:50 Versed 1 mg I.V. was administered by Abraham Terrazas RN; for sedation; 16:30:03 Versed 1 mg I.V. was administered by Abraham Terrazas RN; for sedation; 16:30:46 Procedure started. 16:30:46 Full Disclosure recording started 16:31:01 Local anesthetic to right femoral artery with Lidocaine 2% by Arben You MD.INITIAL ACCESS ONLY 16:31:17 Zero performed for pressure channel P1 16:31:51 A 5 Fr sheath was inserted into the Right Femoral artery 16:32:15 A MULTIPACK Pigtail 5 Fr catheter was advanced over the wire and used for Procedure. 16:32:20 LV gram done using KRUGER 16:32:24 Injector settings: Ml/sec: 10, Volume: 20, 16:32:51 EF : 60 % 16:32:53 Catheter removed. 16:32:59 A MULTIPACK JL 4.0 5Fr catheter was advanced over the wire and used for Procedure. 16:34:07 LCA angiography performed. 16:34:09 Catheter removed. 16:34:18 A MULTIPACK 3DRC 5Fr catheter was advanced over the wire and used for Procedure. 16:35:28 RCA angiography performed. 16:36:17 Left renal angiography performed. 16:36:47 Right renal angiography performed. 16:36:53 Catheter removed. 16:36:58 Heparin Bolus 4000 units I.V. was administered by Abraham Terrazas RN; for anticoagulation; 16:36:59 SHEATH 6FR [place] (YMN075) opened to sterile field. 16:37:03 INFLATOR Merit BasixCompak (KE1545) opened to sterile field. 16:37:09 CHOICE PT Extra Support 182cm wire ([id number]) opened to sterile field. 16:37:14 Integrilin (Bolus 2mg/ml) 5.6 ml I.V. was administered by Abraham Terrazas RN; for antiplatelet therapy; 16:37:28 Integrilin (Bolus 2mg/ml) 4.4 ml wasted was administered by Abraham Terrazas RN; to sharp's; 16:37:28 Sheath upsized to a 6 Fr Short. 16:38:19 GUIDE 6FR HS II SH catheter ([id number]) opened to sterile field. 16:38:31 6 Fr HS 2 SH guide catheter was inserted over the wire 16:39:47 UNABLE TO ENGAGE RCA. CATH REMOVED 16:40:34 GUIDE 6FR HS I SH catheter (EG9OLPEP) opened to sterile field. 16:40:58 6 Fr HS 1 SH guide catheter was inserted over the wire 16:41:26 CHOICE ES 182 wire advanced. 16:41:45 Wire advanced across lesion. 16:42:36 Inflate balloon Inflation number: 1 A EUPHORA 3.5 x 15 Balloon ([id number]) was prepped and advanced across the Prox RCA, then inflated to 17 GUY for 0:10 (min:sec). 16:42:50 Inflation number: 2 The EUPHORA 3.5 x 15 Balloon ([id number]) was reinflated across the Prox RCA, to 17 GUY for 0:10 (min:sec). 16:43:20 Balloon removed over the wire. 16:44:31 Place stent Inflation Number: 3 A ELLEN RX 3.5 x 34 stent ([id number]) was prepped and advanced across the Prox RCA. The stent was deployed at 15 GUY for 0:10 (min:sec). 16:45:00 Stent catheter was removed intact over wire. 16:45:00 Wire removed. 16:45:02 Guide catheter removed. 16:45:57 Cordis 6Fr RDC guide catheter opened to sterile field. 16:46:15 6 Fr RDC guide catheter was inserted over the wire 16:48:36 Procedure type changed to Cath procedure, Diagnostic procedure, LHC, LHC w/Coronaries, Sedation Charges, Moderate Sedation up to 30 minutes, PCI procedure, Coronary Stent, Coronary Stent Initial, Peripheral Cath Diagnostic Procedure, Abd/Extremity, Renal, Bilat Renal Arteriogram, Peripheral vascular Intervention, Stent, Stent-Arterial Inititial 16:49:29 CHOICE ES 182 wire advanced. 16:49:30 Wire advanced across lesion. 16:49:35 Place stent Inflation Number: 1 A PALMAZ BLUE 5 x 15 x 135 stent ([id number]) was prepped and advanced across the Ostial Renal, Left. The stent was deployed at 9 GUY for 0:10 (min:sec). 16:49:40 Stent catheter was removed intact over wire. 16:49:44 Wire removed. 16:49:46 Guide catheter removed. 16:49:57 EXOSEAL 6Fr (EX600) opened to sterile field. 16:50:39 Sheath removed intact; hemostasis achieved with Exoseal to the Right Femoral artery. 16:52:02 Procedure ended.(Physican Out) 16:52:06 Plavix 600 mg P.O. was administered by Abraham Terrazas RN; for antiplatelet therapy; 16:52:08 Fluoroscopy time 06.00 minutes. 16:52:13 Fluoroscopy dose: 651 mGy 16:52:13 Flurop Dose total: 651 16:52:19 Contrast amount:Isovue 300 150ml. 16:52:20 Sharps counted by scrub and verified by R.N. 16:52:32 Femstop placed over the right femoral artery at 150 mmHg. Hemostasis achieved. 16:52:35 FEMSTOP Gold (M25886) opened to sterile field. 16:52:35 Post-procedure physical assessment completed. ASA score P 2 - A patient with mild systemic disease as per Arben You MD. 16:52:38 Post procedure rhythm: sinus rhythm 16:52:42 Estimated blood loss: 10 ml 16:53:08 Post procedure instruction explained to patient.Patient verbalizes understanding. 16:53:09 Patient needs reinforcement of post procedure teaching. 16:57:24 Procedure and supply charges have been captured, reviewed, submitted and are correct. 16:57:27 Procedure Complication : No complications 16:57:32 Vital chart was stopped 16:57:32 See physician's report for complete and final results. 16:57:34 Report given to PCU. 16:57:36 Patient transfered to [facility] with Bed. 16:57:38 Procedure ended. 16:57:38 Full Disclosure recording stopped 16:57:43 End room use (Document Last) Intervention Summary Intervention Notes Time ActionType Lesion and Equipment Used Action# Pressure Duration Attributes 16:42:36 Inflate Prox RCA EUPHORA 3.5 x 1 17 00:10 balloon 15 Balloon ([id number]) 16:42:50 Reinflate Prox RCA EUPHORA 3.5 x 2 17 00:10 balloon 15 Balloon (ALV9169O) 16:44:31 Place stent Prox RCA ELLEN RX 3.5 x 3 15 00:10 34 stent ([id number]) 16:49:35 Place stent Ostial PALMAZ BLUE 5 1 9 00:10 Renal, Left x 15 x 135 stent ([id number]) Device Usage Item Name Manufacture Quantity Catalog Number Hospital Part Current Minimal Lot# / Charge Number Stock Stock Serial# Code ACIST Syringe Acist 1 80475 447539 769563 449279 20 (70208) Medical Systems Inc Bag Decanter Microtek 1 2001S 334881 61702 261576 5 () Medical Inc. Medline Cath Medline 1 [id number] 529794 15010 262306 5 Pack ([id number]) DIAGNOSTIC WIRE St Kel[place] 1 613174 933069 042710 708673 30 .035 260cm J wire (795750) ACIST Hand Acist 1 26902 803595 325150 146458 5 Control (51672) Medical Systems Inc ACIST Manifold Acist 1 43374 415769 220771 130062 5 (63674) Medical Systems DoubleUp DIAGNOSTIC Cardinal 1 NN7123 903761 60455 229095 30 Multipack 5Fr Health catheter set (FR1659) Tegaderm 4 x 4 3M 1 1626W 587812 456894 028105 5 (1626W) PERCUTANEOUS Cook Medical 1 D14656 854426 050810 5 ENTRY 19GA needle SHEATH Prelude Merit 1 XNG-9S-36-035 234164 074936 645237 5 5Fr 0.035 Medical (RCA-7Z-62-035) MULTIPACK Cardinal 1 467510 5 Pigtail 5 Fr Health catheter MULTIPACK JL Cardinal 1 912872 5 4.0 5Fr Health catheter MULTIPACK 3DRC Cardinal 1 281877 5 5Fr catheter Health SHEATH 6FR Terumo 1 RVY914 187715 788215 578277 40 [place]ipton (ETY944) INFLATOR Merit Merit 1 YJ8954 586488 334050 995078 15 ResponseTap (formerly AdInsight) (BW1879) CHOICE PT Extra [place] 1 [id number] 606149 890513 938108 5 Support 182cm Scientific wire (1694769X0) GUIDE 6FR HS II Medtronic 1 JU3QNDNMT 547031 44145 171791 1 SH catheter (TF8DOEJNX) GUIDE 6FR HS I Medtronic 1 DL2SZTMR 725330 94485 181528 1 SH catheter (RC9EILBR) EUPHORA 3.5 x Medtronic 1 WUQ4457R 081487 004645 248252 5 [id number] 15 Balloon (UKQ6425G) ELLEN RX 3.5 x Medtronic 1 [id number] 994088 6452421 224601 5 [id number] 34 stent ([id number]) Cordis 6Fr RDC Cardinal 1 92726502 109163 690998 855676 5 guide catheter Health PALMAZ BLUE 5 x Cardinal 1 [id number] 786386 396408 866494 5 15 x 135 stent Health ([id number]) EXOSEAL 6Fr Cardinal 1 EX600 111796 692414 403874 10 (EX600) Health FEMSTOP Gold St Kelby 1 H87994 272106 289179 902782 5 (F43162) Signature Audit [place] Stage Time Signature Unsigned Intra-Procedure 04/04/2018 Barbra Potts 4:58:35 PM RT(R) Signatures Monitor : Barbra Potts Signature : RT Date : Time : [place] [id number] [place] [address]
--- NOTE | ~2018-04-04 | OP ---
PATIENT NAME: MEHUL STRINGER MEDICAL RECORD: [id number] :54 LOCATION:D.M2 D.2116 ADMISSION DATE:04/04/18 SURGEON: TONI KOENIG MD DATE OF OPERATION: 04/04/2018 PROCEDURES: 1. Bilateral selective renal angiography. 2. BYPRODUCTS OPERATOR stent, left renal. INDICATION: Renovascular hypertension without renal insufficiency. DESCRIPTION OF PROCEDURE: After informed consent was obtained and after a detailed description of risks, benefits as well as alternative therapies, the patient elected to proceed with angiogram and angioplasty. The right femoral area had a preexisting sheath from cardiac intervention. All catheters exchanged through this sheath. FINDINGS: 1. The right renal artery is a solitary artery off the aorta with no significant renal artery stenosis. No pressure damping at the ostium. 2. The left renal artery is a solitary artery off the aorta with significant pressure damping at the ostium and greater than 70% renal artery stenosis proximally. BYPRODUCTS OPERATOR STENT OF THE LEFT RENAL ARTERY: The stent used was a 5 x 15 Palmaz blue. Result was 0% residual stenosis. OVERALL IMPRESSION: Successful percutaneous transluminal angioplasty stent of the left renal artery going from greater than 70% initial stenosis to 0% residual. TRANSINT:[id number] Voice Confirmation ID: [id number] DOCUMENT ID: [id number] TONI KOENIG MD at 1059 CC: [id number] DICTATION DATE: 04/04/18 173 VICE PRESIDENT INVESTOR RELATIONS: 04/04/182048 DIS IN 04/06/18 [place] [id number] [place] [id number]
--- NOTE | ~2018-04-04 | DS ---
PATIENT:MEHUL KEATING :54 MEDICAL RECORD: [id number] DISCHARGE SUMMARY ADMISSION DATE: 04/04/18 DISCHARGE DATE: 04/06/18 DISCHARGE DIAGNOSES: 1. Unstable angina. 2. Coronary artery disease. 3. PTCA and stent of left main, LAD diagonal and RCA this admission. 4. Renovascular hypertension. 5. Status post BARREL STRAIGHTENER and stent of renal artery this admission. 6. Hyperlipidemia. HOSPITAL COURSE: Ms. Keating presented with unstable anginal symptomatology, found to have multivessel coronary artery disease. Underwent multivessel PTCA and stent with drug-eluting stents as well as renovascular hypertension and underwent BARREL STRAIGHTENER and stent of renal artery. Blood pressure normalized with the discontinuation of diltiazem and the addition of Procardia-XL. [facility] follow [facility] with [facility] 1 month. TRANSINT:[id number] Voice Confirmation ID: [id number] DOCUMENT ID: [id number] TONI KOENIG MD at 1059 CC: [id number] DICTATION DATE: 04/06/18 1014 WINDER HELPER: 04/07/18 0041 DIS IN 04/06/18 [facility] [address] [place] [address]
--- NOTE | ~2018-04-04 | OP ---
PATIENT NAME: MEHUL STRINGER MEDICAL RECORD: [id number] :54 LOCATION:D.M2 D.2116 ADMISSION DATE:04/04/18 SURGEON: TONI KOENIG MD DATE OF OPERATION: 04/05/2018 PROCEDURES: 1. PTCA and stent, LAD diagonal. 2. PTCA and stent, left main. 3. Selective coronary angiography. INDICATIONS: Angina and coronary artery disease. PROCEDURE IN DETAIL: After informed consent was obtained with detailed description of risks and benefits as well as alternative therapies, the patient elected to proceed with angiogram and angioplasty. The left femoral area was prepped and draped in normal sterile fashion. The left femoral artery was cannulated via modified Seldinger technique with placement of 6-Syrian sheath. All catheters were exchanged through this sheath. FINDINGS: The LAD diagonal has 90% to 95% stenosis, addressed with 2.25 x 15-mm Dexter stent. Result was 0% residual stenosis. The left main has 80% stenosis at the ostium. This was addressed with a 4.0 x 9-mm Dexter stent. Result was 0% residual stenosis. OVERALL IMPRESSION: Successful PTCA and stent of LAD diagonal and left main, both going from 80% to 95% initial stenoses to 0% residual. TRANSINT:[id number] Voice Confirmation ID: [id number] DOCUMENT ID: [id number] TONI KOENIG MD at 1059 CC: [id number] DICTATION DATE: 04/05/18 1144 COMMUNICATIONS TECH: 04/05/18 1158 DIS IN 04/06/18 [place] [address]
[2018-04-04 11:14] VITALS: BP 154/71; BMI 23.3
[2018-04-04] MEDS ORDERED: HYDROCHLOROTH12.5 M1 PO (13:31)
[2018-04-04] MEDS ORDERED: ANTIVERT12.5 MG PO (13:32)
[2018-04-04] MEDS ORDERED: RANITIDINE HCL150 M1 PO (13:33)
[2018-04-04 21:01] VITALS: BP 111/53
[2018-04-05 01:29] VITALS: BP 116/54
[2018-04-05 05:44] VITALS: BP 168/72
[2018-04-05 08:13] VITALS: BP 155/64
[2018-04-05 15:20] VITALS: Ht 167.6 cm; Wt 67.1 kg
[2018-04-05 15:25] VITALS: BP 149/72
[2018-04-05 21:01] VITALS: BP 152/76
[2018-04-06] VITALS: BP 151/69
[2018-04-06 06:11] VITALS: BP 112/63
[2018-04-06 08:30] VITALS: BP 132/59
[2018-04-06] MEDS ORDERED: NIFEDIPINE ER90 MG PO (11:21)
[2018-04-06] MEDS ORDERED: PLAVIX75 MG PO (11:22)
[2018-04-06 11:37] VITALS: BP 102/45
== END 2018-04-06 14:14 | disposition home or self-care (01) ==
LOC: OBSVTIME → D.M2 10:36 → UNDOADMOB 10:36 → D.OPS 10:36 → D.M2 10:36 → OBSVTIME 12:10 → EDSTATUS 04-05 11:00 → D.M2 04-06 14:14 → D.OPS 04-06 14:14
DX: I25.110 Atherosclerotic heart disease of native coronary artery with unstable angina pectoris (principal); Z95.5 Presence of coronary angioplasty implant and graft; I15.0 Renovascular hypertension; E78.5 Hyperlipidemia, unspecified; I70.1 Atherosclerosis of renal artery
CPT/HCPCS: 93458; 37236; 37246; C9600 ×3

== ENCOUNTER → 2018-11-21 09:11 | Outpatient (CLI) | payer MEDICARE, BC ==
[2018-04-05 15:20] VITALS: BMI 22.9
[~2018-11-21 09:11] MED LIST changes: +ANTIVERT12.5 MG PO; +HYDROCHLOROTH12.5 M1 PO; +NIFEDIPINE ER90 MG PO; +RANITIDINE HCL150 M1 PO
--- NOTE | 2018-11-23 10:00 | ST ---
PATIENT:MEHUL STRINGER MEDICAL RECORD: [id number] SEX: F LOCATION:[facility] ORDER #: ADMISSION DATE: 11/21/18 AGE OF PATIENT: 68 REFERRING PHYSICIAN: INTERPRETING PHYSICIAN: TONI KOENIG MD DATE OF SERVICE: 11/21/2018 PROCEDURE: Nuclear stress test. INDICATIONS: Angina, coronary artery disease, shortness of breath. She was exercised on standard Lexiscan protocol with 32 mCi of sestamibi injected at peak stress, 11 mCi used previously for rest images. FINDINGS: Gated SPECT reveals preserved ejection fraction at 80% with good wall motion and thickening and brightening throughout all segments. SPECT imaging Cardiolite was used as myocardial fusion agent. There is homogeneous uptake throughout all segments at rest and stress with no evidence of inducible ischemia or previous infarction. OVERALL IMPRESSION: 1. This is a normal nuclear stress test with no evidence of inducible ischemia or previous infarction. 2. Gated SPECT reveals a preserved ejection fraction at 80%. In this patient with ongoing symptomatology, the current scan does not suggest the presence of hemodynamically significant coronary artery disease. Evaluate noncardiac etiology of chest pain. TRANSINT:[id number] Voice Confirmation ID: [id number] DOCUMENT ID: [id number] TONI KOENIG MD at 1000 CC: MARK MENARD [id number] DICTATION DATE: 11/21/18 1623 COMMUNITY HEALTH SPECIALIST: 11/22/18 0709 DEP CLI 11/21/18 [facility] [address] [place] [address]
== END | disposition home or self-care (01) ==
LOC: D.HCCARDIO 09:11
PROVIDERS: ATTEND Internal Medicine Interventional Cardiology
DX: I25.119 Atherosclerotic heart disease of native coronary artery with unspecified angina pectoris (principal)

== ENCOUNTER 2019-08-19 04:41 | Inpatient (IN) | payer MEDICARE, BC ==
[~2019-08-19] VITALS: Ht 167.6 cm; Wt 60.9 kg
[2019-08-19] VITALS (7 sets, daily range): BP systolic 101–126; BP diastolic 52–68; Ht 167.6 cm; Wt 60.9 kg
--- NOTE | ~2019-08-19 | HEMODYNAMI ---
PATIENT:MEHUL STRINGER MEDICAL RECORD: [id number] : 54 LOCATION[id number] ADMISSION DATE: 08/19/19 Generatedon:08/19/201912:17 Patient name: MEHUL STRINGER Patient #: [id number] SSN: [id number] : 1950 Date of study: 08/19/2019 Page: Of Hemodynamic Procedure Report Patient Data Patient Demographics Procedure consent was obtained First Name: MEHUL Gender: Female Last Name: SIOMARA : 1950 [facility] Initial: C Age: 69 year(s) Patient #: [id number] Race: SSN: [id number] Additional ID: [id number] Contact details Address: [address] [place] [address] [id number] State: [place] City: [place] Zip code: [address] Past Medical History Allergies Allergen Reaction Date Comments Reported Other allergy 04/26/2017 codeine Other allergy 04/27/2017 codeine Other allergy 05/24/2017 codeine Admission Admission Data Admission Date: 08/19/2019 Admission Time: 6:17 Admit Source: Other Room #: D.2121 Lab Results Lab Result Date: 08/19/2019 Lab Result Time: 0:00 Biochemistry Name Units Result Min Max BUN mg/dl 13 --(--*-)-- 7 18 Creatinine mg/dl 0.8 --(-*--)-- 0.6 1.3 eGFR ml/min 76.31615 *-(----)-- 90 120 NONAFRICAN CBC Name Units Result Min Max Hemoglobin g/dl 13.3 -*(----)-- 13.5 17.5 Procedure Procedure Types Cath Procedure Diagnostic Procedure [facility] w/Coronaries Sedation Charges Moderate Sedation up to 15 minutes PCI Procedure Coronary Stent Coronary Stent Initial Hemochron ACT Test Procedure Description Procedure Date Procedure Date: 08/19/2019 Procedure Start Time: 11:52 Procedure End Time: 12:11 Procedure Staff Name Function Estrada Holman MD Performing Physician Lindsay Thomason RT Monitor Leda Mujica RT Scrub Abraham Terrazas RN Nurse Indication Chest pain Procedure Data Cath Procedure Fluoroscopy Diagnostic fluoroscopy Total fluoroscopy Time: 5 time: 5 min min Diagnostic fluoroscopy Total fluoroscopy dose: 579 dose: 579 mGy mGy Contrast Material Contrast Material Type Amount (ml) Isovue 300 120 Entry Location Entry Primary Successful Side Size Upsize Upsize Entry Closure Succes sful Closure Location (Fr) 1 (Fr) 2 (Fr) Remarks Device Remarks Femoral Right 5 Fr 6 Fr Exoseal artery Short Estimated blood loss: 5 ml Diagnostic catheters Device Type Used For End Catheter Placement MULTIPACK JL 4.0 5Fr Left Coronary catheter Angiography MULTIPACK 3DRC 5Fr Right Coronary catheter Angiography MULTIPACK Pigtail 5 Fr LV Angiography catheter Procedure Complications No complications Procedure Medications Medication Administration Route Dosage 0.9% NaCl I.V. 100 ml/hr Oxygen etCO2 Nasal cannula 2 l/min Heparin Flush Bag added to field 2 bags (1000units/500ml NS) Lidocaine 2% added to field 20 Phenergan 12.5 mg Versed I.V. 2 mg Fentanyl I.V. 100 mcg Heparin Bolus I.V. 5000 units Integrilin (Bolus I.V. 5.6 ml 2mg/ml) Integrilin (Bolus wasted 4.4 ml 2mg/ml) Plavix P.O. 600 mg Hemodynamics Rest HGB: 13.3 (g/dl) Heart Rate: 133 (bpm) Pressure Samples Time Site Value (mmHg) Purpose Heart Use Rate(bpm) 11:56 LV 118/1,6 Snapshot 92 Gradients Valve Time Site Site Mean SEP/DFP Peak To Heart Use 1 2 (mmHg) (sec/min) Peak Rate (mmHg) (bpm) Aortic 11:56 LV AO 95 Snapshots Pre Cath Intra NCS Post Cath Vital Signs Time Heart Resp SPO2 etCO2 NIBP (mmHg) Rhythm Pain Sedation Rate (ipm) (%) (mmHg) Status Level (bpm) 11:45:02 84 12 99 24.3 134/76(106) NSR 0 (11) 10(A) , No pain 11:49:18 72 16 99 34.2 115/62(76) NSR 0 (11) 10(A) , No pain 11:53:28 71 16 98 40.3 120/64(96) NSR 0 (11) 10(A) , No pain 11:57:42 78 13 97 38.8 108/58(83) NSR 0 (11) 10(A) , No pain 12:01:52 70 10 96 40.3 100/59(82) NSR 0 (11) 10(A) , No pain 12:06:00 76 17 98 38.8 104/56(83) NSR 0 (11) 10(A) , No pain 12:10:08 79 18 98 32.7 112/58(80) NSR 0 (11) 10(A) , No pain 12:14:13 86 24 98 21.3 112/65(86) NSR 0 (11) 10(A) , No pain Medications Time Medication Route Dose Verified Delivered Reason Notes Effectiveness by by 11:47:15 0.9% NaCl I.V. 100 Abraham Abraham Per physician ml/hr Mk Terrazas RN RN 11:47:24 Oxygen etCO2 2 Abraham Abraham for low 02 sats Nasal l/min Mk Terrazas cannula RN RN 11:47:36 Heparin Flush added 2 Abraham Abraham used for Bag to bags Mk Terrazas procedure (1000units/500ml field VAZQUEZ RN NS) 11:47:48 Lidocaine 2% added 20ml Abraham Abraham for local to vial Mk Terrazas anesthetic field VAZQUEZ RN 11:48:15 Phenergan I. M. 12.5 Abraham Abraham for nausea mg Mk Terrazas RN RN 11:51:19 Versed I.V. 2 mg Abraham Abraham for sedation Mk Terrazas RN RN 11:51:27 Fentanyl I.V. 100 Abraham Abraham for sedation mcg Mk Terrazas RN RN 12:00:06 Heparin Bolus I.V. 5000 Abraham Abraham for units Mk Terrazas anticoagulation RN RN 12:00:27 Integrilin I.V. 5.6 Abraham Abraham for (Bolus 2mg/ml) ml Mk Terrazas antiplatelet RN RN therapy 12:00:41 Integrilin wasted 4.4 Abraham Abraham to sharp's (Bolus 2mg/ml) ml Mk Terrazas RN RN 12:13:08 Plavix P.O. 600 Abraham Abraham for mg Mk Terrazas antiplatelet RN RN therapy Procedure Log Time Note 11:14:23 Diagnostic Cath Status : Urgent 11:14:41 Indication : Chest pain 11:14:50 Admit Source: Other 11:14:53 Procedure Status Urgent Heart Cath (IP). 11:14:56 Time tracking: Call back (After hours or weekends) 11:15:01 Plan of Care:Hemodynamics will remain stable., Cardiac rhythm will remain stable., Comfort level will be maintained., Respiratory function will remain adequate., Patient/ family verbilizes understanding of procedure., Procedure tolerated without complication., Recovers from procedure without complications.. 11:21:45 Leda Mujica RT(R) sent for patient. Start room use. 11:32:48 Lab Result : Hemoglobin 13.3 g/dl 11:32:48 Lab Result : eGFR NONAFRICAN 76.15318 ml/min 11:32:48 Lab Result : BUN 13 mg/dl 11:32:48 Lab Result : Creatinine 0.8 mg/dl 11:33:41 Patient received from Med II to CCL 1 Alert and oriented. Tansferred to table in Supine position. 11:33:43 Signed procedure consent form obtained from patient. 11:33:44 Warm blankets applied, and phong hugger turned on for patient comfort. 11:33:44 Correct patient and procedure confirmed by team. 11:44:00 ECG and BP/O2 sat monitors applied to patient. 11:44:00 Vital chart was started 11:44:01 Baseline sample Acquired. 11:44:04 Rhythm: sinus rhythm 11:44:06 Full Disclosure recording started 11:44:10 H&P Date Dictated: 08/19/2019 New H&P dictated by physician.. 11:44:17 Pre-procedure instructions explained to patient. 11:44:19 Pre-op teaching completed and patient verbalized understanding. 11:44:22 Family in waiting room. 11:44:36 Patient NPO since Midnight. 11:47:15 0.9% NaCl 100 ml/hr I.V. was administered by Abraham Terrazas RN; Per physician; Verbal order read back and verified. 11:47:24 Oxygen 2 l/min etCO2 Nasal cannula was administered by Abraham Terrazas RN; for low 02 sats; Verbal order read back and verified. 11:47:36 Heparin Flush Bag (1000units/500ml NS) 2 bags added to field was administered by Abraham Terrazas RN; used for procedure; Verbal order read back and verified. 11:47:48 Lidocaine 2% 20ml vial added to field was administered by Abraham Terrazas RN; for local anesthetic; Verbal order read back and verified. 11:48:15 Phenergan 12.5 mg I. M. was administered by Abraham Terrazas RN; for nausea; Verbal order read back and verified. 11:49:13 Is the patient allergic to Iodine/contrast media? No. 11:49:20 Was the patient premedicated? Yes 11:49:21 Is patient on blood thinner?No 11:49:22 Patient diabetic? No. 11:49:26 Previous problem with sedation/anesthesia? No ? 11:50:00 Previous problem with sedation/anesthesia? No ? 11:50:01 Snore? Yes 11:50:02 Sleep apnea? No 11:50:03 Deviated septum? No 11:50:04 Opens mouth fully? Yes 11:50:05 Sticks out tongue? Yes 11:50:06 Airway obstruction? No ? 11:50:09 Dentures? No ? 11:50:13 Pre procedure: right dorsailis pedis pulse 2+ Normal; easily identifiable; not easily obliterated 11:50:15 Pre procedure: left dorsailis pedis pulse 2+ Normal; easily identifiable; not easily obliterated 11:50:20 Patient pain scale 0/10 ?. 11:50:27 IV patent on arrival in right forearm with 0.9% NaCl at O. 11:50:30 Lab results completed and on chart. 11:50:36 Right groin area was prepped with chlora-prep and draped in sterile fashion 11:50:37 Alarms reviewed by R. N. 11:50:37 Sharps counted by scrub and verified by R.N. 11:50:43 Physician arrived 11:50:43 --------ALL STOP TIME OUT------ 11:50:44 Final Timeout: patient, procedure, and site verified with staff and physician. All members of the team are in agreement. 11:50:46 Right groin site verified by team. 11:50:49 Fire Safety Assessment: A--An alcohol-based skin anteseptic being used preoperatively., C--Open oxygen or nitrous oxide is being used., D--An ESU, laser, or fiber-optic light is being used. 11:50:52 Physical assessment completed. ASA score P 2 - A patient with mild systemic disease as per Estrada Holman MD. 11:51:01 2) 60-89 Mildly reduced kidney function, and other findings (as for stage 1) point to kidney disease. 11:51:10 Sedation plan: IV Moderate Sedation Medication:Versed, Fentanyl 11:51:19 Versed 2 mg I.V. was administered by Abraham Terrazas RN; for sedation; Verbal order read back and verified. 11:51:27 Fentanyl 100 mcg I.V. was administered by Abraham Terrazas RN; for sedation; Verbal order read back and verified. 11:51:52 Maximum allowable contrast dose (3.7 X eGFR X 0.75)210 ml. 11:51:55 Procedure started. 11:51:57 Use device set Femoral Dx 11:51:58 ACIST Syringe (40350) opened to sterile field. 11:51:58 Bag Decanter (2002S) opened to sterile field. 11:51:58 Medline Cath Pack ([id number]) opened to sterile field. 11:52:00 ACIST Hand Control (54851) opened to sterile field. 11:52:00 ACIST Manifold (75503) opened to sterile field. 11:52:00 DIAGNOSTIC Multipack 5Fr catheter set ([id number]) opened to sterile field. 11:52:01 Tegaderm 4 x 4 (1626W) opened to sterile field. 11:52:02 SHEATH 5FR [place] (AFY915) opened to sterile field. 11:52:03 EMERALD Guide Wire (442-933) opened to sterile field. 11:52:09 Local anesthetic to right femoral artery with Lidocaine 2% by Estrada Holman MD.INITIAL ACCESS ONLY 11:52:16 A 5 Fr sheath was inserted into the Right Femoral artery 11:52:21 A MULTIPACK JL 4.0 5Fr catheter was advanced over the wire and used for Left Coronary Angiography. 11:52:23 LCA angiography performed. 11:52:25 Injector settings: Ml/sec: 3, Volume: 6, 11:53:30 Catheter removed. 11:53:36 A MULTIPACK 3DRC 5Fr catheter was advanced over the wire and used for Right Coronary Angiography. 11:53:39 RCA angiography performed. 11:53:42 Injector settings: Ml/sec: 3, Volume: 6, 11:54:17 Catheter removed. 11:54:21 A MULTIPACK Pigtail 5 Fr catheter was advanced over the wire and used for LV Angiography. 11:56:03 GUIDE 6FR XBLAD 3.5 catheter ([id number]) opened to sterile field. 11:56:05 INFLATOR Merit BasixCompak (QZ7705) opened to sterile field. 11:56:05 WHISPER 300cm guide wire ([id number]) opened to sterile field. 11:56:07 SHEATH 6FR [place] (GUZ583) opened to sterile field. 11:56:43 LV hemodynamics recorded. 11:56:45 LV gram done using KRUGER 11:56:54 EF : 55 % 11:56:56 Catheter removed. 11:56:57 Proceeding to intervention. 11:57:09 Sheath upsized to a 6 Fr Short. 11:57:21 ACC Pre-intervention MAGALI Flow is 3. 11:57:29 Pre PCI Site: [place] mLAD has 90% stenosis. 11:57:36 6 Fr xblad 3.5 guide catheter was inserted over the wire 11:57:53 whisper wire advanced. 12:00:06 Heparin Bolus 5000 units I.V. was administered by Abraham Terrazas RN; for anticoagulation; Verbal order read back and verified. 12:00:27 Integrilin (Bolus 2mg/ml) 5.6 ml I.V. was administered by Abraham Terrazas RN; for antiplatelet therapy; Verbal order read back and verified. 12:00:41 Integrilin (Bolus 2mg/ml) 4.4 ml wasted was administered by Abraham Terrazas RN; to sharp's; Verbal order read back and verified. 12:01:58 Wire advanced across lesion. 12:03:23 Inflate balloon Inflation number: 1 A EMERGE OTW 2.5 x 20 balloon ([id number]) was prepped and advanced across the Mid LAD 90, then inflated to 12 GUY for 0:30 (min:sec) . 12:03:59 Balloon removed over the wire. 12:07:51 Place stent Inflation Number: 2 A ELLEN RX 3.0 x 12 stent ([id number]) was prepped and advanced across the Mid LAD 90. The stent was deployed at 12 GUY for 0:30 (min:sec) 0. 12:08:15 Stent catheter was removed intact over wire. 12:08:15 Wire removed. 12:08:16 Guide catheter removed. 12:08:28 EXOSEAL 6Fr (EX600) opened to sterile field. 12:08:48 Sheath removed intact; hemostasis achieved with Exoseal to the Right Femoral artery. 12:08:50 Procedure ended.(Physican Out) 12:09:06 Fluoroscopy time 05.00 minutes. 12:09:10 Fluoroscopy dose: 579 mGy 12:09:10 Flurop Dose total: 579 12:09:31 Dose Area Product 22281 mGy/cm. 12:09:36 Contrast amount:Isovue 300 120ml. 12:09:38 Maximum allowable dose exceeded? No. 12:09:41 Insertion/operative site no bleeding no hematoma. 12:09:44 Post-op/insertion site Right Femoral artery dressed using a 4 x 4 and Tegaderm. 12:09:45 Post Procedure Pulses reassessed and unchanged 12:09:48 Post procedure rhythm: unchanged. 12:10:07 Estimated blood loss: 5 ml 12:10:09 Post procedure instruction explained to patient.Patient verbalizes understanding. 12:10:10 Patient needs reinforcement of post procedure teaching. 12:10:32 Procedure type changed to Cath procedure, Diagnostic procedure, [facility], [facility] w/Coronaries, Sedation Charges, Moderate Sedation up to 15 minutes, PCI procedure, Coronary Stent, Coronary Stent Initial, Hemochron ACT Test 12:10:33 Procedure and supply charges have been captured, reviewed, submitted and are correct. 12:10:37 Procedure Complication : No complications 12:10:43 [facility] Findings: MVD- PCI performed (see procedure note) 12:10:44 Operative report dictated upon procedure completion. 12:10:45 See physician's report for complete and final results. 12:11:00 Report given to [facility]. 12:11:05 Patient transfered to [facility] with Stretcher. 12:11:08 Procedure ended. 12:11:08 Full Disclosure recording stopped 12:12:03 ACC-PCI Only Patient was given prescriptions, or instructed by Estrada Holman MD to start/continue the following medications upon discharge: Plavix 12:12:05 End room use (Document Last) 12:13:08 Plavix 600 mg P.O. was administered by Abraham Terrazas RN; for antiplatelet therapy; Verbal order read back and verified. 12:14:30 ACT drawn and resulted at 310 seconds. (normal therapeutic range 180-240 seconds). 12:14:44 End room use (Document Last) 12:16:35 End room use (Document Last) 12:17:21 Vital chart was stopped Intervention Summary Intervention Notes Time ActionType Lesion and Equipment Used Action# Pressure Duration Attributes 12:03:23 Inflate Mid LAD EMERGE OTW 2.5 1 12 00:30 balloon x 20 balloon ([id number]) 12:07:51 Place stent Mid LAD ELLEN RX 3.0 x 2 12 00:30 12 stent ([id number]) Device Usage Item Name Manufacture Quantity Catalog Number Hospital Part Current Minimal Lot# / Charge Number Stock Stock Serial# Code ACIST Syringe Acist 1 95913 [id number] 154325 068442 20 (46573) Medical Systems Inc Bag Decanter Microtek 1 2001S 047973 01648 177791 5 (2002S) Medical Inc. Medline Cath Medline 1 [id number] 381567 79270 218904 5 Pack ([id number]) ACIST Hand Acist 1 40048 990321 649382 306977 5 Control Medical (71257) Systems Inc ACIST Manifold Acist 1 61707 626256 745084 961619 5 (22062) Medical Systems Inc DIAGNOSTIC Cardinal 1 [id number] 343302 06114 241990 30 Multipack 5Fr Health catheter set (OB3264) Tegaderm 4 x 4 3M 1 1626W 409106 778850 425262 5 (1626W) SHEATH 5FR Terumo 1 VNR199 644066 855054 803524 5 [place] (BJH962) EMERALD Guide Cardinal 1 502-455 361091 274801 455677 5 Wire (502-455) Health MULTIPACK JL Cardinal 1 310039 5 4.0 5Fr Health catheter MULTIPACK 3DRC Cardinal 1 247274 5 5Fr catheter Health MULTIPACK Cardinal 1 535333 5 Pigtail 5 Fr Health catheter GUIDE 6FR Cardinal 1 [id number] 096136 207239 281092 10 XBLAD 3.5 Health catheter ([id number]) INFLATOR Merit Merit 1 RY6439 499549 269846 835645 15 BasixComidk Medical (UT4729) WHISPER 300cm [place] 1 [id number] 433058 753989 825214 5 guide wire Vascular ([id number]) SHEATH 6FR Terumo 1 DDC640 040489 830306 048178 40 [place] (FWQ349) EMERGE OTW 2.5 [place] 1 [id number] 852730 278037 098139 5 [id number] x 20 balloon Scientific ([id number]) ELLEN RX 3.0 x Medtronic 1 [id number] 648889 3532930 701179 5 [id number] 12 stent ([id number]) EXOSEAL 6Fr Cardinal 1 EX600 801517 785659 046887 10 (EX600) Health Signature Audit [place] Stage Time Signature Unsigned Intra-Procedure 08/19/2019 Lindsay Thomason 12:14:45 PM RT(R) Intra-Procedure 08/19/2019 Abraham 12:16:35 PM Mk VAZQUEZ Intra-Procedure 08/19/2019 Estrada [place] 12:17:19 PM Dav[place] [facility] [address] [place] [address]
--- NOTE | ~2019-08-19 | HEMODYNAMI ---
PATIENT:MEHUL STRINGER MEDICAL RECORD: [id number] : 54 LOCATION:[facility] D.2121 ADMISSION DATE: 08/19/19 Generatedon:08/21/20199:16 Patient name: MEHUL STRINGER Patient #: [id number] SSN: [id number] : 1950 Date of study: 08/21/2019 Page: Of Hemodynamic Procedure Report Patient Data Patient Demographics Procedure consent was obtained First Name: MEHUL Gender: Female Last Name: SIOMARA : 1950 [facility] Initial: C Age: 69 year(s) Patient #: [id number] Race: SSN: [id number] Additional ID: [id number] Contact details Address: [address] [place] [address] [id number] State: [place] City: [place] Zip code: [address] Past Medical History Allergies Allergen Reaction Date Comments Reported Other allergy 04/26/2017 codeine Other allergy 04/27/2017 codeine Other allergy 05/24/2017 codeine Other allergy 08/21/2019 STATINS, CODEINE Admission Admission Data Admission Date: 08/19/2019 Admission Time: 18:19 Arrival Date: 08/21/2019 Arrival Time: 0:00 Admit Source: Other Insurance Payor: Medicare Room #: D.2121 [facility] #: [id number] Height (in.): 66.14 BSA: 1.69 (m2) Height (cm.): 168 BMI: 21.61 (kg/m2) Weight (lbs.): 134.48 Weight (kg.): 61 Lab Results Lab Result Date: 08/21/2019 Lab Result Time: 0:00 Biochemistry Name Units Result Min Max BUN mg/dl 11 --(-*--)-- 7 18 Creatinine mg/dl 0.6 --(*---)-- 0.6 1.3 CBC Name Units Result Min Max Hematocrit % 36.8 *-(----)-- 42 54 Hemoglobin g/dl 12.2 *-(----)-- 13.5 17.5 Procedure Procedure Types Cath Procedure Diagnostic Procedure Sedation Charges Moderate Sedation up to 15 minutes PCI Procedure Coronary Stent Coronary Stent Initial Hemochron ACT Test Procedure Description Procedure Date Procedure Date: 08/21/2019 Procedure Start Time: 8:49 Procedure End Time: 9:12 Procedure Staff Name Function Estrada Holman MD Performing Physician Darling Robles RN Nurse Barbra Potts RT Air Deodorizer Servicer Leda Mujica RT Scrub Abraham Terrazas RN Nurse Miguelina Metcalf RT Monitor Procedure Data Cath Procedure Fluoroscopy Diagnostic fluoroscopy Total fluoroscopy Time: 6.8 time: 6.8 min min Diagnostic fluoroscopy Total fluoroscopy dose: 525 dose: 525 mGy mGy Contrast Material Contrast Material Type Amount (ml) Isovue 300 92 Entry Location Entry Primary Successful Side Size Upsize Upsize Entry Closure Succes sful Closure Location (Fr) 1 (Fr) 2 (Fr) Remarks Device Remarks Femoral Left 6 Fr Exoseal artery Short Estimated blood loss: 10 ml Procedure Complications No complications Procedure Medications Medication Administration Route Dosage 0.9% NaCl I.V. 100 ml/hr Oxygen etCO2 Nasal cannula 2 l/min Heparin Flush Bag added to field 2 bags (1000units/500ml NS) Lidocaine 2% added to field 20 Phenergan I.M. 12.5 mg Zofran I.V. 4 mg Versed I.V. 2 mg Fentanyl I.V. 100 mcg Versed I.V. 1 mg Heparin Bolus I.V. 5000 units Hemodynamics Rest BSA: 1.69 (m2) HGB: 12.2 (g/dl) O2 Consumption: Estimated: 162.47 (ml/min) O2 Co nsumption indexed: Estimated:96.14 (ml/min/m) Heart Rate: 79 (bpm) Snapshots Pre Cath Intra NCS Post Cath Vital Signs Time Heart Resp SPO2 etCO2 NIBP (mmHg) Rhythm Pain Sedation Rate (ipm) (%) (mmHg) Status Level (bpm) 8:31:56 78 19 100 0 166/86(122) NSR 0 (11) 10(A) , No pain 8:37:05 69 14 100 29.3 149/78(100) NSR 0 (11) 10(A) , No pain 8:41:25 64 14 99 33.1 146/75(111) NSR 0 (11) 10(A) , No pain 8:45:49 62 12 97 15.8 141/66(108) NSR 0 (11) 10(A) , No pain 8:50:08 66 12 94 38.4 145/77(113) NSR 0 (11) 10(A) , No pain 8:54:26 77 19 83 0 131/67(100) NSR 0 (11) 9(A) , No pain 8:58:46 76 14 94 39.9 128/62(94) NSR 0 (11) 9(A) , No pain 9:03:04 70 11 94 36.1 129/65(99) NSR 0 (11) 9(A) , No pain 9:07:19 76 17 95 38.4 129/65(97) NSR 0 (11) 10(A) , No pain 9:11:34 76 15 97 15.8 129/70(103) NSR 0 (11) 10(A) , No pain Medications Time Medication Route Dose Verified Delivered Reason Notes Effectiveness by by 8:37:56 0.9% NaCl I.V. 100 Abraham Abraham Per physician ml/hr Mk Terrazas RN RN 8:38:07 Oxygen etCO2 2 Abraham Abraham for low 02 sats Nasal l/min Mk Terrazas cannula RN RN 8:38:20 Heparin Flush added 2 Abraham Abraham used for Bag to bags Mk Terrazas procedure (1000units/500ml field VAZQUEZ RN NS) 8:38:30 Lidocaine 2% added 20ml Abraham Abraham for local to vial Mk Terrazas anesthetic field VAZQUEZ RN 8:38:58 Phenergan I.M. 12.5 Abraham Abraham for nausea mg Mk Terrazas RN RN 8:39:17 Zofran I.V. 4 mg Abraham Abraham for nausea Mk Terrazas RN RN 8:50:32 Versed I.V. 2 mg Abraham Abraham for sedation Mk Terrazas RN RN 8:50:40 Fentanyl I.V. 100 Abraham Abraham for sedation mcg Mk Terrazas RN RN 8:53:09 Versed I.V. 1 mg Abraham Abraham for sedation Mk Terrazas RN RN 8:53:28 Heparin Bolus I.V. 5000 Abraham Abraham for units Mk Terrazas anticoagulation RN informatics physician Log Time Note 8:07:27 Informed consent obtained and on chart 8:08:32 Procedure Status Urgent Heart Cath (IP), PCI. 8:08:33 Time tracking: Regular hours (M-F 7:00 - 5:00) 8:08:38 Plan of Care:Hemodynamics will remain stable., Cardiac rhythm will remain stable., Comfort level will be maintained., Respiratory function will remain adequate., Patient/ family verbilizes understanding of procedure., Procedure tolerated without complication., Recovers from procedure without complications.. 8:08:47 H&P Date Dictated: 08/20/2019 Within 30 days and on chart.. 8:09:58 Patient allergic to Other allergySTATINS, CODEINE 8:15:03 Barbra Potts RT(R) sent for patient. Start room use. 8:24:36 Admit Source: Other 8:24:42 Patient received from Med II to CCL 1 Alert and oriented. Tansferred to table in Supine position. 8:24:43 Warm blankets applied, and phong hugger turned on for patient comfort. 8:24:43 Correct patient and procedure confirmed by team. 8:24:44 ECG and BP/O2 sat monitors applied to patient. 8:28:21 Arrival Date: 08/21/2019 12:00:00 AM 8:28:56 Patient Height : 66.14 inches 8:29:03 Patient Weight : 134.48 lbs 8:29:11 Insurance Payor : Medicare 8:30:39 Vital chart was started 8:30:41 Baseline sample Acquired. 8:30:51 Rhythm: sinus rhythm 8:30:54 Pre-procedure instructions explained to patient. 8:30:55 Pre-op teaching completed and patient verbalized understanding. 8:31:49 Family unavailable. 8:31:58 Patient NPO since Midnight. 8:32:01 Is the patient allergic to Iodine/contrast media? No. 8:32:04 Was the patient premedicated? Yes 8:32:07 Is patient on blood thinner?Yes 8:32:21 ACC The patient was administered the following blood thiners within the last 24 hours: ACCPlavix 8:32:36 Patient diabetic? No. 8:32:39 ----Pre-sedation anethsthesia assessment.---- 8:32:43 Previous problem with sedation/anesthesia? No ? 8:32:48 Snore? Yes 8:32:52 Sleep apnea? No 8:32:56 Deviated septum? No 8:32:59 Opens mouth fully? Yes 8:33:02 Sticks out tongue? Yes 8:33:09 Airway obstruction? No ? 8:33:14 Dentures? No ? 8:33:15 8:33:35 IV patent on arrival in right hand with 0.9% NaCl at [facility]. 8:34:31 Lab Result : BUN 11 mg/dl 8:34:31 Lab Result : Creatinine 0.6 mg/dl 8:34:31 Lab Result : Hemoglobin 12.2 g/dl 8:34:31 Lab Result : Hematocrit 36.8 % 8:34:38 Lab results completed and on chart. 8:34:43 Stress Test: no; N/A ? 8:34:48 Left groin area was prepped with chlora-prep and draped in sterile fashion 8:34:50 Alarms reviewed by R. N. 8:34:51 Sharps counted by scrub and verified by R.N. 8:35:03 Use device set Femoral Dx 8:35:04 ACIST Syringe (51287) opened to sterile field. 8:35:05 Bag Decanter () opened to sterile field. 8:35:06 Medline Cath Pack ([id number]) opened to sterile field. 8:35:09 ACIST Hand Control (53844) opened to sterile field. 8:35:10 ACIST Manifold (33260) opened to sterile field. 8:35:12 Tegaderm 4 x 4 (1626W) opened to sterile field. 8:35:14 EMERALD Guide Wire (206-837) opened to sterile field. 8:35:37 SHEATH 6FR Dexter (BZU052) opened to sterile field. 8:35:48 INFLATOR Merit BasixCompak (MV2384) opened to sterile field. 8:36:15 WHISPER 300cm guide wire ([id number]) opened to sterile field. 8:37:56 0.9% NaCl 100 ml/hr I.V. was administered by Abraham Terrazas RN; Per physician; Verbal order read back and verified. 8:38:07 Oxygen 2 l/min etCO2 Nasal cannula was administered by Abraham Terrazas RN; for low 02 sats; Verbal order read back and verified. 8:38:20 Heparin Flush Bag (1000units/500ml NS) 2 bags added to field was administered by Abraham Terrazas RN; used for procedure; Verbal order read back and verified. 8:38:30 Lidocaine 2% 20ml vial added to field was administered by Abraham Terrazas RN; for local anesthetic; Verbal order read back and verified. 8:38:58 Phenergan 12.5 mg I.M. was administered by Abraham Terrazas RN; for nausea; Verbal order read back and verified. 8:39:17 Zofran 4 mg I.V. was administered by Abraham Terrazas RN; for nausea; Verbal order read back and verified. 8:40:30 Risk of Mortality: 0.2 8:40:35 Risk of blood transfusion: 1.8 8:40:39 Risk of NICKY: 1.6 8:44:33 GUIDE 6FR HS I SH catheter ([id number]) opened to sterile field. 8:45:08 Physician arrived 8:45:10 --------ALL STOP TIME OUT------ 8:45:12 Final Timeout: patient, procedure, and site verified with staff and physician. All members of the team are in agreement. 8:45:16 Left groin site verified by team. 8:45:23 Fire Safety Assessment: A--An alcohol-based skin anteseptic being used preoperatively., C--Open oxygen or nitrous oxide is being used., D--An ESU, laser, or fiber-optic light is being used. 8:45:31 Physical assessment completed. ASA score P 2 - A patient with mild systemic disease as per Estrada Holman MD. 8:45:39 1) 90+ Normal kidney functon but urine findings or structural abnormalities or genetic trait point to kidney disease. 8:45:49 Maximum allowable contrast dose (3.7 X eGFR X 0.75)250 ml. 8:45:56 Sedation plan: IV Moderate Sedation Medication:Versed, Fentanyl 8:46:45 Zero performed for pressure channel P1 8:49:34 Procedure started. 8:49:34 Full Disclosure recording started 8:49:49 Local anesthetic to left femerol artery with Lidocaine 2% by Estrada Holman MD.INITIAL ACCESS ONLY 8:50:32 Versed 2 mg I.V. was administered by Abraham Terrazas RN; for sedation; Verbal order read back and verified. 8:50:40 Fentanyl 100 mcg I.V. was administered by Abraham Terrazas RN; for sedation; Verbal order read back and verified. 8:50:46 A 6 Fr Short sheath was inserted into the Left Femoral artery 8:51:31 6 Fr HS1 SH guide catheter was inserted over the wire 8:51:56 ACC Pre-intervention MAGALI Flow is 3. 8:53:09 Versed 1 mg I.V. was administered by Abraham Terrazas RN; for sedation; Verbal order read back and verified. 8:53:28 Heparin Bolus 5000 units I.V. was administered by Abraham Terrazas RN; for anticoagulation; Verbal order read back and verified. 8:53:54 Injector settings: Ml/sec: 3, Volume: 6, IN THE RCA. 8:54:30 Pre PCI Site: [place] pRCA has 80% stenosis. 8:54:41 WHISPER 300 wire advanced. 8:54:44 Wire advanced across lesion. 8:58:49 The ELLEN RX 3.0 x 12 stent ([id number]) was advanced then removed because of failure to cross lesion 9:01:26 Place stent Inflation Number: 1 A ELLEN RX 3.0 x 12 stent ([id number]) was prepped and advanced across the Prox RCA1 . The stent was deployed at 16 GUY for 0:00 (min:sec) . 9:02:35 Stent catheter was removed intact over wire. 9:04:59 Inflate balloon Inflation number: 2 A NC EUPHORA 3.5 x 8 balloon ([id number]) was prepped and advanced across the Prox RCA1 , then inflated to 10 GUY for 0:37 (min:sec) . 9:05:56 Inflation number: 3 The NC EUPHORA 3.5 x 8 balloon ([id number]) was reinflated across the Prox RCA1 , to 14 GUY for 0:15 (min:sec) . 9:06:31 Post PCI Site: [place] pRCA has 0% stenosis. 9:06:40 ACC Post-intervention MAGALI Flow is 3. 9:06:42 Balloon removed over the wire. 9:06:49 Wire removed. 9:06:51 Guide catheter removed. 9:07:12 EXOSEAL 6Fr (EX600) opened to sterile field. 9:07:35 Sheath removed intact; hemostasis achieved with Exoseal to the Left Femoral artery. 9:07:49 Procedure ended.(Physican Out) 9:07:57 Contrast amount:Isovue 300 92ml. 9:08:01 Maximum allowable dose exceeded? No. 9:08:14 Fluoroscopy time 06.80 minutes. 9:08:21 Flurop Dose total: 525 9:08:21 Fluoroscopy dose: 525 mGy 9:08:32 Dose Area Product 12705 mGy/cm. 9:08:34 Sharps counted by scrub and verified by R.N. 9:08:38 Insertion/operative site no bleeding no hematoma. 9:08:45 Post-op/insertion site Left Femoral artery dressed using a 4 x 4 and Tegaderm. 9:08:53 Post left femerol artery:stable 9:09:02 Post-procedure physical assessment completed. ASA score P 2 - A patient with mild systemic disease as per Estrada Holman MD. 9:09:07 Post procedure rhythm: unchanged. 9:09:11 Estimated blood loss: 10 ml 9:09:13 Post procedure instruction explained to patient.Patient verbalizes understanding. 9:09:15 Patient needs reinforcement of post procedure teaching. 9:10:03 Procedure type changed to Cath procedure, Diagnostic procedure, Sedation Charges, Moderate Sedation up to 15 minutes, PCI procedure, Coronary Stent, Coronary Stent Initial, Hemochron ACT Test 9::43 Procedure and supply charges have been captured, reviewed, submitted and are correct. 9:11:30 Procedure Complication : No complications 9:11:34 Vital chart was stopped 9:11:38 [facility] Findings: MVD- PCI performed (see procedure note) 9:11:43 Operative report dictated upon procedure completion. 9:11:45 See physician's report for complete and final results. 9:11:49 Report given to [facility]. 9:11:57 Patient transfered to [facility] with Bed. 9:12:00 Procedure ended. 9:12:00 Full Disclosure recording stopped 9:12:49 ACT drawn and resulted at 249 seconds. (normal therapeutic range 180-240 seconds). 9:14:30 ACC-PCI Only Patient was given prescriptions, or instructed by Estrada Holman MD to start/continue the following medications upon discharge: Plavix 9:14:31 End room use (Document Last) Intervention Summary Intervention Notes Time ActionType Lesion and Equipment Used Action# Pressure Duration Attributes 8:58:49 Discard ELLEN RX 3.0 x Stent 12 stent ([id number]) 9:01:26 Place stent Prox RCA1 ELLEN RX 3.0 x 1 16 00:00 12 stent ([id number]) 9:04:59 Inflate Prox RCA1 NC EUPHORA 3.5 2 10 00:37 balloon x 8 balloon ([id number]) 9:05:56 Reinflate Prox RCA1 NC EUPHORA 3.5 3 14 00:15 balloon x 8 balloon ([id number]) Device Usage Item Name Manufacture Quantity Catalog Hospital Part [facility] Lot# / Number Charge Number Stock Stock Serial# Code ACIST Syringe Acist 1 93223 [id number] 522317 040966 20 (97883) Medical Systems Inc Bag Decanter Microtek 1 2001S 294884 80311 242344 5 () Medical Inc. Medline Cath Medline 1 [id number] 272874 30627 459615 5 Pack ([id number]) ACIST Hand Acist 1 66898 062087 872189 360033 5 Control Medical (33982) Systems Inc ACIST Manifold Acist 1 79035 490316 276661 348971 5 (30467) Medical Systems Inc Tegaderm 4 x 4 3M 1 1626W 444191 871358 960200 5 (1626W) EMERALD Guide Cardinal 1 502-455 731894 934338 732817 5 Wire (502-557) Health SHEATH 6FR Terumo 1 OBC232 844741 398999 510581 40 Dexter (ZEA833) INFLATOR Merit Merit 1 QC3875 869561 590962 138766 15 [facility] (GQ2668) WHISPER 300cm [place] 1 [id number] 158498 203889 975319 5 guide wire Vascular ([id number]) GUIDE 6FR HS I Medtronic 1 [id number] 157663 62198 354715 1 SH catheter ([id number]) ELLEN RX 3.0 x Medtronic 1 [id number] 808691 7829432 600810 5 [id number] 12 stent ([id number]) NC EUPHORA 3.5 Medtronic 1 [id number] 057000 301516 338966 1 [id number] x 8 balloon ([id number]) EXOSEAL 6Fr Cardinal 1 EX600 330736 629704 970003 10 (EX600) Health Signature Audit [place] Stage Time Signature Unsigned Intra-Procedure 08/21/2019 Miguelina 9:15:05 AM Tea RT(R) (CV) Intra-Procedure 08/21/2019 Abraham 9:15:34 AM Mk VAZQUEZ Intra-Procedure 08/21/2019 Estrada [place] 9:16:05 AM Davion [facility] [address] [place] [address]
[2019-08-19] MEDS ORDERED: TRILEPTAL300 MG PO (04:50)
[2019-08-19] MEDS ORDERED: ISOSORBIDE MONO30 M1 PO (04:51)
[2019-08-19] MEDS ORDERED: AVAPRO300 MG PO (04:51)
[2019-08-19] MEDS ORDERED: PEPCID40 MG PO (04:51)
[2019-08-19] MEDS ORDERED: REPATHA SY140 MG/1 M SC (04:52)
[2019-08-19] MEDS ORDERED: CARDURA2 MG PO (04:52)
[2019-08-19] MEDS ORDERED: COREG25 MG PO (04:53)
[2019-08-19] MEDS ORDERED: CATAPRES0.2 MG PO (04:53)
[2019-08-19] MEDS ORDERED: PROLIA INJ 660 MG/M1 SC (04:53)
[2019-08-19 05:54] LABS: CKMB 1.1 U/L (0.0-3.6); CREATINE KINASE 126 UL (21-215)
[2019-08-19 05:55] LABS: TROPONIN-I < 0.017 ng/mL (0.000-0.060)
--- NOTE | 2019-08-19 07:10 | NUR ---
NEW PATIENT ADMIT FROM TRANSFER IBARRA. PATIENT IS AWAKE, ALERT AND ORIENTED X 4. PATIENT VSS AND PATIENT DENIES ANY NEEDS OR PAIN. PATIENT HISTORY AND ASSESSMENT COMPLETED. WILL CONITINUE WITH PLAN OF CARE. SR UP X 2 BED IN LOW POSITION AND CALL LIGHT IN REACH.
[2019-08-19 09:39] LABS: BASOPHILS 0.2 % (0-2); EOSINOPHILS 0.6 % (0-7); HEMATOCRIT 39.4 % (36.0-48.0); HEMOGLOBIN 13.3 g/dL (12-16); LYMPHOCYTES 38.8 % (15-50); MCH 31.5 pg (26.0-34.0); MCHC 33.8 g/dL (31.0-37.0); MCV 93.4 fL (80.0-100.0); MEAN PLATELET VOLUME 9.9 fL (7.4-10.4); MONOCYTES 10.7 % (2-11); NEUTROPHILS 49.7 % (40-80); PLATELET COUNT 259 10x3/uL (130-400); RBC 4.22 10x6/uL (4.00-5.40); RDW 12.1 % (11.5-14.5); WBC 6.4 10x3/uL (4.8-10.8)
[2019-08-19 10:02] LABS: ALT (SGPT) 20 U/L (10-68); CALC OSMOLALITY 270 mosm/kg (275-300); CALCIUM 8.9 mg/dL (8.5-10.1); CHLORIDE - SERUM 99 mmol/L (98-107); CHOL - HDL RATIO 3.1 ratio (2.3-4.1); CHOLESTEROL, TOTAL 332 mg/dL (0-200); CREATININE - SERUM 0.8 mg/dL (0.6-1.3); GLUCOSE 124 mg/dL (74-106); HDL CHOLESTEROL 109 mg/dL (32-96); LDL CHOLESTEROL 212 mg/dL (0-100); LDL-HDL RATIO 1.9 ratio (1.5-3.5); POTASSIUM - SERUM 4.1 mmol/L (3.5-5.1); SODIUM 135 mmol/L (136-145); TRIGLYCERIDE 57 mg/dL (30-200); UREA NITROGEN 13 mg/dL (7-18); eGFR NON AFRICAN AMERICAN 76 mL/min (90-120)
--- NOTE | 2019-08-19 10:30 | NUR ---
PATIENT IS STABLE AND VSS. PATIENT TO HAND MOLD MAKER VIA HOSPITAL BED ACCOMPANIED BY HAND MOLD MAKER TEAM.
--- NOTE | 2019-08-19 12:00 | NUR ---
PATIENT RETURNED TO ROOM VIA HOSPITAL BED ACCOMPANIED BY VISUAL DISPLAY MANAGER TEAM. RT INDERJIT MENDOZA C/D/I. VSS. FREQUENT VITALS IN PLACE. PERIPHERAL PULSES PAL. PATIENT DENIES ANY NEEDS OR PAIN. WILL CONTINUE TO MONITOR. BED IN LOW POSITION AND CALL LIGHT IN REACH.
--- NOTE | 2019-08-19 14:44 | NUR ---
PATIENT RESTING QUIETLY WITH EYES CLOSED AND BREATHING EVENLY. VSS. RT GROIN DRSG C/D/I. PERIPHERAL PULSES INTACT. WILL CONTINUE TO MONITOR. BED IN LOW POSITION AND CALL LIGHT IN REACH.
--- NOTE | 2019-08-19 17:30 | NUR ---
PATIENT LAYING IN BED ON BACK AWAKE AND TALKING ON THE PHONE. PATIENT STATES THAT HER CHEST IS ACHING AT A NUMBER 5. VSS. NO SOB , NUMBNESS, JAW PAIN OR NAUSEA. APPLIED NITRO BID OINTMENT TO RT CHEST WALL AND MEDICATED WITH SCHEDULED PROTONIX IV. WILL CONTINUE TO MONITOR. SR UP X 2 BED IN LOW POSITION AND CALL LIGHT IN REACH.
--- NOTE | 2019-08-19 18:23 | NUR ---
PATIENT LAYING IN BED WATCHING TV. PATIENT STATES SHE FEEL MUCH BETTER. VSS. RT INDERJIT LOMASG C/D/I. WILL CONTINUE TO [facility]. SR UPX 2 BED IN LOW POSITION AND CALL LIGHT IN REACH.
--- NOTE | 2019-08-19 19:20 | NUR ---
RECEIVED REPORT,WILL ASSUME CARE OF PT, WATCHING TV, DENIES ANY NEEDS AT THIS TIME, BED IS LOW, SRX2, CALL LIGHT IN REACH, WILL CONTINUE PLAN OF CARE
[2019-08-20] VITALS (8 sets, daily range): BP systolic 86–126; BP diastolic 51–70
--- NOTE | 2019-08-20 05:36 | NUR ---
I have reviewed this patient and I concur with the Shift Assessment completed by the Licensed Practical Nurse today this shift.
[2019-08-20 06:05] LABS: BASOPHILS 0.2 % (0-2); EOSINOPHILS 0.7 % (0-7); HEMATOCRIT 34.9 % (36.0-48.0); HEMOGLOBIN 11.6 g/dL (12-16); IMMATURE GRANULOCYTES 0.2 % (0-5); LYMPHOCYTES 26.9 % (15-50); MCH 31.5 pg (26.0-34.0); MCHC 33.2 g/dL (31.0-37.0); MCV 94.8 fL (80.0-100.0); MEAN PLATELET VOLUME 9.2 fL (7.4-10.4); MONOCYTES 12.9 % (2-11); NEUTROPHILS 59.1 % (40-80); PLATELET COUNT 221 10x3/uL (130-400); RBC 3.68 10x6/uL (4.00-5.40); RDW 12.4 % (11.5-14.5); WBC 6.1 10x3/uL (4.8-10.8)
[2019-08-20 06:35] LABS: ALKALINE PHOSPHATASE 82 U/L (30-120); BILIRUBIN - TOTAL 0.19 mg/dL (0.2-1.3); CALC OSMOLALITY 263 mosm/kg (275-300); CALCIUM 7.5 mg/dL (8.5-10.1); CARBON DIOXIDE 24.3 mmol/L (21.0-32.0); CHLORIDE - SERUM 101 mmol/L (98-107); CREATININE - SERUM 0.6 mg/dL (0.6-1.3); GLUCOSE 84 mg/dL (74-106); MAGNESIUM - SERUM 2.2 mg/dL (1.8-2.4); POTASSIUM - SERUM 3.9 mmol/L (3.5-5.1); PROTEIN - SERUM 6.1 g/dL (6.4-8.2); SODIUM 133 mmol/L (136-145); UREA NITROGEN 11 mg/dL (7-18); eGFR NON AFRICAN AMERICAN > 90 mL/min (90-120)
[2019-08-20 06:36] LABS: ALT (SGPT) 13 U/L (10-68)
--- NOTE | 2019-08-20 09:11 | NUR ---
PT SITTING UP IN BED A/O X4. NO S/S OF DISTRESS. VSS. BED LOW CALL LIGHT WITHIN REACH. WILL CONTINUE TO MONITOR.
--- NOTE | 2019-08-20 10:51 | NUR ---
I have reviewed this patient and I concur with the Shift Assessment completed by the Licensed Practical Nurse today this shift.
[2019-08-20 10:54] LABS: LDL-HDL RATIO 1.8 ratio (1.5-3.5)
--- NOTE | 2019-08-20 19:27 | NUR ---
RECEIVED REPORT, WILL ASSUME CARE OF PT, DENIES ANY NEEDS AT THIS TIME, BED IS LOW, SRX2, CALL LIGHT IN REACH, WILL CONTINUE PLAN OF CARE
[2019-08-21] VITALS: BP 111/53
--- NOTE | 2019-08-21 02:38 | NUR ---
I have reviewed this patient and I concur with the Shift Assessment completed by the Licensed Practical Nurse today this shift.
[2019-08-21 04:00] VITALS: BP 138/61
[2019-08-21 06:17] LABS: BASOPHILS 0.2 % (0-2); EOSINOPHILS 1.3 % (0-7); HEMATOCRIT 36.8 % (36.0-48.0); HEMOGLOBIN 12.2 g/dL (12-16); IMMATURE GRANULOCYTES 0.2 % (0-5); LYMPHOCYTES 29.5 % (15-50); MCH 31.2 pg (26.0-34.0); MCHC 33.2 g/dL (31.0-37.0); MCV 94.1 fL (80.0-100.0); MEAN PLATELET VOLUME 9.3 fL (7.4-10.4); MONOCYTES 12.8 % (2-11); PLATELET COUNT 232 10x3/uL (130-400); RBC 3.91 10x6/uL (4.00-5.40); RDW 12.3 % (11.5-14.5)
[2019-08-21 06:30] LABS: ALBUMIN 3.2 g/dL (3.4-5.0); ALKALINE PHOSPHATASE 89 U/L (30-120); ALT (SGPT) 16 U/L (10-68); BILIRUBIN - TOTAL 0.22 mg/dL (0.2-1.3); CALC OSMOLALITY 268 mosm/kg (275-300); CALCIUM 7.8 mg/dL (8.5-10.1); CARBON DIOXIDE 24.2 mmol/L (21.0-32.0); CHLORIDE - SERUM 103 mmol/L (98-107); CREATININE - SERUM 0.6 mg/dL (0.6-1.3); GLUCOSE 92 mg/dL (74-106); MAGNESIUM - SERUM 2.3 mg/dL (1.8-2.4); PROTEIN - SERUM 6.7 g/dL (6.4-8.2); SODIUM 135 mmol/L (136-145); UREA NITROGEN 11 mg/dL (7-18); eGFR NON AFRICAN AMERICAN > 90 mL/min (90-120)
--- NOTE | 2019-08-21 07:30 | NUR ---
ASSESSMENT DONE. DENIES NEEDS
--- NOTE | 2019-08-21 08:20 | NUR ---
TO BOTTOM STOP ATTACHER PER BED
[2019-08-21 08:40] VITALS: BP 152/65
--- NOTE | 2019-08-21 09:30 | NUR ---
RETURN FROM ELECTRIC TAPE SLITTER. KELLY TO LT JANSEN C/D/I. PULSE PALP
--- NOTE | 2019-08-21 09:44 | NUR ---
I have reviewed this patient and I concur with the Shift Assessment completed by the Licensed Practical Nurse today this shift.
[2019-08-21] MEDS ORDERED: PLAVIX75 MG PO (11:14)
--- NOTE | 2019-08-21 12:16 | CN ---
PATIENT NAME:MEHUL STRINGER MEDICAL RECORD: [id number] : 54 LOCATION:[facility] D.2121 ADMIT DATE: 08/19/19 ACCOUNT: [id number] CONSULTING PHYSICIAN: GOPI TALLEY MD REFERRING PHYSICIAN: ENOC BOO MD DATE OF CONSULTATION: HISTORY OF PRESENT ILLNESS: A 69-year-old female with history of coronary artery disease, status post PTCA stenting. She has a history of bipolar disorder, hypertension, hyperlipidemia, statin intolerant, but on Repatha therapy. Has been having intermittent chest pain for the past week, admitted with rest symptomology to [facility], was transferred here for further evaluation. She recently had her carvedilol, beta blockade and with additional long-acting nitrates without improvement in her angina. We are asked to see her concerning her cardiovascular status. PAST MEDICAL HISTORY: Includes; 1. History of hypertension. 2. Hyperlipidemia. 3. Coronary artery disease, status post intervention. 4. Bipolar disorder. ALLERGIES: STATIN THERAPY, CODEINE. MEDICATIONS: Include Coreg 25 mg p.o. b.i.d., Cardura 2 mg p.o. every day, Repatha 140 mg bimonthly, Imdur 30 every day, Avapro 300 every day, nifedipine 90 every day, Ativan 0.5 at bedtime, aspirin 81 every day, Trileptal 300 b.i.d., famotidine 40 b.i.d., Prolia injection 60 mg. SOCIAL HISTORY: Nonsmoker, nondrinker. Easily takes care of her ADLs. No set exercise program. REVIEW OF SYSTEMS: The patient reports easy bruising but reports no swollen glands. The patient reports no fever, no night sweats, no significant weight gain, no significant weight loss. No significant exercise tolerance. The patient reports no dry eyes, no irritation, no vision change. Patient reports no difficulty hearing and no ear pain. Patient reports no frequent nose bleeds or nose and sinus problems. Patient reports on arm pain on exertion. No shortness of breath while lying down. No history of heart murmur. Patient reports no cough, no wheezing or coughing up blood. Patient reports no abdominal pain, no vomiting. Normal appetite. No diarrhea and not vomiting blood. No nausea and no constipation. Patient reports no incontinence. No difficulty urinating. No hematuria. No increased frequency. Patient reports no muscle aches. No weakness, no arthralgias, no back pain. No swelling of the extremities. Patient reports no abnormal mole, no jaundice, no rashes. Reports no loss of consciousness. No weakness and no numbness. No seizures, dizziness, or headaches. The patient reports no depression, no sleep disturbance, feeling safe in a relationship and no alcohol abuse. Patient reports on fatigue. Reports no runny nose or sinus pressure. No itching, no hives, and no frequent sneezing. PHYSICAL EXAMINATION: GENERAL: Pleasant female in no acute distress, appears stated age. VITAL SIGNS: Pulse 66, blood pressure 101/55. HEENT: Normocephalic, atraumatic. CONSULT REPORT [id number] MEHUL STRINGER NECK: No bruits noted. HEART: Regular, II/ systolic ejection murmur. LUNGS: Good air excursion. ABDOMEN: Soft, nontender. EXTREMITIES: Pulses 2+. No edema. NEUROLOGIC: Grossly intact. DIAGNOSTIC DATA: EKG shows nonspecific ST-T changes. IMPRESSION: Acute coronary syndrome, failed outpatient medical therapy. PLAN: For angiography, intervention based on the above. TRANSINT:[id number] Voice Confirmation ID: [id number] DOCUMENT ID: [id number] GOPI TALLEY MD at 1216 CC: [id number] DICTATION DATE: 08/19/19 0858 SERVICE SUPERVISOR: 08/19/19 1039 [place] [address]
--- NOTE | 2019-08-21 12:16 | OP ---
PATIENT NAME: MEHUL STRINGER MEDICAL RECORD: [id number] :54 LOCATION:D.M2 D.1 ADMISSION DATE:08/19/19 SURGEON: GOPI TALLEY MD DATE OF OPERATION: PROCEDURE: Left heart catheterization, selective coronary angiography, right femoral artery approach. CATHETERS: A 5-[place] sheath, 5/4 left and right Odilia, 5/4 pig. The procedure was well tolerated. The patient returned to the hansen, sheath removed. ExoSeal device placed. FINDINGS: Left ventriculography in 30-degree KRUGER view, normal wall motion, normal systolic function. CORONARY ANATOMY: LEFT MAIN: Left main is free of disease. LAD: Has a diffuse in-stent restenosis in its mid portion, 90% or better. CIRCUMFLEX: Free of disease. RIGHT CORONARY ARTERY: Has basically ostial stenosis of 80% with MAGALI flow 3 distally. IMPRESSION: Left anterior descending then right in a staged fashion. DESCRIPTION OF PROCEDURE: A 5-[place] sheath was exchanged for a 6-[place] sheath. XB LAD guiding catheter provided good catheter support followed by 300 cm Whisper wire, was placed across the tightly occluded LAD down this portion of vessel. Pre-deployment balloon was a 20 mm 2.5 balloon up to 10 atmospheres. This showed nice for resolution of restenosis. However, there was some haziness and probable dissection in the mid portion of the LAD and a 3.0 x 12 mm Macario drug-eluting stent up to 14 atmospheres for 45 seconds. Final angiography overall shows excellent resolution of diffuse in-stent restenosis of actual stenting of a small dissection. MAGALI flow improved from 0 to 3. Sheath closed with ExoSeal device. Plavix was loaded in the lab. We will plan intervention to the right. TRANSINT:[id number] Voice Confirmation ID: [id number] DOCUMENT ID: [id number] GOPI TALLEY MD at 1216 CC: [id number] DICTATION DATE: 08/19/19 1218 TUNG NUT GROWER: 08/19/19 1558 ADM IN [place] [id number] [place] [id number]
--- NOTE | 2019-08-21 12:16 | OP ---
PATIENT NAME: MEHUL STRINGER MEDICAL RECORD: [id number] :54 LOCATION:D.M2 D.1 ADMISSION DATE:08/19/19 SURGEON: GOPI TALLEY MD DATE OF OPERATION: 08/21/2019 ADDENDUM Please see previous report for angiography. DESCRIPTION OF PROCEDURE: After a 6-Cym[place]es sheath placed in left femoral artery, hockey stick guide catheter provided good guide catheter support followed by a 300 cm Whisper wire placed across the tightly re-stenosed right coronary down this portion of vessel. Stent deployed was a 3.0 x 12 [place] stent. We then postdilated with an 8 mm, 3.5 noncompliant balloon up to 16 atmospheres. Still mild wasting, but no significant residual. MAGALI flow was 3 throughout the procedure. Heparin was used during the case. Sheath was closed with ExoSeal device. The patient was previously on Plavix. TRANSINT:[id number] Voice Confirmation ID: [id number] DOCUMENT ID: [id number] GOPI TALLEY MD at 1216 CC: [id number] DICTATION DATE: 08/21/1915 MUSEUM GUIDE: 08/21/19 0934 ADM IN [facility] [address] [place] [address]
--- NOTE | 2019-08-21 13:56 | NUR ---
DC GIVEN TO PT
--- NOTE | 2019-08-21 15:01 | NUR ---
DC HOME PER PERSONAL CAR
--- NOTE | 2019-08-21 16:23 | MORECARE ---
CASE MANAGEMENT DISCHARGE SUMMARY PATIENT: MEHUL STRINGER UNIT: [id number] ADM DATE: 08/19/19 AGE: 69 : 52 SEX: F ROOM/BED: D.1692 AUTHOR: DESMOND BURROWS PHYSICIAN: REFERRING PHYSICIAN: ENOC BOO MD DATE OF SERVICE: 08/21/19 Discharge Plan Patient Name: MEHUL STRINGER [facility] [facility] 1950 Planned Disposition: Home Anticipated Discharge Date: 08/21/19 Discharge Date: 08/21/2019 Expected LOS: 2 Initial Reviewer: [email or web address] Initial Review Date: 08/21/2019 Generated: 08/21/19 5:23 pm DCPIA - Discharge Planning Initial Assessment Updated by [email or web address]: Farhad Kahn on 08/21/19 4:20 pm * Is the patient Alert and Oriented? Yes * How many steps to enter\exit or inside your home? NONE * PCP DR. WYNN IN [place] * Pharmacy [facility] * Preadmission Environment Home Alone * ADLs Independent * Equipment Shower Chair * Other Equipment [facility] - PREFERRED PROVIDER * List name and contact numbers for known caregivers / representatives who currently or will assist patient after discharge: SHAKIRA MESA, SON, ZACH ATKINS, SISTER, * Verbal permission to speak to the caregivers and representatives has been obtained from the patient. N/A * Community resources currently utilized None * Please name any agencies selected above. NONE * Additional services required to return to the preadmission environment? No * Can the patient safely return to the preadmission environment? Yes * Has this patient been hospitalized within the prior 30 days at any hospital? No Patient Name: MEHUL STRINGER Page [id number] at 1623 All edits/amendments must be made on the electronic document DICTATION DATE: 08/21/191622 SERVICE STATION OPERATOR: ADALID 08/21/19 1623 RPT#: [id number] DC DATE:08/21/19 STATUS: DIS IN [facility] [address] [place] [address] END OF REPORT
--- NOTE | 2019-08-21 16:33 | MORECARE ---
CASE MANAGEMENT DISCHARGE SUMMARY PATIENT: MEHUL STRINGER UNIT: [id number] ADM DATE: 08/19/19 AGE: 69 : 52 SEX: F ROOM/BED: D.6618 AUTHOR: MARKOS,DOC PHYSICIAN: REFERRING PHYSICIAN: ENOC BOO MD DATE OF SERVICE: 08/21/19 Discharge Plan Patient Name: MEHUL STRINGER Facility[facility]:[place] : 1950 Planned Disposition: Home Anticipated Discharge Date: 08/21/19 Discharge Date: 08/21/2019 Expected LOS: 2 Initial Reviewer: [email or web address] Initial Review Date: 08/21/2019 Generated: 08/21/19 5:33 pm Comments DCP- Discharge Planning Updated by [email or web address]: Farhad Kahn on 08/21/19 3:[address] Patient Name: MEHUL STRINGER Admission Status: ER Accout number: [id number] Admission Date: 08-19-2019 : 1950 Admission Diagnosis:ATHSCL HEART DISEASE OF [place] COR ART W UNSTABLE ANG P Attending: ENOC BOO Current LOS: 2 Anticipated DC Date: 08-21-2019 Planned Disposition: Home Primary Insurance: MEDICARE A & B Discharge Planning Comments: CM MET WITH PT IN ROOM TO DISCUSS DISCHARGE PLANNING AND NEEDS. PT REPORTS LIVING AT HOME INDEPENDENTLY AND ALONE IN [facility] APART[facility]. PT HAS SHOWER CHAIR THAT SHE IS NOT USING FROM [facility]. PT HAS NO OUTSIDE SERVICES ASSISTING IN THE HOME. CM DISCUSSED AVAILABILITY OF HOME HEALTH, REHAB SERVICES AND MEDICAL EQUIPMENT. PT DENIES DISCHARGE NEEDS, REPORTS HER SON WILL PICK HER UP FOR DISCHARGE HOME. CHIEF ENGINEER DRILLING AND RECOVERY NURSE NOTIFIED. Control Tower Radio Operator: Farhad Kahn DCPIA - Discharge Planning Initial Assessment Updated by [id number]: Farhad Kahn on 08/21/19 4:20 pm * Is the patient Alert and Oriented? Yes * How many steps to enter\exit or inside your home? NONE * PCP DR. WYNN IN [place] * Pharmacy [facility] * Preadmission Environment Home Alone * ADLs Independent * Equipment Shower Chair * Other Equipment [facility] - PREFERRED PROVIDER * List name and contact numbers for known caregivers / representatives who currently or will assist patient after discharge: SHAKIRA MESA, SON, ZACH ATKINS, SISTER, * Verbal permission to speak to the caregivers and representatives has been obtained from the patient. N/A * Community resources currently utilized None * Please name any agencies selected above. NONE * Additional services required to return to the preadmission environment? No * Can the patient safely return to the preadmission environment? Yes * Has this patient been hospitalized within the prior 30 days at any hospital? No Last DP export: 08/21/19 3:23 p Patient Name: MEHUL STRINGER Page 23849 at 1633 All edits/amendments must be made on the electronic document DICTATION DATE: 08/21/191632 PUTTY MIXER: ADALID 08/21/191632 RPT#: [id number] DC DATE:08/21/19 STATUS: DIS IN [facility] [address] [place] [address] END OF REPORT
== END 2019-08-21 15:01 | disposition home or self-care (01) | DRG 247 ==
LOC: OBSVTIME → D.OPS 04:41 → D.ER 04:41 → D.M2 06:17 → D.ER 06:17 → OBSVTIME 06:17 → D.ER 06:36 → EDSTATUS 14:57 → D.M2 18:19
PROVIDERS: Family Medicine; Internal Medicine Interventional Cardiology; ADMIT Emergency Medicine; ATTEND Emergency Medicine
PROC: 4A023N7 Measurement of Cardiac Sampling and Pressure, Left Heart, Percutaneous Approach (ICD-10-PCS; 2019-08-19)
PROC: B2111ZZ Fluoroscopy of Multiple Coronary Arteries using Low Osmolar Contrast (ICD-10-PCS; 2019-08-19)
PROC: B2151ZZ Fluoroscopy of Left Heart using Low Osmolar Contrast (ICD-10-PCS; 2019-08-19)
PROC: 027034Z Dilation of Coronary Artery, One Artery with Drug-eluting Intraluminal Device, Percutaneous Approach (ICD-10-PCS; principal; 2019-08-19 11:21)
PROC: 027034Z Dilation of Coronary Artery, One Artery with Drug-eluting Intraluminal Device, Percutaneous Approach (ICD-10-PCS; 2019-08-21)
DX: I25.110 Atherosclerotic heart disease of native coronary artery with unstable angina pectoris (principal); F31.30 Bipolar disorder, current episode depressed, mild or moderate severity, unspecified; T82.855A Stenosis of coronary artery stent, initial encounter; E78.5 Hyperlipidemia, unspecified; F41.8 Other specified anxiety disorders; Y84.9 Medical procedure, unspecified as the cause of abnormal reaction of the patient, or of later complication, without mention of misadventure at the time of the procedure; I15.0 Renovascular hypertension; Z95.0 Presence of cardiac pacemaker

== ENCOUNTER 2019-08-23 23:25 | Observation (INO) | payer MEDICARE, BC ==
[~2019-08-23] VITALS: Ht 152.4 cm; Wt 60.9 kg
[~2019-08-23 23:25] MED LIST changes: +CARDURA2 MG PO; +ISOSORBIDE MONO30 M1 PO; +PEPCID40 MG PO; +PROLIA INJ 660 MG/M1 SC; +REPATHA SY140 MG/1 M SC; +TRILEPTAL300 MG PO
[2019-08-23] MEDS ORDERED: PLAVIX75 MG PO (23:33)
[2019-08-23 23:55] LABS: HEMATOCRIT 35.5 % (36.0-48.0); HEMOGLOBIN 12.2 g/dL (12-16); LYMPHOCYTES 35.7 % (15-50); MCH 31.4 pg (26.0-34.0); MCHC 34.4 g/dL (31.0-37.0); MCV 91.3 fL (80.0-100.0); MEAN PLATELET VOLUME 8.8 fL (7.4-10.4); NEUTROPHILS 53.6 % (40-80); PLATELET COUNT 234 10x3/uL (130-400); RBC 3.89 10x6/uL (4.00-5.40); WBC 6.3 10x3/uL (4.8-10.8)
[2019-08-24] VITALS: BP 149/77
[2019-08-24 00:01] LABS: CALC OSMOLALITY 267 mosm/kg (275-300); CARBON DIOXIDE 27.6 mmol/L (21.0-32.0); CHLORIDE - SERUM 99 mmol/L (98-107); CREATININE - SERUM 0.6 mg/dL (0.6-1.3); GLUCOSE 116 mg/dL (74-106); POTASSIUM - SERUM 3.9 mmol/L (3.5-5.1); SODIUM 134 mmol/L (136-145); UREA NITROGEN 9 mg/dL (7-18); eGFR NON AFRICAN AMERICAN > 90 mL/min (90-120)
[2019-08-24 00:17] LABS: ALBUMIN 3.6 g/dL (3.4-5.0); ALKALINE PHOSPHATASE 109 U/L (30-120); ALT (SGPT) 22 U/L (10-68); CKMB 0.9 U/L (0.0-3.6); CREATINE KINASE 122 UL (21-215); PRO BNP 251 pg/mL (0-125); PROTEIN - SERUM 7.5 g/dL (6.4-8.2); TROPONIN-I 0.057 ng/mL (0.000-0.060)
[2019-08-24 01:54] VITALS: Ht 152.4 cm; Wt 60.9 kg
[2019-08-24 04:00] VITALS: BP 134/59
[2019-08-24 05:20] LABS: BASOPHILS 0.3 % (0-2); EOSINOPHILS 2.1 % (0-7); HEMATOCRIT 32.2 % (36.0-48.0); HEMOGLOBIN 10.6 g/dL (12-16); IMMATURE GRANULOCYTES 0.2 % (0-5); LYMPHOCYTES 37.8 % (15-50); MCH 30.4 pg (26.0-34.0); MCHC 32.9 g/dL (31.0-37.0); MCV 92.3 fL (80.0-100.0); MONOCYTES 14.2 % (2-11); NEUTROPHILS 45.4 % (40-80); PLATELET COUNT 237 10x3/uL (130-400); RBC 3.49 10x6/uL (4.00-5.40); RDW 12.1 % (11.5-14.5); WBC 5.8 10x3/uL (4.8-10.8)
[2019-08-24 05:34] LABS: INR 0.98 (0.85-1.17); PROTIME 12.9 SECONDS (11.6-15.0)
[2019-08-24 05:35] LABS: APTT 31.6 SECONDS (22.8-39.4)
[2019-08-24 06:09] LABS: CALC OSMOLALITY 271 mosm/kg (275-300); CALCIUM 8.4 mg/dL (8.5-10.1); CARBON DIOXIDE 26.8 mmol/L (21.0-32.0); CHLORIDE - SERUM 102 mmol/L (98-107); CKMB 0.8 U/L (0.0-3.6); CREATINE KINASE 103 UL (21-215); CREATININE - SERUM 0.6 mg/dL (0.6-1.3); GLUCOSE 100 mg/dL (74-106); MAGNESIUM - SERUM 2.1 mg/dL (1.8-2.4); PHOSPHOROUS 3.4 mg/dL (2.5-4.9); POTASSIUM - SERUM 3.8 mmol/L (3.5-5.1); SODIUM 137 mmol/L (136-145); TROPONIN-I 0.055 ng/mL (0.000-0.060); UREA NITROGEN 8 mg/dL (7-18); eGFR NON AFRICAN AMERICAN > 90 mL/min (90-120)
--- NOTE | 2019-08-24 07:58 | NUR ---
ASSESSMENT DONE. DENIES NEEDS
[2019-08-24 09:16] VITALS: BP 121/52
--- NOTE | 2019-08-24 11:12 | NUR ---
I have reviewed this patient and I concur with the Shift Assessment completed by the Licensed Practical Nurse today this shift.
[2019-08-24 11:19] LABS: CKMB 1.1 U/L (0.0-3.6); CREATINE KINASE 103 UL (21-215)
[2019-08-24 14:18] VITALS: BP 155/85
[2019-08-24 17:13] LABS: CREATINE KINASE 111 UL (21-215); TROPONIN-I 0.047 ng/mL (0.000-0.060)
[2019-08-24 18:14] VITALS: BP 99/25
--- NOTE | 2019-08-24 19:50 | NUR ---
PT LYING IN BED AWAKE ALERT AND ORIENTED x4. NO SIGNS OF DISTRESS NOTED. RESPIRATIONS EVEN AND UNLABORED. NO SIGNS OF DISTRESS NOTED. TURKEY SANDWHICH GIVEN PER PT REQUEST. CALL LIGHT WITH IN REACH AND BED IS IN ITS LOWEST POSITION. WILL CONTINUE TO MONITOR.
[2019-08-24 20:00] VITALS: BP 122/65
--- NOTE | 2019-08-25 02:25 | NUR ---
PT LYING IN BED RESTING WITH EYES CLOSED. EASILY AWAKEN WITH WITH VOISCE STIMULATION NO SIGNS OF DISTRESS NOTED. RESPIRATIONS EVEN AND UNLABORED. NO COMPLAINTS AT THIS TIME. PT ENCOURAGED TO CALL FOR HELP WHEN NEEDED. CALL LIGHT WITH IN REACH. WILL CONTINUE TO MONITOR
[2019-08-25 05:43] LABS: BASOPHILS 0.2 % (0-2); EOSINOPHILS 1.4 % (0-7); HEMATOCRIT 32.7 % (36.0-48.0); HEMOGLOBIN 10.7 g/dL (12-16); IMMATURE GRANULOCYTES 0.3 % (0-5); LYMPHOCYTES 31.9 % (15-50); MCH 30.7 pg (26.0-34.0); MCHC 32.7 g/dL (31.0-37.0); MEAN PLATELET VOLUME 9.4 fL (7.4-10.4); MONOCYTES 13.1 % (2-11); NEUTROPHILS 53.1 % (40-80); PLATELET COUNT 252 10x3/uL (130-400); RBC 3.48 10x6/uL (4.00-5.40); RDW 12.3 % (11.5-14.5); WBC 6.3 10x3/uL (4.8-10.8)
[2019-08-25 06:08] LABS: CALCIUM 8.1 mg/dL (8.5-10.1); CARBON DIOXIDE 23.9 mmol/L (21.0-32.0); CHLORIDE - SERUM 103 mmol/L (98-107); GLUCOSE 88 mg/dL (74-106); MAGNESIUM - SERUM 2.3 mg/dL (1.8-2.4); PHOSPHOROUS 3.3 mg/dL (2.5-4.9); POTASSIUM - SERUM 4.1 mmol/L (3.5-5.1); SODIUM 136 mmol/L (136-145); eGFR NON AFRICAN AMERICAN 76 mL/min (90-120)
[2019-08-25 06:11] LABS: CALC OSMOLALITY 270 mosm/kg (275-300); CREATININE - SERUM 0.8 mg/dL (0.6-1.3); UREA NITROGEN 13 mg/dL (7-18)
--- NOTE | 2019-08-25 06:44 | NUR ---
PT REFUSED TO HAVE FLUIDS. PT STATED WHY DO I NEED FLUIDS WHEN I AM DRINKING PLENTY OF FLUIDS. CALL LIGHT WITH IN REACH AND BED IS IN ITS LOWST POSITION. WILL CONTINUE TO MONITOR
[2019-08-25 08:56] VITALS: BP 100/57
[2019-08-25] MEDS ORDERED: CARAFATE1 G PO (12:24)
[2019-08-25 13:07] VITALS: BP 102/54
--- NOTE | 2019-08-25 15:23 | MORECARE ---
CASE MANAGEMENT DISCHARGE SUMMARY PATIENT: MEHUL STRINGER UNIT: [id number] ADM DATE: 08/23/19 AGE: 69 : 52 SEX: F ROOM/BED: D.9746 AUTHOR: DESMOND BURROWS PHYSICIAN: REFERRING PHYSICIAN: KAYE PARKER MD DATE OF SERVICE: 08/25/19 Discharge Plan Patient Name: MEHUL STRINGER [facility] [facility] 1950 Planned Disposition: Home Anticipated Discharge Date: 08/25/19 Discharge Date: Expected LOS: 2 Initial Reviewer: [email or web address] Initial Review Date: 08/25/2019 Generated: 08/25/19 4:23 pm Comments DCP- Discharge Planning Updated by [id number]: oJdy Arriaga on 08/24/19 4:[address] CORRALES SERVED, EXPLAINED, AND SIGNED BY PATIENT. THE ORIGINAL WAS PROVIDED TO THE PATIENT AND COPY PLACED ON CHART. Coverage Notice Reviewer: [id number] - Jody Arriaga Notice Issued Date-Time: 08/24/2019 9:00 Notice Type: Medicare Outpatient Observation Notice Notice Delivered To: Patient Relationship to Patient: Intelligence Agent Name: Delivery Method: HAND - Hand Delivered Eugenie Days: Prior Verbal Notification: Recipient Understood Notice: Yes Recipient Signature: Yes Med Rec Note Co-signed by Attending: Coverage Notice Comment: CORRALES SERVED, EXPLAINED, AND SIGNED BY PATIENT. THE ORIGINAL WAS PROVIDED TO THE PATIENT AND COPY PLACED ON CHART. Patient Name: MEHUL STRINGER Page 68400 at 1523 All edits/amendments must be made on the electronic document DICTATION DATE: 08/25/19 1523 WORLD RENOWNED CHEF AND RESTAURANT OWNER: ADALID 08/25/19 1523 RPT#: [id number] DC DATE: STATUS: ADM IN [facility] [address] [place] [address] END OF REPORT
== END 2019-08-25 15:30 | disposition home or self-care (01) ==
LOC: D.ER 23:25 → D.M2 23:53 → OBSVTIME 23:53 → D.M2 08-25 15:30
PROVIDERS: Family Medicine; ADMIT Internal Medicine Nephrology; ATTEND Internal Medicine Nephrology
DX: I25.110 Atherosclerotic heart disease of native coronary artery with unstable angina pectoris (principal); D64.9 Anemia, unspecified; F31.30 Bipolar disorder, current episode depressed, mild or moderate severity, unspecified; F41.8 Other specified anxiety disorders; K21.9 Gastro-esophageal reflux disease without esophagitis; E78.5 Hyperlipidemia, unspecified; I10 Essential (primary) hypertension; Z95.0 Presence of cardiac pacemaker

== ENCOUNTER 2019-10-16 06:21 | Observation (INO) | payer MEDICARE, BC ==
[~2019-10-16] VITALS: Ht 152.4 cm; Wt 66.6 kg
--- NOTE | ~2019-10-16 | CN ---
PATIENT NAME:MEHUL STRINGER MEDICAL RECORD: [id number] : 54 LOCATION:[place] D.2120 ADMIT DATE: 10/16/19 ACCOUNT: [id number] CONSULTING PHYSICIAN: GOPI TALLEY MD REFERRING PHYSICIAN: VIV FREITAS DO DATE OF CONSULTATION: 10/16/2019 HISTORY OF PRESENT ILLNESS: A 69-year-old female with known history of coronary artery disease status post 2-vessel intervention, been doing well up until the last couple of days, noticed on walking, her usual walk around in the neighborhood the chest tightness, pressure with exertion. This progressed to rest symptomology yesterday, was transferred from [place] for further evaluation. Cardiac enzymes are so far negative. This feels more reminiscent of her angina as opposed to her previous gastroesophageal reflux disease. We are asked to see her concerning her cardiovascular status. PAST MEDICAL HISTORY: Includes; 1. History of hypertension. 2. Hyperlipidemia. 3. Coronary artery disease as described above. 4. Gastroesophageal reflux disease. 5. Bipolar disorder. MEDICATIONS: Included Plavix 75 mg p.o. every day, carvedilol 25 b.i.d., Cardura 2 mg p.o. every day, Repatha 140 mg every other week, Imdur 30 every day, Avapro 300 every day, nifedipine 30 every day, clonidine 0.2 every 8 hours, aspirin 81 every day, Ativan 0.5 mg at bedtime, Trileptal 300 b.i.d., Pepcid 40 every day. ALLERGIES: STATINS. SOCIAL HISTORY: Nonsmoker, nondrinker. Easily does take care of all her ADLs, does walk on a regular basis. REVIEW OF SYSTEMS: The patient reports easy bruising but reports no swollen glands. The patient reports no fever, no night sweats, no significant weight gain, no significant weight loss. No significant exercise tolerance. The patient reports no dry eyes, no irritation, no vision change. Patient reports no difficulty hearing and no ear pain. Patient reports no frequent nose bleeds or nose and sinus problems. Patient reports on arm pain on exertion. No shortness of breath while lying down. No history of heart murmur. Patient reports no cough, no wheezing or coughing up blood. Patient reports no abdominal pain, no vomiting. Normal appetite. No diarrhea and not vomiting blood. No nausea and no constipation. Patient reports no incontinence. No difficulty urinating. No hematuria. No increased frequency. Patient reports no muscle aches. No weakness, no arthralgias, no back pain. No swelling of the extremities. Patient reports no abnormal mole, no jaundice, no rashes. Reports no loss of consciousness. No weakness and no numbness. No seizures, dizziness, or headaches. The patient reports no depression, no sleep disturbance, feeling safe in a relationship and no alcohol abuse. Patient reports on fatigue. Reports no runny nose or sinus pressure. No itching, no hives, and no frequent sneezing. DIAGNOSTIC DATA: EKG shows minor nonspecific ST-T changes. CONSULT REPORT [id number] MEHUL STRINGER IMPRESSION: Acute coronary syndrome with rest symptomology, at this point certainly within window for restenosis. PLAN: Angiography, intervention based on the above. TRANSINT:[id number] Voice Confirmation ID: [id number] DOCUMENT ID: [id number] GOPI TALLEY MD CC: [id number] DICTATION DATE: 10/16/19906 GIFT SHOP CLERK: 10/16/19 1514 ADM IN [facility] [address] [place] [id number]
--- NOTE | ~2019-10-16 | HEMODYNAMI ---
PATIENT:MEHUL STRINGER MEDICAL RECORD: [id number] : 54 LOCATION:[facility] D.2120 ADMISSION DATE: 10/16/19 Generatedon:10/16/201913:29 Patient name: MEHUL STRINGER Patient #: [id number] SSN: [id number] : 1950 Date of study: 10/16/2019 Page: Of Hemodynamic Procedure Report Patient Data Patient Demographics Procedure consent was obtained First Name: MEHUL Gender: Female Last Name: SIOMARA : 1950 [facility] Initial: C Age: 69 year(s) Patient #: [id number] Race: SSN: [id number] Additional ID: [id number] Contact details Address: [address] [place] [address] [address] State: [place] City: [place] Zip code: [address] Past Medical History Allergies Allergen Reaction Date Comments Reported Other allergy 04/26/2017 codeine Other allergy 04/27/2017 codeine Other allergy 05/24/2017 codeine Other allergy 08/21/2019 STATINS, CODEINE Other allergy 10/16/2019 STATINS, CODEINE Admission Admission Data Admission Date: 10/16/2019 Admission Time: 6:39 Arrival Date: 10/16/2019 Arrival Time: 0:00 Admit Source: Other Insurance Payor: Medicare Room #: D.2120 [facility] #: [id number] Height (in.): 60 BSA: 1.56 (m2) Height (cm.): 152.4 BMI: 25.44 (kg/m2) Weight (lbs.): 130.27 Weight (kg.): 59.09 Lab Results Lab Result Date: 10/16/2019 Lab Result Time: 0:00 Biochemistry Name Units Result Min Max BUN mg/dl 9 --(*---)-- 7 18 Creatinine mg/dl 0.7 --(*---)-- 0.6 1.3 eGFR ml/min 88.96217 -*(----)-- 90 120 NONAFRICAN CBC Name Units Result Min Max Hematocrit % 40.3 -*(----)-- 42 54 Hemoglobin g/dl 13.6 --(*---)-- 13.5 17.5 Procedure Procedure Types Cath Procedure Diagnostic Procedure [facility] w/Coronaries Sedation Charges Moderate Sedation up to 30 minutes PCI Procedure PTCA PTCA Initial Hemochron ACT Test Procedure Description Procedure Date Procedure Date: 10/16/2019 Procedure Start Time: 12:55 Procedure End Time: 13:27 Procedure Staff Name Function Estrada Holamn MD Performing Physician Miguelina Metcalf RT Monitor Andrez Martinez RN Nurse Leda Mujica RT Scrub Procedure Data Cath Procedure Fluoroscopy Diagnostic fluoroscopy Total fluoroscopy Time: 7.6 time: 7.6 min min Diagnostic fluoroscopy Total fluoroscopy dose: 757 dose: 757 mGy mGy Contrast Material Contrast Material Type Amount (ml) Isovue 300 101 Entry Location Entry Primary Successful Side Size Upsize Upsize Entry Closure Succes sful Closure Location (Fr) 1 (Fr) 2 (Fr) Remarks Device Remarks Femoral Right 5 Fr 6 Fr Exoseal artery Short Estimated blood loss: 10 ml Diagnostic catheters Device Type Used For End Catheter Placement MULTIPACK JL 4.0 5Fr Left Coronary catheter Angiography MULTIPACK 3DRC 5Fr Right Coronary catheter Angiography MULTIPACK Pigtail 5 Fr LV Angiography catheter Procedure Complications No complications Procedure Medications Medication Administration Route Dosage Oxygen etCO2 Nasal cannula 2 l/min Lidocaine 2% added to field 20 Heparin Flush Bag added to field 2 bags (1000units/500ml NS) 0.9% NaCl I.V. 100 ml/hr Phenergan 25 mg Versed I.V. 1 mg Fentanyl I.V. 50 mcg Fentanyl I.V. 50 mcg Versed I.V. 1 mg Versed I.V. 1 mg Heparin Bolus I.V. 4000 units Versed I.V. 1 mg Hemodynamics Rest BSA: 1.56 (m2) HGB: 13.6 (g/dl) O2 Consumption: Estimated: 156.02 (ml/min) O2 Co nsumption indexed: Estimated:100.01 (ml/min/m) Heart Rate: 89 (bpm) Pressure Samples Time Site Value (mmHg) Purpose Heart Use Rate(bpm) 13:00 LV 119/5,7 Snapshot 80 Gradients Valve Time Site Site Mean SEP/DFP Peak To Heart Use 1 2 (mmHg) (sec/min) Peak Rate (mmHg) (bpm) Aortic 13:01 LV AO 81 Snapshots Pre Cath Intra NCS Post Cath Vital Signs Time Heart Resp SPO2 etCO2 NIBP (mmHg) Rhythm Pain Sedation Rate (ipm) (%) (mmHg) Status Level (bpm) 12:39:10 83 13 99 0 146/76(110) NSR 0 (11) 10(A) , No pain 12:43:22 84 14 100 26.9 143/81(105) NSR 0 (11) 10(A) , No pain 12:47:36 73 10 100 28.4 134/73(105) NSR 0 (11) 10(A) , No pain 12:51:46 79 10 99 35.1 130/73(97) NSR 0 (11) 10(A) , No pain 12:55:54 81 17 99 20.9 131/76(105) NSR 0 (11) 10(A) , No pain 13:00:08 73 10 99 37.3 124/60(98) NSR 0 (11) 10(A) , No pain 13:04:18 76 23 99 36.5 115/64(88) NSR 0 (11) 10(A) , No pain 13:08:23 87 11 100 38.1 119/65(87) NSR 0 (11) 10(A) , No pain 13:12:31 85 44 100 37.3 116/64(87) NSR 0 (11) 10(A) , No pain 13:16:35 81 17 100 35 117/72(101) NSR 0 (11) 10(A) , No pain 13:20:39 86 19 100 20.1 136/74(106) NSR 0 (11) 10(A) , No pain 13:24:48 93 11 100 15.6 130/76(95) NSR 0 (11) 10(A) , No pain Medications Time Medication Route Dose Verified Delivered Reason Notes Effectiveness by by 12:38:13 Oxygen etCO2 2 Estrada Maguire used for Nasal l/min [facility] Davion Martinez telephone service representative cannula 12:38:20 Lidocaine 2% added 20ml Estrada Dorado for local to vial [facility] Davion Holman anesthetic field MD SHEPHERD 12:38:25 Heparin Flush added 2 Estrada Brantleyory used for Bag to bags [facility] procedure (1000units/500ml field MD SHEPHERD NS) 12:38:33 0.9% NaCl I.V. 100 Estrada Buffie Per physician ml/hr [facility] Davion Martinez RN, MD 12:42:18 Phenergan IM to 25 mg Estrada Buffie Per physician pt st ates Lt GM [facility] Davion Martinez RN nausea MD and will vomit without a phenergan shot. 12:47:33 Versed I.V. 1 mg Estrada Buffie for sedation St Davion Martinez RN, MD 12:47:39 Fentanyl I.V. 50 Estrada Buffie for sedation mcg [facility] Davion Matrinez RN, MD 12:51:08 Versed I.V. 1 mg Estrada Buffie for sedation St Davion Martinez RN, MD 12:51:51 Fentanyl I.V. 50 Estrada Buffie for sedation mcg [facility] Davion Martinez RN, MD 12:57:33 Versed I.V. 1 mg Estrada Buffie for sedation St Davion Martinez RN, MD 13:03:35 Heparin Bolus I.V. 4000 Estrada Buffie for verif ied units St Davion Martinez RN anticoagulation with dr MD lyon 13:03:59 Versed I.V. 1 mg Estrada Buffie for sedation verif ied St Davion Martinez RN with dr MD lyon Procedure Log Time Note 12:20:50 Miguelina Metcalf RT(R) (CV) sent for patient. Start room use. 12:22:40 Admit Source: Other 12:22:43 ACC Patient presents with Stable Angina CCS Anginal Class 2--Slight limitation of ordinary activity. 12:22:47 Procedure Status Urgent Heart Cath (IP). 12:23:01 Time tracking: Regular hours (M-F 7:00 - 5:00) 12:23:05 Plan of Care:Hemodynamics will remain stable., Cardiac rhythm will remain stable., Comfort level will be maintained., Respiratory function will remain adequate., Patient/ family verbilizes understanding of procedure., Procedure tolerated without complication., Recovers from procedure without complications.. 12:25:54 Lab Result : BUN 9 mg/dl 12::54 Lab Result : Creatinine 0.7 mg/dl 12::54 Lab Result : eGFR NONAFRICAN 88.93039 ml/min 12:25:54 Lab Result : Hemoglobin 13.6 g/dl 12::54 Lab Result : Hematocrit 40.3 % 12::58 Lab results completed and on chart. 12::01 Stress Test: no; N/A ? 12:26:02 Alarms reviewed by R. N. 12:26:03 Sharps counted by scrub and verified by R.N. 12:27:30 Risk of Mortality: 0.6 12:27:32 Risk of blood transfusion: 0.3 12:27:35 Risk of NICKY: 1.2 12:27:45 H&P Date Dictated: 10/16/2019 Within 30 days and on chart.. 12:27:48 Family unavailable. 12:27:49 Patient NPO since Midnight. 12:28:08 Patient allergic to Other allergySTATINS, CODEINE 12:28:16 Diagnostic Cath Status : Urgent 12:28:20 Arrival Date: 10/16/2019 12:00:00 AM 12:28:26 Insurance Payor : Medicare 12:28:47 Patient Height : 60 inches 12:28:52 Patient Weight : 130.27 lbs 12:29:11 Patient received from Med II to CCL 2 Alert and oriented. Tansferred to table in Supine position. 12:29:13 Warm blankets applied, and phong hugger turned on for patient comfort. 12:29:15 Signed procedure consent form obtained from patient. 12:29:15 Correct patient and procedure confirmed by team. 12:29:16 ECG and BP/O2 sat monitors applied to patient. 12:29:19 Pre-procedure instructions explained to patient. 12:29:20 Pre-op teaching completed and patient verbalized understanding. 12:29:22 Is the patient allergic to Iodine/contrast media? No. 12:38:03 Vital chart was started 12:38:13 Oxygen 2 l/min etCO2 Nasal cannula was administered by Andrez Martinez RN; used for procedure; Verbal order read back and verified. 12:38:20 Lidocaine 2% 20ml vial added to field was administered by Estrada Holman MD; for local anesthetic; Verbal order read back and verified. 12:38:25 Heparin Flush Bag (1000units/500ml NS) 2 bags added to field was administered by Estrada Holman MD; used for procedure; Verbal order read back and verified. 12:38:33 0.9% NaCl 100 ml/hr I.V. was administered by Andrez Martinez RN; Per physician; Verbal order read back and verified. 12:40:24 Baseline sample Acquired. 12:40:31 Rhythm: sinus rhythm 12:40:32 Full Disclosure recording started 12:40:33 - 12:40:37 Was the patient premedicated? Yes 12:40:40 Is patient on blood thinner?Yes 12:40:45 ACC The patient was administered the following blood thiners within the last 24 hours: ACCPlavix 12:40:52 Patient diabetic? No. 12:41:06 ----Pre-sedation anethsthesia assessment.---- 12:41:16 Previous problem with sedation/anesthesia? Yes NAUSEA 12:41:19 Snore? Yes 12:41:22 Sleep apnea? No 12:41:25 Deviated septum? Unknown 12:41:28 Opens mouth fully? Yes 12:41:33 Sticks out tongue? Yes 12:41:41 Airway obstruction? No ? 12:41:45 Dentures? No ? 12:41:53 Pre procedure: right dorsailis pedis pulse 2+ Normal; easily identifiable; not easily obliterated 12:42:17 IV patent on arrival in right forearm with 0.9% NaCl at [facility]. 12:42:18 Phenergan 25 mg IM to Lt GM was administered by Andrez Martinez RN; Per physician; pt states nausea and will vomit without a phenergan shot. Verbal order read back and verified. 12:42:31 Right groin area was prepped with chlora-prep and draped in sterile fashion 12:42:38 Use device set Femoral Dx 12:42:40 ACIST Syringe (32569) opened to sterile field. 12:42:41 Bag Decanter (2002) opened to sterile field. 12:42:41 Medline Cath Pack ([id number]) opened to sterile field. 12:42:43 ACIST Hand Control (42315) opened to sterile field. 12:42:44 ACIST Manifold (62572) opened to sterile field. 12:42:45 EMERALD Guide Wire (110-199) opened to sterile field. 12:42:45 DIAGNOSTIC Multipack 5Fr catheter set (GI6104) opened to sterile field. 12:42:46 Tegaderm 4 x 4 (1626W) opened to sterile field. 12:42:48 SHEATH 5FR Cocoa (VZH856) opened to sterile field. 12:45:21 Physician arrived 12:45:22 --------ALL STOP TIME OUT------ 12:45:23 Final Timeout: patient, procedure, and site verified with staff and physician. All members of the team are in agreement. 12:45:25 Right groin site verified by team. 12:45:32 Fire Safety Assessment: A--An alcohol-based skin anteseptic being used preoperatively., C--Open oxygen or nitrous oxide is being used., D--An ESU, laser, or fiber-optic light is being used. 12:45:43 Physical assessment completed. ASA score P 2 - A patient with mild systemic disease as per Estrada Holman MD. 12:45:57 2) 60-89 Mildly reduced kidney function, and other findings (as for stage 1) point to kidney disease. 12:46:07 Maximum allowable contrast dose (3.7 X eGFR X 0.75)244 ml. 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 12:47:33 Versed 1 mg I.V. was administered by Andrez Martinez RN; for sedation; Verbal order read back and verified. 12:47:39 Fentanyl 50 mcg I.V. was administered by Andrez Martinez RN; for sedation; Verbal order read back and verified. 12:51:08 Versed 1 mg I.V. was administered by Andrez Martinez RN; for sedation; Verbal order read back and verified. 12:51:51 Fentanyl 50 mcg I.V. was administered by Andrez Martinez RN; for sedation; Verbal order read back and verified. 12:53:59 Zero performed for pressure channel P1 12:55:04 Procedure started. 12:55:10 Local anesthetic to right femoral artery with Lidocaine 2% by Estrada Ricardo MD.INITIAL ACCESS ONLY 12:56:22 A 5 Fr sheath was inserted into the Right Femoral artery 12:56:30 A MULTIPACK JL 4.0 5Fr catheter was advanced over the wire and used for Left Coronary Angiography. 12:56:41 Injector settings: Ml/sec: 3, Volume: 6, 12:57:33 Versed 1 mg I.V. was administered by Andrez Martinez RN; for sedation; Verbal order read back and verified. 12:57:37 LCA angiography performed. 12:58:26 Catheter removed. 12:58:36 A MULTIPACK 3DRC 5Fr catheter was advanced over the wire and used for Right Coronary Angiography. 12:59:30 RCA angiography performed. 12:59:34 Injector settings: Ml/sec: 3, Volume: 6, 12:59:48 Catheter removed. 12:59:55 A MULTIPACK Pigtail 5 Fr catheter was advanced over the wire and used for LV Angiography. 13:00:00 Injector settings: Ml/sec: 5, Volume: 15, 13:00:09 LV gram done using KRUGER 13:01:01 LV hemodynamics recorded. 13:01:13 EF : 50 % 13:01:21 Catheter removed. 13:01:23 Proceeding to intervention. 13:02:21 SHEATH 6FR Cocoa (QCH724) opened to sterile field. 13:02:29 INFLATOR Merit BasixCompak (CO8778) opened to sterile field. 13:02:44 WHISPER 300cm guide wire ([id number]) opened to sterile field. 13:03:24 GUIDE 6FR XBLAD 3.5 catheter ([id number]) opened to sterile field. 13:03:35 Heparin Bolus 4000 units I.V. was administered by Andrez Martinez RN; for anticoagulation; verified with dr lyon Verbal order read back and verified. 13:03:59 Versed 1 mg I.V. was administered by Andrez Martinez RN; for sedation; verified with dr lyon Verbal order read back and verified. 13:04:05 Wire advanced across lesion. 13:04:11 Sheath upsized to a 6 Fr Short. 13:04:22 6 Fr XBLAD3.5 guide catheter was inserted over the wire 13:04:31 [id number] wire advanced. 13:04:41 Pre PCI Site: [place] mLAD has 80% stenosis. 13:04:45 ACC Pre-intervention MAGALI Flow is 3. 13:07:11 Inflate balloon Inflation number: 1 A EMERGE OTW 3.0 x 12 balloon ([id number]) was prepped and advanced across the Mid LAD , then inflated to 10 GUY for 0:19 (min:sec) . 13:07:34 Inflation number: 2 The EMERGE OTW 3.0 x 12 balloon ([id number]) was reinflated across the Mid LAD , to 4 GUY for 0:07 (min:sec) . 13:07:55 Inflation number: 3 The EMERGE OTW 3.0 x 12 balloon ([id number]) was reinflated across the Mid LAD , to 4 GUY for 0:06 (min:sec) . 13:08:19 Inflation number: 4 The EMERGE OTW 3.0 x 12 balloon ([id number]) was reinflated across the Mid LAD , to 4 GUY for 0:08 (min:sec) . 13:08:59 Inflation number: 5 The EMERGE OTW 3.0 x 12 balloon ([id number]) was reinflated across the Mid LAD , to 4 GUY for 0:11 (min:sec) . 13:09:23 Inflation number: 6 The EMERGE OTW 3.0 x 12 balloon ([id number]) was reinflated across the Mid LAD , to 2 GUY for 0:12 (min:sec) . 13:10:22 Balloon removed over the wire. 13:15:17 WHISPER 300cm guide wire ([id number]) opened to sterile field. 13:16:03 Inflate balloon Inflation number: 7 A WOLVERINE Rx 3.0 x 10 cutting balloon ([id number]) was prepped and advanced , then REMOVED UNABLE TO ADVANCE. . 13:17:21 Balloon removed over the wire. 13:19:25 Inflate balloon Inflation number: 8 A NC EUPHORA 3.0 x 15 balloon ([id number]) was prepped and advanced across the Mid LAD , then inflated to 14 GUY for 0:11 (min:sec) . 13:20:49 Balloon removed over the wire. 13:20:51 Wire removed. 13:20:53 Guide catheter removed. 13:21:04 EXOSEAL 6Fr (EX600) opened to sterile field. 13:21:26 Sheath removed intact; hemostasis achieved with Exoseal to the Right Femoral artery. 13:21:30 Procedure ended.(Physican Out) 13:21:49 Post PCI Site: [place] mLAD has 0% stenosis. 13:21:53 ACC Post-intervention MAGALI Flow is 3. 13:22:50 Fluoroscopy time 07.60 minutes. 13:22:56 Contrast amount:Isovue 300 101ml. 13:23:03 Fluoroscopy dose: 757 mGy 13:23:03 Flurop Dose total: 757 13:23:15 Dose Area Product 44181 mGy/cm. 13:23:19 Maximum allowable dose exceeded? No. 13:23:20 Sharps counted by scrub and verified by R.N. 13:23:45 ACT drawn and resulted at 227 seconds. (normal therapeutic range 180-24 0 seconds). 13:23:51 Insertion/operative site no bleeding no hematoma. 13:23:56 Post-op/insertion site Right Femoral artery dressed using a 4 x 4 and Tegaderm. 13:24:01 Post right femoral artery:stable 13:24:06 Post-procedure physical assessment completed. ASA score P 2 - A patient with mild systemic disease as per Estrada Holman MD. 13:24:10 Post procedure rhythm: unchanged. 13:24:17 Estimated blood loss: 10 ml 13:24:19 Post procedure instruction explained to patient.Patient verbalizes understanding. 13:24:21 Patient needs reinforcement of post procedure teaching. 13:25:42 Procedure type changed to Cath procedure, Diagnostic procedure, [facility], C w/Coronaries, Sedation Charges, Moderate Sedation up to 30 minutes, PCI procedure, PTCA, PTCA Initial, Hemochron ACT Test 13:26:08 Procedure and supply charges have been captured, reviewed, submitted an d are correct. 13:27:38 Procedure Complication : No complications 13:27:41 Vital chart was stopped 13:27:44 [facility] Findings: MVD- PCI performed (see procedure note) 13:27:46 Operative report dictated upon procedure completion. 13:27:47 See physician's report for complete and final results. 13:27:49 Report given to [facility]. 13:27:55 Patient transfered to [facility] with Bed. 13:27:59 Procedure ended. 13:27:59 Full Disclosure recording stopped 13:28:11 End room use (Document Last) Intervention Summary Intervention Notes Time ActionType Lesion and Equipment Action# Pressure Duration Attributes Used 13:07:11 Inflate Mid LAD EMERGE OTW 1 10 00:19 balloon 3.0 x 12 balloon ([id number]) 13:07:34 Reinflate Mid LAD EMERGE OTW 2 4 00:07 balloon 3.0 x 12 balloon ([id number]) 13:07:55 Reinflate Mid LAD EMERGE OTW 3 4 00:06 balloon 3.0 x 12 balloon ([id number]) 13:08:19 Reinflate Mid LAD EMERGE OTW 4 4 00:08 balloon 3.0 x 12 balloon ([id number]) 13:08:59 Reinflate Mid LAD EMERGE OTW 5 4 00:11 balloon 3.0 x 12 balloon ([id number]) 13:09:23 Reinflate Mid LAD EMERGE OTW 6 2 00:12 balloon 3.0 x 12 balloon ([id number]) 13:16:03 Inflate Mid LAD WOLVERINE Rx 7 0 00:00 balloon 3.0 x 10 cutting balloon ([id number]) 13:19:25 Inflate Mid LAD NC EUPHORA 8 14 00:11 balloon 3.0 x 15 balloon ([id number]) Device Usage Item Name Manufacture Quantity Catalog Number [facility] Lot# / Charge Number Stock Stock Serial# Code ACIST Acist 1 81698 582643 068421 673458 20 Syringe Medical (51871) Systems Inc Bag Decanter Microtek 1 940292 43367 681608 5 () Medical Inc. Medline Cath Medline 1 [id number] 928952 31968 198736 5 Pack ([id number]) ACIST Hand Acist 1 24433 972416 750169 979199 5 Control Medical (38400) Systems Inc ACIST Acist 1 85838 940440 003071 707890 5 Manifold Medical (07984) Systems Inc DIAGNOSTIC Cardinal 1 GX6412 486178 84273 498444 30 [facility] 5Fr catheter set (EQ6496) Tegaderm 4 x 3M 1 1626W 001599 767548 723165 5 4 (1626W) SHEATH 5FR Terumo 1 GEW744 194397 684740 054330 5 Cocoa (WWH515) MULTIPACK JL Cardinal 1 516614 5 4.0 5Fr Health catheter MULTIPACK Cardinal 1 362264 5 3DRC 5Fr Health catheter MULTIPACK Cardinal 1 972416 5 Pigtail 5 Fr Health catheter SHEATH 6FR Terumo 1 RFL290 548413 686842 175050 40 Cocoa (FYJ216) INFLATOR Merit 1 NT6655 773929 178111 868659 15 [facility] Medical BasixCompak (MO4087) WHISPER [place] 2 [id number] 651316 894823 029491 5 300cm guide Vascular wire ([id number]) EMERALD Cardinal 1 502-455 661887 348801 108438 5 Guide Wire Health (502-455) GUIDE 6FR Cardinal 1 94349523 455887 612758 785447 10 XBLAD 3.5 Health catheter (35114323) EMERGE OTW [place] 1 [id number] 584289 185979 887827 5 [id number] 3.0 x 12 Scientific balloon ([id number]) WOLVERINE Rx [place] 1 [id number] 184934 5805974 342075 5 3.0 x 10 Scientific cutting balloon ([id number]) NC EUPHORA Medtronic 1 [id number] 126483 482542 130453 1 [id number] 3.0 x 15 balloon ([id number]) EXOSEAL 6Fr Cardinal 1 EX600 891399 174545 869691 10 (EX600) Health Signature Audit Irene Stage Time Signature Unsigned Intra-Procedure 10/16/2019 Miguelina 1:28:48 PM Tea RT(R) (CV) Intra-Procedure 10/16/2019 Andrez Martinez RN 1:29:18 PM Intra-Procedure 10/16/2019 Estrada [place] 1:29:43 PM Davion SHEPHERD Signatures Performing Physician : Signature : Estrada Holman MD Date : Time : Monitor : Miguelina Signature : Nannemann RT Date : Time : Nurse : Buffie Martinez RN Signature : Date : Time : [address] [place] [address]
--- NOTE | ~2019-10-16 | OP ---
PATIENT NAME: MEHUL STRINGER MEDICAL RECORD: [id number] :54 LOCATION:D.M2 D.2119 ADMISSION DATE:10/16/19 SURGEON: GOPI TALLEY MD DATE OF OPERATION: 10/16/2019 PROCEDURE: Left heart catheterization, selective coronary angiography, PTCA to recent LAD stent, right femoral artery approach. CATHETERS: A 5-Burundian sheath, 5/4 left and right Odilia, 5/4 pig. The procedure was well tolerated. The patient returned to the hansen. Sheath removed. ExoSeal device placed. FINDINGS: Left ventriculography in 30-degree KRUGER view; normal wall motion. Normal systolic function. CORONARY ANATOMY: LEFT MAIN: Left main is free of disease. LAD: The distal end of the stented area has a discrete stenosis of 80%. CIRCUMFLEX: Circumflex previous stent is widely patent. RIGHT CORONARY ARTERY: Previous stent is widely patent. No progression of [place] disease. 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 PLAN: Intervention momentarily. DESCRIPTION OF PROCEDURE: A 5-Burundian sheath was exchanged for a 6-Burundian sheath, a 300 cm Whisper wire was placed across the tightly occluded stenosis down to portion of this vessel. We used a 3.0 noncompliant balloon up to 14 atmospheres for 45 seconds. Final angiography shows excellent resolution of 80% in-stent restenosis. No significant residual. MAGALI flow was 3 throughout the procedure. The patient previously on Plavix. Heparin used during the case. Sheath was closed with ExoSeal device. TRANSINT:[id number] Voice Confirmation ID: [id number] DOCUMENT ID: [id number] GOPI TALLEY MD CC: [id number] DICTATION DATE: 10/16/19 133 BUSINESS BANKING OFFICER: 10/16/192029 ADM IN [facility] [address] [id number]
[~2019-10-16 06:21] MED LIST changes: +CARAFATE1 G PO
[2019-10-16 07:00] VITALS: BP 163/78
[2019-10-16 07:17] LABS: PRO BNP 324 pg/mL (0-125); TROPONIN-I < 0.017 ng/mL (0.000-0.060)
--- NOTE | 2019-10-16 07:50 | NUR ---
RECEIVED PT TO ROOM 2119 FROM ER VIA STRETCHER RESP UNLABORED SKIN W/D COLOR WNL C/O CHEST PRESSURE DISCOMFORT DENIES ANY CHEST DISCOMFORT AT THIS TIME
[2019-10-16 08:40] LABS: BASOPHILS 0.2 % (0-2); EOSINOPHILS 1.2 % (0-7); HEMATOCRIT 40.3 % (36.0-48.0); HEMOGLOBIN 13.6 g/dL (12-16); IMMATURE GRANULOCYTES 0.2 % (0-5); LYMPHOCYTES 26.6 % (15-50); MCH 31.1 pg (26.0-34.0); MCHC 33.7 g/dL (31.0-37.0); MEAN PLATELET VOLUME 9.1 fL (7.4-10.4); MONOCYTES 11.5 % (2-11); NEUTROPHILS 60.3 % (40-80); RBC 4.38 10x6/uL (4.00-5.40); RDW 12.2 % (11.5-14.5); WBC 6.1 10x3/uL (4.8-10.8)
[2019-10-16 08:51] LABS: ALT (SGPT) 20 U/L (10-68); CALC OSMOLALITY 265 mosm/kg (275-300); CALCIUM 8.9 mg/dL (8.5-10.1); CARBON DIOXIDE 27.1 mmol/L (21.0-32.0); CHLORIDE - SERUM 97 mmol/L (98-107); CHOL - HDL RATIO 2.7 ratio (2.3-4.1); CHOLESTEROL, TOTAL 309 mg/dL (0-200); CREATININE - SERUM 0.7 mg/dL (0.6-1.3); GLUCOSE 116 mg/dL (74-106); HDL CHOLESTEROL 116 mg/dL (32-96); LDL CHOLESTEROL 180 mg/dL (0-100); LDL-HDL RATIO 1.6 ratio (1.5-3.5); SODIUM 133 mmol/L (136-145); TRIGLYCERIDE 67 mg/dL (30-200); UREA NITROGEN 9 mg/dL (7-18); eGFR NON AFRICAN AMERICAN 88 mL/min (90-120)
[2019-10-16 09:11] LABS: PLATELET COUNT 304 10x3/uL (130-400)
[2019-10-16 09:16] VITALS: BP 110/61
[2019-10-16 12:41] VITALS: BP 110/61; Ht 152.4 cm; Wt 66.6 kg
[2019-10-16 17:51] VITALS: BP 111/50
[2019-10-16 18:21] LABS: BILIRUBIN NEGATIVE (NEGATIVE); GLUCOSE NEGATIVE (NEGATIVE); KETONE MODERATE mg/dL (NEGATIVE); NITRITE NEGATIVE (NEGATIVE); UROBILINOGEN NORMAL (NORMAL)
[2019-10-16 20:27] VITALS: BP 134/70
[2019-10-16 23:43] VITALS: BP 91/55
[2019-10-17 05:23] VITALS: BP 124/60
[2019-10-17 06:45] LABS: CALC OSMOLALITY 274 mosm/kg (275-300); CALCIUM 7.8 mg/dL (8.5-10.1); CARBON DIOXIDE 27.3 mmol/L (21.0-32.0); CHLORIDE - SERUM 105 mmol/L (98-107); CREATININE - SERUM 0.8 mg/dL (0.6-1.3); GLUCOSE 88 mg/dL (74-106); POTASSIUM - SERUM 3.9 mmol/L (3.5-5.1); SODIUM 138 mmol/L (136-145); eGFR NON AFRICAN AMERICAN 76 mL/min (90-120)
[2019-10-17 06:46] LABS: UREA NITROGEN 12 mg/dL (7-18)
[2019-10-17 06:47] LABS: BASOPHILS 0 % (0-2); EOSINOPHILS 0.6 % (0-7); HEMATOCRIT 33.8 % (36.0-48.0); HEMOGLOBIN 10.9 g/dL (12-16); IMMATURE GRANULOCYTES 0.3 % (0-5); LYMPHOCYTES 23.1 % (15-50); MCH 30.3 pg (26.0-34.0); MCHC 32.2 g/dL (31.0-37.0); MCV 93.9 fL (80.0-100.0); PLATELET COUNT 264 10x3/uL (130-400); RDW 12.6 % (11.5-14.5); WBC 6.2 10x3/uL (4.8-10.8)
--- NOTE | 2019-10-17 08:59 | NUR ---
IV AND TELEMETRY DCD. DC PLANS GIVEN. UNDERSTANDING VOICED. ESCORTED TO CAR BY W/C.
== END 2019-10-17 09:00 | disposition home or self-care (01) ==
LOC: D.ER 06:21 → D.M2 06:39 → OBSVTIME 06:39 → D.M2 10-17 09:00
PROVIDERS: Family Medicine; Internal Medicine Interventional Cardiology; Internal Medicine Nephrology; ADMIT Family Medicine; ATTEND Family Medicine
DX: T82.855A Stenosis of coronary artery stent, initial encounter (principal); Y84.9 Medical procedure, unspecified as the cause of abnormal reaction of the patient, or of later complication, without mention of misadventure at the time of the procedure; I25.10 Atherosclerotic heart disease of native coronary artery without angina pectoris; K21.9 Gastro-esophageal reflux disease without esophagitis; E78.5 Hyperlipidemia, unspecified; I10 Essential (primary) hypertension; E87.1 Hypo-osmolality and hyponatremia; F41.8 Other specified anxiety disorders

== ENCOUNTER 2019-10-22 04:18 | Inpatient (IN) | payer MEDICARE, BC ==
[~2019-10-22] VITALS: Ht 167.6 cm; Wt 58.2 kg
[2019-10-22] VITALS (7 sets, daily range): BP systolic 110–150; BP diastolic 60–86; Ht 167.6 cm; Wt 58.2 kg
--- NOTE | ~2019-10-22 | HEMODYNAMI ---
PATIENT:MEHUL STRINGER MEDICAL RECORD: [id number] : 54 LOCATION:[facility] D.[id number] ADMISSION DATE: 10/22/19 Generatedon:10/24/201914:09 Patient name: MEHUL STRINGER Patient #: [id number] SSN: [id number] : 1950 Date of study: 10/24/2019 Page: Of Hemodynamic Procedure Report Patient Data Patient Demographics Procedure consent was obtained First Name: MEHUL Gender: Female Last Name: SIOMARA : 1950 [facility] Initial: C Age: 69 year(s) Patient #: [id number] Race: SSN: [id number] Additional ID: [id number] Contact details Address: [address] [place] [address] [address] State: [place] City: [place] Zip code: [address] Past Medical History History of disease Date Diagnosis Comments CAD Allergies Allergen Reaction Date Comments Reported Other allergy 04/26/2017 codeine Other allergy 04/27/2017 codeine Other allergy 05/24/2017 codeine Other allergy 08/21/2019 STATINS, CODEINE Other allergy 10/16/2019 STATINS, CODEINE Other allergy 10/24/2019 STATINS, CODEINE Admission Admission Data Admission Date: 10/22/2019 Admission Time: 15:29 Room #: D.2116 Height (in.): 65.75 BSA: 1.65 (m2) Height (cm.): 167 BMI: 20.8 (kg/m2) Weight (lbs.): 127.87 Weight (kg.): 58 Lab Results Lab Result Date: 10/24/2019 Lab Result Time: 0:00 Biochemistry Name Units Result Min Max BUN mg/dl 17 --(---*)-- 7 18 Creatinine mg/dl 0.9 --(-*--)-- 0.6 1.3 eGFR ml/min 66 *-(----)-- 90 120 NONAFRICAN CBC Name Units Result Min Max Hematocrit % 33 *-(----)-- 42 54 Hemoglobin g/dl 11 *-(----)-- 13.5 17.5 Procedure Procedure Types Cath Procedure Diagnostic Procedure LH Coronaries only Sedation Charges Moderate Sedation up to 15 minutes PCI Procedure Coronary Stent Coronary Stent Initial Hemochron ACT Test Procedure Description Procedure Date Procedure Date: 10/24/2019 Procedure Start Time: 13:46 Procedure End Time: 14:05 Procedure Staff Name Function Estrada Holman MD Performing Physician Barbra Potts RT Monitor Lindsay Thomason RT Scrub Andrez Martinez RN Nurse Procedure Data Cath Procedure Fluoroscopy Diagnostic fluoroscopy Total fluoroscopy Time: 6.6 time: 6.6 min min Diagnostic fluoroscopy Total fluoroscopy dose: 580 dose: 580 mGy mGy Contrast Material Contrast Material Type Amount (ml) Isovue 300 95 Entry Location Entry Primary Successful Side Size Upsize Upsize Entry Closure Succes sful Closure Location (Fr) 1 (Fr) 2 (Fr) Remarks Device Remarks Femoral Left 5 Fr 6 Fr artery Short Estimated blood loss: 10 ml Diagnostic catheters Device Type Used For End Catheter Placement MULTIPACK JL 4.0 5Fr Procedure catheter MULTIPACK 3DRC 5Fr Procedure catheter Procedure Complications No complications Procedure Medications Medication Administration Route Dosage Oxygen etCO2 Nasal cannula 2 l/min Lidocaine 2% added to field 20 Heparin Flush Bag added to field 2 bags (1000units/500ml NS) 0.9% NaCl I.V. 100 ml/hr Versed I.V. 1 mg Fentanyl I.V. 50 mcg Zofran I.V. 4 mg Phenergan 25 mg Heparin Bolus I.V. 4000 units Versed I.V. 1 mg Fentanyl I.V. 50 mcg Versed I.V. 1 mg Hemodynamics Rest BSA: 1.65 (m2) HGB: 11 (g/dl) O2 Consumption: Estimated: 163.05 (ml/min) O2 Cons umption indexed: Estimated:98.82 (ml/min/m) Heart Rate: 86 (bpm) Snapshots Pre Cath Intra NCS Post Cath Vital Signs Time Heart Resp SPO2 etCO2 NIBP (mmHg) Rhythm Pain Sedation Rate (ipm) (%) (mmHg) Status Level (bpm) 13:27:16 73 19 99 0 143/75(111) NSR 0 (11) 10(A) , No pain 13:31:26 75 19 99 0 138/77(112) NSR 0 (11) 10(A) , No pain 13:35:44 74 16 99 0 138/67(103) NSR 0 (11) 10(A) , No pain 13:40:02 71 18 100 0 135/66(102) NSR 0 (11) 10(A) , No pain 13:44:20 62 15 95 28.4 110/60(79) NSR 0 (11) 10(A) , No pain 13:48:28 66 23 97 0 104/59(81) NSR 0 (11) 9(A) , No pain 13:52:36 66 13 97 36.6 110/53(75) NSR 0 (11) 9(A) , No pain 13:56:46 68 15 98 38 96/57(79) NSR 0 (11) 9(A) , No pain 14:00:50 73 15 98 29.8 108/56(82) NSR 0 (11) 9(A) , No pain 14:04:55 75 19 98 34.3 103/62(81) NSR 0 (11) 10(A) , No pain Medications Time Medication Route Dose Verified Delivered Reason Notes Effectiveness by by 13:34:05 Zofran I.V. 4 mg Estrada Maguire Per physician [facility] Davion Martinez RN, MD 13:36:22 Phenergan IM to 25 mg Estrada Altafie Per physician LT GM [facility] Davion Martinez RN, MD 13:43:20 Oxygen etCO2 2 Estrada Andrez used for Nasal l/min [facility] Davion Martinez RN procedure cannula 13:43:26 Lidocaine 2% added 20ml Estrada Dorado for local to vial [facility] anesthetic field MD SHEPHERD 13:43:32 Heparin Flush added 2 Estrada Estrada used for Bag to bags [facility] procedure (1000units/500ml field MD SHEPHERD NS) 13:43:40 0.9% NaCl I.V. 100 Estrada Maguire Per physician ml/hr St Davion Martinez RN, MD 13:43:46 Versed I.V. 1 mg Estrada Buffie for sedation St Davion Martinez RN, MD 13:43:51 Fentanyl I.V. 50 Estrada Altafie for sedation mcg St Davion Martinez RN, MD 13:47:38 Versed I.V. 1 mg Estrada Buffie for sedation St Davion Martinez RN, MD 13:47:41 Fentanyl I.V. 50 Estrada Maguire for sedation mcg St Davion Martinez RN, MD 13:52:03 Heparin Bolus I.V. 4000 Estrada Maguire for verif ied units St Davion Martinez RN anticoagulation with dr MD lyon 13:57:06 Versed I.V. 1 mg Estrada Maguire for sedation St Davion Martinez RN, MD Procedure Log Time Note 12:57:24 Informed consent obtained and on chart 12:57:43 Procedure Status Urgent Heart Cath (IP). 12:57:44 Time tracking: Regular hours (M-F 7:00 - 5:00) 12:57:47 Plan of Care:Hemodynamics will remain stable., Cardiac rhythm will remain stable., Comfort level will be maintained., Respiratory function will remain adequate., Patient/ family verbilizes understanding of procedure., Procedure tolerated without complication., Recovers from procedure without complications.. 12:58:38 H&P Date Dictated: 10/22/2019 Within 30 days and on chart., H&P Addendum completed by physician on day of procedure. (MUST COMPLETE FOR ALL OUTPATIENTS). 12:58:51 Patient allergic to Other allergySTATINS, CODEINE 13:03:58 Lab Result : BUN 17 mg/dl 13:03:58 Lab Result : Creatinine 0.9 mg/dl 13:03:58 Lab Result : eGFR NONAFRICAN 66 ml/min 13:03:58 Lab Result : Hemoglobin 11 g/dl 13:03:58 Lab Result : Hematocrit 33 % 13:04:16 Patient Weight : 127.87 lbs 13:04:19 Patient Height : 65.75 inches 13:10:17 Barbra Potts RT(R) sent for patient. Start room use. 13:26:04 Patient received from Med II to CCL 2 Alert and oriented. Tansferred to table in Supine position. 13:26:05 Warm blankets applied, and phong hugger turned on for patient comfort. 13:26:05 Correct patient and procedure confirmed by team. 13:26:06 ECG and BP/O2 sat monitors applied to patient. 13:26:06 Vital chart was started 13:26:08 Baseline sample Acquired. 13:26:44 Rhythm: sinus rhythm 13:26:45 Full Disclosure recording started 13::46 Pre-procedure instructions explained to patient. 13:26:47 Pre-op teaching completed and patient verbalized understanding. 13:26:48 Family AVAILABLE WITH PHONE CALL 13:27:07 Patient NPO since Midnight. 13:27:08 Is patient on blood thinner?Yes 13:27:11 ACC The patient was administered the following blood thiners within the last 24 hours: ACCBrilinta 13:27:13 Patient diabetic? No. 13:27:14 Patient not . Patient is over age 55. 13:27:17 Previous problem with sedation/anesthesia? Yes ?NAUSEA 13:27:18 Snore? Yes 13:27:19 Sleep apnea? Yes 13:27:19 Deviated septum? No 13:27:33 Opens mouth fully? Yes 13:27:34 Sticks out tongue? Yes 13:27:38 Airway obstruction? No ? 13:27:41 Dentures? No ? 13:27:55 Pre procedure: left dorsailis pedis pulse 1+ Palpable, but thready & weak; easily obliterated 13:27:59 Patient pain scale 2/10 ?. 13:28:02 IV patent on arrival in right hand with 0.9% NaCl at [facility]. 13:28:05 Lab results completed and on chart. 13:28:08 Left groin area was prepped with chlora-prep and draped in sterile fashion 13:28:10 Alarms reviewed by R. N. 13:28:12 Sharps counted by scrub and verified by R.N. 13:34:05 Zofran 4 mg I.V. was administered by Andrez Martinez RN; Per physician; Verbal order read back and verified. 13:36:22 Phenergan 25 mg IM to LT GM was administered by Andrez Martinez RN; Per physician; Verbal order read back and verified. 13:39:52 --------ALL STOP TIME OUT------ 13:39:52 Final Timeout: patient, procedure, and site verified with staff and physician. All members of the team are in agreement. 13:40:16 Right groin site verified by team. 13:40:19 Fire Safety Assessment: A--An alcohol-based skin anteseptic being used preoperatively., C--Open oxygen or nitrous oxide is being used., D--An ESU, laser, or fiber-optic light is being used. 13:40:22 Physical assessment completed. ASA score P 2 - A patient with mild systemic disease as per Estrada Holman MD. 13:41:01 2) 60-89 Mildly reduced kidney function, and other findings (as for stage 1) point to kidney disease. 13:41:06 Maximum allowable contrast dose (3.7 X eGFR X 0.75)183 ml. 13:41:09 Sedation plan: IV Moderate Sedation Medication:Versed, Fentanyl 13:43:15 Zero performed for pressure channel P1 13:43:18 Use device set Femoral Dx 13:43:19 ACIST Syringe (13672) opened to sterile field. 13:43:20 Oxygen 2 l/min etCO2 Nasal cannula was administered by Andrez Martinez RN; used for procedure; Verbal order read back and verified. 13:43:20 Bag Decanter (2002S) opened to sterile field. 13:43:21 ACIST Hand Control (31901) opened to sterile field. 13:43:22 ACIST Manifold (61627) opened to sterile field. 13:43:22 Tegaderm 4 x 4 (1626W) opened to sterile field. 13:43:24 Medline Cath Pack ([id number]) opened to sterile field. 13:43:26 Lidocaine 2% 20ml vial added to field was administered by Estrada Holman MD; for local anesthetic; Verbal order read back and verified. 13:43:27 DIAGNOSTIC Multipack 5Fr catheter set (JE9080) opened to sterile field. 13:43:29 SHEATH 5FR Caspian (UJF566) opened to sterile field. 13:43:30 EMERALD Guide Wire (670-805) opened to sterile field. 13:43:32 Heparin Flush Bag (1000units/500ml NS) 2 bags added to field was administered by Estrada Holman MD; used for procedure; Verbal order read back and verified. 13:43:40 0.9% NaCl 100 ml/hr I.V. was administered by Andrez Martinez RN; Per physician; Verbal order read back and verified. 13:43:46 Versed 1 mg I.V. was administered by Andrez Martinez RN; for sedation; Verbal order read back and verified. 13:43:51 Fentanyl 50 mcg I.V. was administered by Andrez Martinez RN; for sedation; Verbal order read back and verified. 13:45:29 Procedure started. 13:46:39 Local anesthetic to left femerol artery with Lidocaine 2% by Estrada Holman MD.INITIAL ACCESS ONLY 13:47:04 A 5 Fr sheath was inserted into the Left Femoral artery 13:47:21 A MULTIPACK JL 4.0 5Fr catheter was advanced over the wire and used for Procedure. 13:47:38 Versed 1 mg I.V. was administered by Andrez Martinez RN; for sedation; Verbal order read back and verified. 13:47:41 Fentanyl 50 mcg I.V. was administered by Andrez Martinez RN; for sedation; Verbal order read back and verified. 13:49:36 LV gram done using POLISH 13:49:38 Catheter removed. 13:49:44 A MULTIPACK 3DRC 5Fr catheter was advanced over the wire and used for Procedure. 13:49:46 RCA angiography performed. 13:49:57 Catheter removed. 13:50:40 Proceeding to intervention. 13:50:47 Pre PCI Site: [place] LAD has 80% stenosis. 13:51:00 SHEATH 6FR Caspian (UNP326) opened to sterile field. 13:51:01 INFLATOR Merit BasixCompak (NW0256) opened to sterile field. 13:51:01 WHISPER 300cm guide wire ([id number]) opened to sterile field. 13:51:15 Sheath upsized to a 6 Fr Short. 13:51:37 GUIDE 6FR JL 4.0 catheter (IH2BU33) opened to sterile field. 13:52:03 Heparin Bolus 4000 units I.V. was administered by Andrez Martinez RN; for anticoagulation; verified with dr lyon Verbal order read back and verified. 13:52:11 6 Fr JL4 guide catheter was inserted over the wire 13:53:01 WHISPER 300 wire advanced. 13:57:06 Versed 1 mg I.V. was administered by Andrez Martinez RN; for sedation; Verbal order read back and verified. 13:59:07 Wire removed. 13:59:24 BMW 300cm Straight [place] 2 wire ([id number]) opened to sterile field. 13:59:52 BMW 300 wire advanced. 13:59:56 Wire advanced across lesion. 14:01:33 Place stent Inflation Number: 1 A ELLEN OTW 2.5 x 12 stent ([id number]) was prepped and advanced across the Mid LAD . The stent was deployed at 12 GUY for 0:00 (min:sec) . 14::35 Stent catheter was removed intact over wire. 14::35 Balloon removed over the wire. 14:01:36 Guide catheter removed. 14:02:02 EXOSEAL 6Fr (EX600) opened to sterile field. 14:03:07 Procedure ended.(Physican Out) 14:03:24 Fluoroscopy time 06.60 minutes. 14:03:29 Flurop Dose total: 580 14:03:29 Fluoroscopy dose: 580 mGy 14:03:34 Dose Area Product 86925. mGy/cm. 14:03:39 Contrast amount:Isovue 300 95ml. 14:03:41 Maximum allowable dose exceeded? No. 14:03:41 Sharps counted by scrub and verified by R.N. 14:03:44 Post-op/insertion site Left Femoral artery dressed using a 4 x 4 and Tegaderm. 14:03:47 Post-procedure physical assessment completed. ASA score P 2 - A patient with mild systemic disease as per Estrada Holman MD. 14:03:49 Post procedure rhythm: sinus rhythm 14:03:53 Estimated blood loss: 10 ml 14:03:54 Post procedure instruction explained to patient.Patient verbalizes understanding. 14:03:54 Patient needs reinforcement of post procedure teaching. 14:05:07 Procedure type changed to Cath procedure, Diagnostic procedure, C, Coronaries only, Sedation Charges, Moderate Sedation up to 15 minutes, PCI procedure, Coronary Stent, Coronary Stent Initial, Hemochron ACT Test 14:05:38 Procedure and supply charges have been captured, reviewed, submitted and are correct. 14:05:41 Procedure Complication : No complications 14:05:44 Vital chart was stopped 14:05:45 [facility] Findings: MVD- PCI performed (see procedure note) 14:05:47 Operative report dictated upon procedure completion. 14:05:47 See physician's report for complete and final results. 14:05:50 Report given to Med II. 14:05:52 Patient transfered to [facility] with Bed. 14:05:54 Procedure ended. 14:05:54 Full Disclosure recording stopped 14:06:02 End room use (Document Last) 14:08:22 ACT drawn and resulted at 310 seconds. (normal therapeutic range 180-240 seconds). 14:08:44 End room use (Document Last) 14:09:04 End room use (Document Last) Intervention Summary Intervention Notes Time ActionType Lesion and Equipment Action# Pressure Duration Attributes Used 14:01:33 Place stent Mid LAD ELLEN OTW 2.5 1 12 00:00 x 12 stent ([id number]) Device Usage Item Name Manufacture Quantity Catalog Hospital Part Current Minim al Lot# / Number Charge Number Stock Stock Serial# Code ACIST Syringe Acist 1 26639 100294 428884 552469 20 (05984) Medical Systems Inc Bag Decanter Microtek 1 2001S 475349 67357 798822 5 (2001S) Medical Inc. ACIST Hand Acist 1 34859 336811 207109 804239 5 Control Medical (97587) Systems Inc ACIST Acist 1 71127 996926 080363 408905 5 Manifold Medical (44105) Systems Inc Tegaderm 4 x 3M 1 1626W 699017 508589 357553 5 4 (1626W) Medline Cath Medline 1 [id number] 379627 13381 672330 5 Pack ([id number]) DIAGNOSTIC Cardinal 1 LV3219 046843 32579 849240 30 Multipack 5Fr Health catheter set (UY6734) SHEATH 5FR Terumo 1 MWH241 414854 167932 160320 5 Caspian (NKE339) EMERALD Guide Cardinal 1 502-455 475737 555671 489382 5 Wire Health (502-455) MULTIPACK JL Cardinal 1 883016 5 4.0 5Fr Health catheter MULTIPACK Cardinal 1 171279 5 3DRC 5Fr Health catheter SHEATH 6FR Terumo 1 KRG043 350751 096490 849634 40 Caspian (XPF309) INFLATOR Merit 1 VR5959 349073 833782 965559 15 [facility] Medical BasixCompak (IP9852) WHISPER 300cm [place] 1 [id number] 089254 977477 720478 5 guide wire Vascular (0249995LE) GUIDE 6FR JL Medtronic 1 [id number] 109501 86191 399386 1 4.0 catheter (PS0SP15) BMW 300cm [place] 1 6873019 298941 399355 616638 5 Straight Vascular [place] 2 wire (6356561) ELLEN OTW 2.5 Medtronic 1 [id number] 129068 62550 604667 5 [id number] x 12 stent ([id number]) EXOSEAL 6Fr Cardinal 1 EX600 892451 208195 547828 10 (EX600) Health Signature Audit [place] Stage Time Signature Unsigned Intra-Procedure 10/24/2019 Barbra Potts 2:08:45 PM RT(R) Intra-Procedure 10/24/2019 Andrez Martinez RN 2:09:04 PM Intra-Procedure 10/24/2019 Estrada [place] 2:09:24 PM Davion SHEPHERD Signatures Performing Physician : Signature : Estrada Holman MD Date : Time : Monitor : Barbra Potts Signature : RT Date : Time : Nurse : Andrez Martinez RN Signature : Date : Time : [address] [address]
[2019-10-22 05:44] LABS: CREATINE KINASE 126 UL (21-215); MAGNESIUM - SERUM 2.1 mg/dL (1.8-2.4)
[2019-10-22 05:50] LABS: TROPONIN-I 0.133 ng/mL (0.000-0.060)
--- NOTE | 2019-10-22 06:30 | NUR ---
PT ARRIVED VIA W/C FROM ER WITH HANY CP. LAB WNL. PT DENEIS ANY DISCOMFORT AT THIS TIME. SR PER CMHR 76. PPM NOTED. IV TO RAC SL. LARGE BRUISE NOTED TO R THIGH. PT ORIENTED TO PERSON, PLACE AND TIME. BED CONTROLS AND CALL LIGHT EXPLAINED TO PT. CALL LIGHT WITHIN REACH.
[2019-10-22 07:16] LABS: BASOPHILS 0.1 % (0-2); HEMATOCRIT 35.2 % (36.0-48.0); HEMOGLOBIN 11.8 g/dL (12-16); IMMATURE GRANULOCYTES 0.3 % (0-5); LYMPHOCYTES 25.4 % (15-50); MCH 30.8 pg (26.0-34.0); MCHC 33.5 g/dL (31.0-37.0); MCV 91.9 fL (80.0-100.0); MEAN PLATELET VOLUME 9.2 fL (7.4-10.4); MONOCYTES 12.5 % (2-11); NEUTROPHILS 60.7 % (40-80); RBC 3.83 10x6/uL (4.00-5.40); RDW 12.6 % (11.5-14.5)
[2019-10-22 07:17] LABS: PLATELET COUNT 319 10x3/uL (130-400)
[2019-10-22 07:26] LABS: ALBUMIN 3.8 g/dL (3.4-5.0); ALKALINE PHOSPHATASE 85 U/L (30-120); ALT (SGPT) 21 U/L (10-68); BILIRUBIN - TOTAL 0.52 mg/dL (0.2-1.3); CALC OSMOLALITY 270 mosm/kg (275-300); CALCIUM 9.7 mg/dL (8.5-10.1); CARBON DIOXIDE 25.6 mmol/L (21.0-32.0); CHLORIDE - SERUM 98 mmol/L (98-107); CREATININE - SERUM 0.7 mg/dL (0.6-1.3); GLUCOSE 106 mg/dL (74-106); POTASSIUM - SERUM 4.2 mmol/L (3.5-5.1); PROTEIN - SERUM 7.9 g/dL (6.4-8.2); SODIUM 136 mmol/L (136-145); UREA NITROGEN 10 mg/dL (7-18); eGFR NON AFRICAN AMERICAN 88 mL/min (90-120)
[2019-10-22 15:35] LABS: BILIRUBIN NEGATIVE (NEGATIVE); GLUCOSE NEGATIVE (NEGATIVE); KETONE NEGATIVE (NEGATIVE); NITRITE NEGATIVE (NEGATIVE); UROBILINOGEN NORMAL (NORMAL)
--- NOTE | 2019-10-22 16:04 | NUR ---
URINE SPECIMEN COLLECTED AND TAKEN TO LAB. WILL MONITOR.
--- NOTE | 2019-10-22 20:12 | NUR ---
INITAL ROUNDS COMPLETED AT 1915 HRS. PT DENIED ANY DISCOMFORT. ASSESSMENT COMPLETED AT 1999 HRS. VSS. SR PER CM HR 71. IV TO RAC SL. LUNGS CTA. RIGGS. PALPABLE PERIPHERAL PULSES. LARGE PURPLE BRUISE NOTED FROM R GROIN EXTENDING TO BACK OF R KNEE. ALERT AND ORIENTED TO PERSON, PLACE AND TIME. SR UP X1, CALL LIGHT WITHIN REACH.
--- NOTE | 2019-10-22 21:38 | NUR ---
PM MEDS GIVEN. IV TO RAC OCCLUDED. DC'D WITH CATHETER INTACT. NEW IV STARTED #22 TO R HAND WITH ATTEMPT X1. PT TOLERATED PROCEDURE WELL. CALL LIGHT WITHIN REACH.
--- NOTE | 2019-10-22 23:13 | NUR ---
PT AWAKE; DENIES ANY DISCOMFORT. CALL LIGHT WITHN REACH.
[2019-10-23 00:30] VITALS: BP 97/48
--- NOTE | 2019-10-23 01:29 | NUR ---
PT RESTING WITH EYES CLOSED. RESP EVEN AND REGULAR. CALL LIGHT WITHIN REACH.
--- NOTE | 2019-10-23 03:54 | NUR ---
PT RESTING WITH EYES CLOSED. RESP EVEN AND REGULAR. CALL LIGHT WITHIN REACH.
[2019-10-23 04:30] VITALS: BP 97/56
--- NOTE | 2019-10-23 06:29 | NUR ---
VSS THROUGHOUT NIGHT. SR PER CM. PT STATED SHE RESTED WELL DURING SHIFT. NEEDS MET; WILL CONTINUE TO MONITOR.
[2019-10-23 06:51] LABS: BASOPHILS 0.2 % (0-2); HEMATOCRIT 31.6 % (36.0-48.0); HEMOGLOBIN 10.3 g/dL (12-16); IMMATURE GRANULOCYTES 0.3 % (0-5); LYMPHOCYTES 27.3 % (15-50); MCH 30.3 pg (26.0-34.0); MCHC 32.6 g/dL (31.0-37.0); MCV 92.9 fL (80.0-100.0); MEAN PLATELET VOLUME 9.3 fL (7.4-10.4); MONOCYTES 12.2 % (2-11); PLATELET COUNT 301 10x3/uL (130-400); RDW 12.8 % (11.5-14.5)
[2019-10-23 07:06] LABS: ANION GAP 9.4 mmol/L (8-16); CALCIUM 8.6 mg/dL (8.5-10.1); CARBON DIOXIDE 28.9 mmol/L (21.0-32.0); POTASSIUM - SERUM 4.3 mmol/L (3.5-5.1)
[2019-10-23 07:09] LABS: CREATININE - SERUM 1.2 mg/dL (0.6-1.3)
[2019-10-23 10:37] VITALS: BP 94/53
--- NOTE | 2019-10-23 12:20 | NUR ---
I have reviewed this patient and I concur with the Shift Assessment completed by the Licensed Practical Nurse today this shift.
[2019-10-23 14:17] VITALS: BP 118/62
--- NOTE | 2019-10-23 19:33 | NUR ---
PATIENT IS ALERT AND ORIENTED, RESTING COMFORTABLY IN BED. RESPIRATIONS ARE EVEN AND UNLABORED. NO S/S OF DISTRESS. NO C/O PAIN. CALL LIGHT WITHIN REACH. WILL CPOC.
[2019-10-23 19:47] VITALS: BP 118/63
[2019-10-24 00:26] VITALS: BP 109/62
[2019-10-24 03:57] VITALS: BP 101/60
[2019-10-24 06:14] LABS: BASOPHILS 0.3 % (0-2); EOSINOPHILS 2.3 % (0-7); IMMATURE GRANULOCYTES 0.5 % (0-5); LYMPHOCYTES 26.5 % (15-50); MCH 30.7 pg (26.0-34.0); MCHC 33.3 g/dL (31.0-37.0); MCV 92.2 fL (80.0-100.0); MEAN PLATELET VOLUME 9.2 fL (7.4-10.4); MONOCYTES 12.6 % (2-11); NEUTROPHILS 57.8 % (40-80); PLATELET COUNT 310 10x3/uL (130-400); RBC 3.58 10x6/uL (4.00-5.40); RDW 12.5 % (11.5-14.5); WBC 5.7 10x3/uL (4.8-10.8)
[2019-10-24 06:33] LABS: ANION GAP 12.2 mmol/L (8-16); CALCIUM 8.5 mg/dL (8.5-10.1); CARBON DIOXIDE 26.1 mmol/L (21.0-32.0); CREATININE - SERUM 0.9 mg/dL (0.6-1.3); POTASSIUM - SERUM 4.3 mmol/L (3.5-5.1)
[2019-10-24 08:42] LABS: CHOL - HDL RATIO 2.8 ratio (2.3-4.1); LDL-HDL RATIO 1.5 ratio (1.5-3.5)
[2019-10-24 09:00] VITALS: BP 128/62
--- NOTE | 2019-10-24 13:13 | NUR ---
PRE-OPS GIVEN. TO BUGGYMAN BY BED.
--- NOTE | 2019-10-24 14:30 | NUR ---
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 VS WNL. LEFT GROIN STABLE WITHOUT BLEEDING OR HEMATOMA NOTED. WILL MONITOR.
[2019-10-24] MEDS ORDERED: BRILINTA90 MG PO (15:39)
--- NOTE | 2019-10-24 15:57 | MORECARE ---
CASE MANAGEMENT DISCHARGE SUMMARY PATIENT: MEHUL STRINGER UNIT: [id number] ADM DATE: 10/22/19 AGE: 69 : 52 SEX: F ROOM/BED: D.1036 AUTHOR: MARKOS,DOC PHYSICIAN: REFERRING PHYSICIAN: KAYE PARKER MD DATE OF SERVICE: 10/24/19 Discharge Plan Patient Name: MEHUL STRINGER Facility: [facility]:[place] : 1950 Planned Disposition: Home Anticipated Discharge Date: Discharge Date: Expected LOS: Initial Reviewer: [email or web address] Initial Review Date: 10/24/2019 Generated: 10/24/19 4:57 pm Comments DCP- Discharge Planning Updated by [email or web address]: Haleigh Dueñas on 10/24/19 2:[address] Patient Name: MEHUL STRINGER Admission Status: ER Accout number: [id number] Admission Date: 10-22-2019 : 1950 Admission Diagnosis: Attending: KAYE PARKER Current LOS: 2 Anticipated DC Date: Planned Disposition: Home Primary Insurance: MEDICARE A & B Discharge Planning Comments: CM met with patient to complete initial dc planning assessment. CM educated patient on the CM role and verbal consent given by patient to complete assessment. Patient lives at home alone. At discharge patient plans to return and feels this is a safe discharge. CM discussed availability of home health, rehab services, and medical equipment. Patient denied known discharge needs at this time. States her son will take her home. No needs identified. CM will continue to follow and will assist as needed with dc plans/needs. Log Brander: Haleigh Dueñas DCPIA - Discharge Planning Initial Assessment Updated by [email or web address]: Haleigh Dueñas on 10/24/19 3:50 pm * Is the patient Alert and Oriented? Yes * How many steps to enter\exit or inside your home? 0/0 * Pharmacy [facility] in [place] * Preadmission Environment Home Alone * ADLs Independent * Equipment None * List name and contact numbers for known caregivers / representatives who currently or will assist patient after discharge: Rashaad wills - [phone] * Verbal permission to speak to the caregivers and representatives has been obtained from the patient. Yes * Community resources currently utilized None * Additional services required to return to the preadmission environment? No * Can the patient safely return to the preadmission environment? Yes * Has this patient been hospitalized within the prior 30 days at any hospital? Yes Patient Name: MEHUL STRINGER Page 18605 at 1557 All edits/amendments must be made on the electronic document DICTATION DATE: 10/24/191556 PHLEBOTOMY COORDINATOR: ADALID 10/24/191556 RPT#: [id number] DC DATE: STATUS: ADM IN [facility] [address] [place] [address] END OF REPORT
[2019-10-24 16:47] VITALS: BP 110/64
--- NOTE | 2019-10-24 18:27 | NUR ---
IV AND TELEMETRY DCD. DC PLANS GIVEN. UNDERSTANDING VOICED. ESCORTED TO CAR BY W/C.
--- NOTE | 2019-10-25 08:46 | MORECARE ---
CASE MANAGEMENT DISCHARGE SUMMARY PATIENT: MEHUL STRINGER UNIT: [id number] ADM DATE: 10/22/19 AGE: 69 : 52 SEX: F ROOM/BED: D.3363 AUTHOR: MARKOS,DOC PHYSICIAN: REFERRING PHYSICIAN: KAYE PARKER MD DATE OF SERVICE: 10/25/19 Discharge Plan Patient Name: MEHUL STRINGER Facility: [facility]:[place] : 1950 Planned Disposition: Home Anticipated Discharge Date: Discharge Date: 10/24/2019 Expected LOS: Initial Reviewer: [email or web address] Initial Review Date: 10/24/2019 Generated: 10/25/19 9:45 am Comments DCP- Discharge Planning Updated by [email or web address]: Haleigh Dueñas on 10/24/19 2:[address] Patient Name: MEHUL STRINGER Admission Status: ER Accout number: [id number] Admission Date: 10-22-2019 : 1950 Admission Diagnosis: Attending: KAYE PARKER Current LOS: 2 Anticipated DC Date: Planned Disposition: Home Primary Insurance: MEDICARE A & B Discharge Planning Comments: CM met with patient to complete initial dc planning assessment. CM educated patient on the CM role and verbal consent given by patient to complete assessment. Patient lives at home alone. At discharge patient plans to return and feels this is a safe discharge. CM discussed availability of home health, rehab services, and medical equipment. Patient denied known discharge needs at this time. States her son will take her home. No needs identified. CM will continue to follow and will assist as needed with dc plans/needs. Check Cashier: Haleigh Dueñas DCPIA - Discharge Planning Initial Assessment Updated by [email or web address]: Haleigh Dueñas on 10/24/19 3:50 pm * Is the patient Alert and Oriented? Yes * How many steps to enter\exit or inside your home? 0/0 * Pharmacy [facility] in [place] * Preadmission Environment Home Alone * ADLs Independent * Equipment None * List name and contact numbers for known caregivers / representatives who currently or will assist patient after discharge: Rashaad Munoz [facility] - [phone] * Verbal permission to speak to the caregivers and representatives has been obtained from the patient. Yes * Community resources currently utilized None * Additional services required to return to the preadmission environment? No * Can the patient safely return to the preadmission environment? Yes * Has this patient been hospitalized within the prior 30 days at any hospital? Yes Last DP export: 10/24/19 2:57 p Patient Name: MEHUL STRINGER Page 92914 at 0846 All edits/amendments must be made on the electronic document DICTATION DATE: 10/25/19844 INTERNAL AUDIT CONSULTANT: ADALID 10/25/19844 RPT#: [id number] DC DATE:10/24/19 STATUS: DIS IN [facility] [address] [place] [address] END OF REPORT
--- NOTE | 2019-10-26 08:17 | OP ---
PATIENT NAME: MEHUL STRINGER MEDICAL RECORD: [id number] :54 LOCATION:D.M2 D.6 ADMISSION DATE:10/22/19 SURGEON: GOPI TALLEY MD DATE OF OPERATION: 10/24/2019 PROCEDURE: Left heart catheterization, selective coronary angiography, left femoral artery approach.. CATHETERS: A 5-Serbian sheath, 5/4 left and right Odilia, 5/4 pig. The procedure was well tolerated. The patient was returned to [facility]. Sheath was removed. ExoSeal device placed. FINDINGS: Left ventriculography not performed. CORONARY ANATOMY: LEFT MAIN: Left main is free of disease. LAD: Area of previous stenting is widely patent. Area of angioplasty distally shows some some elastic recoil with stenosis of 80%. CIRCUMFLEX: Free of disease. RIGHT CORONARY ARTERY: Previously placed stent is widely patent. Unchanged from previous with the proximal. PLAN: Intervention to LAD momentarily. DESCRIPTION OF PROCEDURE: A 5-Serbian sheath was exchanged for a 6-Serbian sheath. JL4 guiding catheter provided excellent guide catheter support followed by 300 cm Whisper wire was placed across the 80% stenosed area down this portion of vessel. Stent deployed was a 2.5 x 12 mm Macario drug-eluting stent up to 14 atmospheres for 45 seconds. Final angiography shows excellent resolution of 80% stenosis, no significant residual. MAGALI flow was 3 throughout the procedure. Sheath was closed with ExoSeal device. Heparin used in lab. TRANSINT:[id number] Voice Confirmation ID: [id number] DOCUMENT ID: [id number] GOPI TALLEY MD at 0817 CC: [id number] DICTATION DATE: 10/24/19 141 BLADDER TRIMMER: 10/24/19 213 DIS IN 10/24/19 [facility] [address] [id number]
== END 2019-10-24 18:29 | disposition home or self-care (01) | DRG 303 ==
LOC: D.ER 04:18 → D.M2 05:22 → OBSVTIME 05:22 → D.M2 15:29
PROVIDERS: Emergency Medicine; Internal Medicine Interventional Cardiology; ADMIT Internal Medicine Nephrology; ATTEND Internal Medicine Nephrology
DX: I25.119 Atherosclerotic heart disease of native coronary artery with unspecified angina pectoris (principal); S30.1XXA Contusion of abdominal wall, initial encounter; X58.XXXA Exposure to other specified factors, initial encounter; K21.9 Gastro-esophageal reflux disease without esophagitis; E78.5 Hyperlipidemia, unspecified; I10 Essential (primary) hypertension; F41.8 Other specified anxiety disorders; I08.1 Rheumatic disorders of both mitral and tricuspid valves

== ENCOUNTER → 2019-11-24 02:28 | Outpatient (CLI) | payer MEDICARE, BC ==
[2019-10-22 11:10] VITALS: BMI 20.1
[~2019-11-24 02:28] MED LIST changes: +BRILINTA90 MG PO
[2019-11-24 03:14] LABS: ANION GAP 10.8 mmol/L (8-16); CALCIUM 8.9 mg/dL (8.5-10.1); CARBON DIOXIDE 29.3 mmol/L (21.0-32.0); CREATININE - SERUM 0.9 mg/dL (0.6-1.3); POTASSIUM - SERUM 5.1 mmol/L (3.5-5.1)
== END | disposition home or self-care (01) ==
LOC: D.LABREF 02:28
PROVIDERS: ATTEND Internal Medicine Cardiovascular Disease
DX: I25.10 Atherosclerotic heart disease of native coronary artery without angina pectoris (principal); K21.9 Gastro-esophageal reflux disease without esophagitis; I10 Essential (primary) hypertension; E78.5 Hyperlipidemia, unspecified

== ENCOUNTER 2020-01-20 07:10 | Inpatient (IN) | payer MEDICARE, BC ==
[~2020-01-20] VITALS: Ht 167.6 cm; Wt 59.1 kg
--- NOTE | ~2020-01-20 | EC ---
PATIENT:MEHUL STRINGER DATE OF SERVICE: 01/20/20 SEX: F MEDICAL RECORD: [id number] DATE OF : 54 LOCATION:D.M2 D.212 AGE OF PATIENT: 69 ADMISSION DATE: 01/20/20 REFERRING PHYSICIAN: INTERPRETING PHYSICIAN: ARELY LAIRD MD ECHOCARDIOGRAM REPORT ECHO CHARGES 4 ECHO COMPLETE Date: 01/20/20 CLINICAL DIAGNOSIS: CP ECHOCARDIOGRAPHIC MEASUREMENTS (adult normal given) AC root (d.<3.7cm) 0 cm LV Septum d (<1.2 cm> 0 cm Valve Excursion 0 cm LV Septum (systole) 0 cm Left Atria (s.<4.0cm> 0 cm LVPW d(<1.2cm) 0 cm RV (d.<2.3cm) 0 cm LVPW (sytole) 0 cm LV diastole(<5.6CM) 0 cm MV E-F(>70mm/sec) 0 cm LV systole cm LVOT Diameter 0 cm MV exc.(>10mm) 0 cm Est.ejection fraction (50-75%) % DOPPLER: LVIT cm/sec A 0 cm/sec E 0 cm/sec LA 0 cm/sec RVSP 32.2 mmHg LVOT 0 cm/sec AOP1/2T m/s Asc. Ao 0 cm/sec RVOT 0 cm/sec RA 0 cm/sec PA 0 cm/sec AV Gradient Peak 0 mmHg AV Mean 0 mmHg AV Area cm MV Gradient Peak 00 mmHg MV Mean 0 mmHg MV Area cm COMMENTS: [employer] Installer: Noemy MARTEL Manager Biostatistics: Vera Laird TAPE# PACS Pericardial Effusion N DATE OF SERVICE: PROCEDURE: Transthoracic echocardiogram. FINDINGS: The left ventricle has normal structure and function. The aortic valve appears to be normal. The overall mitral valve structure looks normal. There is trace to mild mitral regurgitation. The overall ejection fraction is 55% to 60%. Right ventricular systolic pressures are normal. The right ventricle appears to be normal size, shape, structure, and function. ECHOCARDIOGRAM REPORT [id number] MEHUL STRINGER TRANSINT:[id number] Voice Confirmation ID: [id number] DOCUMENT ID: [id number] ARELY LAIRD MD CC: [id number] DICTATION DATE: 01/21/20 1057 VIDEO GAME PRODUCER: 01/21/20 1528 ADM IN [id number] [place] [address]
[2020-01-20] MEDS ORDERED: PROCARDIA10 MG PO (07:16)
[2020-01-20] MEDS ORDERED: ADALAT CC90 MG PO (07:16)
[2020-01-20 07:39] LABS: BASOPHILS 0.1 % (0-2); EOSINOPHILS 0.7 % (0-7); HEMATOCRIT 35.8 % (36.0-48.0); HEMOGLOBIN 12.3 g/dL (12-16); IMMATURE GRANULOCYTES 0.4 % (0-5); LYMPHOCYTES 24.7 % (15-50); MCH 29.8 pg (26.0-34.0); MCHC 34.4 g/dL (31.0-37.0); MCV 86.7 fL (80.0-100.0); MEAN PLATELET VOLUME 8.7 fL (7.4-10.4); MONOCYTES 16.3 % (2-11); NEUTROPHILS 57.8 % (40-80); PLATELET COUNT 334 10x3/uL (130-400); RBC 4.13 10x6/uL (4.00-5.40); RDW 13.2 % (11.5-14.5); WBC 7.7 10x3/uL (4.8-10.8)
[2020-01-20 08:02] LABS: APTT 30.4 SECONDS (22.8-39.4); INR 0.88 (0.85-1.17); PROTIME 11.9 SECONDS (11.6-15.0)
[2020-01-20 08:27] LABS: CALC OSMOLALITY 262 mosm/kg (275-300); CALCIUM 9.5 mg/dL (8.5-10.1); CARBON DIOXIDE 27.3 mmol/L (21.0-32.0); CHLORIDE - SERUM 96 mmol/L (98-107); CREATININE - SERUM 0.8 mg/dL (0.6-1.3); POTASSIUM - SERUM 3.9 mmol/L (3.5-5.1); SODIUM 131 mmol/L (136-145); UREA NITROGEN 9 mg/dL (7-18); eGFR NON AFRICAN AMERICAN 76 mL/min (90-120)
[2020-01-20 08:32] LABS: GLUCOSE 111 mg/dL (74-106)
[2020-01-20 08:38] LABS: ALBUMIN 3.7 g/dL (3.4-5.0); ALKALINE PHOSPHATASE 103 U/L (30-120); ALT (SGPT) 22 U/L (10-68); BILIRUBIN - TOTAL 0.22 mg/dL (0.2-1.3); CREATINE KINASE 239 UL (21-215); MAGNESIUM - SERUM 2.1 mg/dL (1.8-2.4); PROTEIN - SERUM 7.3 g/dL (6.4-8.2)
[2020-01-20 08:39] LABS: TROPONIN-I < 0.017 ng/mL (0.000-0.060)
[2020-01-20 09:46] VITALS: BP 127/75
--- NOTE | 2020-01-20 12:40 | NUR ---
REPORT CALLED TO SAMANTHA AT THIS TIME.
[2020-01-20 14:52] VITALS: BP 139/57; BMI 21.0
[2020-01-20 14:58] LABS: CKMB 1.7 U/L (0.0-3.6)
[2020-01-20 14:59] LABS: CREATINE KINASE 319 UL (21-215); TROPONIN-I < 0.017 ng/mL (0.000-0.060)
[2020-01-20 16:00] VITALS: BP 148/73
[2020-01-20 20:00] VITALS: BP 162/83
[2020-01-20 20:01] LABS: CKMB 1.1 U/L (0.0-3.6); CREATINE KINASE 259 UL (21-215)
[2020-01-20 20:02] LABS: TROPONIN-I < 0.017 ng/mL (0.000-0.060)
[2020-01-21] VITALS: BP 138/64
[2020-01-21 03:18] LABS: BASOPHILS 0.3 % (0-2); EOSINOPHILS 2.5 % (0-7); HEMATOCRIT 37.2 % (36.0-48.0); HEMOGLOBIN 12.4 g/dL (12-16); IMMATURE GRANULOCYTES 0.3 % (0-5); LYMPHOCYTES 29.9 % (15-50); MCH 29.4 pg (26.0-34.0); MCHC 33.3 g/dL (31.0-37.0); MCV 88.2 fL (80.0-100.0); MEAN PLATELET VOLUME 8.8 fL (7.4-10.4); PLATELET COUNT 324 10x3/uL (130-400); RBC 4.22 10x6/uL (4.00-5.40); RDW 13.6 % (11.5-14.5); WBC 6.7 10x3/uL (4.8-10.8)
[2020-01-21 03:39] LABS: ALBUMIN 3.3 g/dL (3.4-5.0); ALKALINE PHOSPHATASE 88 U/L (30-120); ALT (SGPT) 20 U/L (10-68); BILIRUBIN - TOTAL 0.21 mg/dL (0.2-1.3); CALC OSMOLALITY 263 mosm/kg (275-300); CALCIUM 8.5 mg/dL (8.5-10.1); CARBON DIOXIDE 27.8 mmol/L (21.0-32.0); CHLORIDE - SERUM 98 mmol/L (98-107); CKMB 0.9 U/L (0.0-3.6); CREATINE KINASE 202 UL (21-215); CREATININE - SERUM 0.8 mg/dL (0.6-1.3); GLUCOSE 91 mg/dL (74-106); POTASSIUM - SERUM 4.4 mmol/L (3.5-5.1); PROTEIN - SERUM 6.7 g/dL (6.4-8.2); SODIUM 132 mmol/L (136-145); UREA NITROGEN 11 mg/dL (7-18); eGFR NON AFRICAN AMERICAN 76 mL/min (90-120)
[2020-01-21 03:40] LABS: TROPONIN-I < 0.017 ng/mL (0.000-0.060)
[2020-01-21 04:00] VITALS: BP 124/63
--- NOTE | 2020-01-21 07:20 | NUR ---
RECIEVE REPORT. RESTING IN BED WITH EYES CLOSED. NO SIGNS OF DISTRESS. CONTINUE PLAN OF CARE AND SAFETY PRECAUTIONS.
[2020-01-21 08:00] VITALS: BP 149/69
[2020-01-21 16:00] VITALS: BP 121/61
[2020-01-21 20:00] VITALS: BP 117/62
--- NOTE | 2020-01-21 20:00 | NUR ---
INITIAL ROUNDS AND ASSESSMENT COMPLETED. PT RESTING IN BED. HYPERTALKATIVE. ASKING MANY QUESTIONS REGARDING STRESS TEST SCHEDULED FOR AM. INSTRUCTED ON NPO AND NO CAFFEINE AFTER MIDNIGHT. NONLABORED RESPIRATIONS ON ROOM AIR. SR/PACEMAKER PER TELEMETRY. PIV TO RIGHT WRIST SALINE LOCKED. CALL LIGHT IN REACH. CPOC.
[2020-01-22] VITALS: BP 110/53
[2020-01-22 04:00] VITALS: BP 116/55
[2020-01-22 04:58] LABS: BASOPHILS 0.3 % (0-2); EOSINOPHILS 3.7 % (0-7); HEMATOCRIT 37.2 % (36.0-48.0); HEMOGLOBIN 12.2 g/dL (12-16); IMMATURE GRANULOCYTES 0.3 % (0-5); LYMPHOCYTES 26.5 % (15-50); MCH 29.3 pg (26.0-34.0); MCHC 32.8 g/dL (31.0-37.0); MCV 89.2 fL (80.0-100.0); MEAN PLATELET VOLUME 8.7 fL (7.4-10.4); MONOCYTES 17.2 % (2-11); PLATELET COUNT 330 10x3/uL (130-400); RBC 4.17 10x6/uL (4.00-5.40); RDW 13.5 % (11.5-14.5); WBC 6.3 10x3/uL (4.8-10.8)
--- NOTE | 2020-01-22 05:06 | NUR ---
NO CHANGE FROM INITIAL SHIFT ASSESSMENT. NPO FOR CARDIOLYTE STRESS TEST THIS AM. CPOC.
[2020-01-22 05:24] LABS: ALBUMIN 3.1 g/dL (3.4-5.0); ANION GAP 7.8 mmol/L (8-16); BILIRUBIN - TOTAL 0.31 mg/dL (0.2-1.3); CALCIUM 8.3 mg/dL (8.5-10.1); CARBON DIOXIDE 27.6 mmol/L (21.0-32.0); CREATININE - SERUM 0.9 mg/dL (0.6-1.3); POTASSIUM - SERUM 4.4 mmol/L (3.5-5.1); PROTEIN - SERUM 6.5 g/dL (6.4-8.2)
--- NOTE | 2020-01-22 07:46 | NUR ---
AM ROUNDING DONE WITH PATIENT BEING NPO FOR STRESS TEST TODAY. GLASSES ON. LEFT PACEMAKER SEEN, ON HEART MONITOR SHOWING SR, HR 71. ON EP, K+ IS 4.4. RIGHT WRIST SEEN WTIH SALINE LOCK. CALL LIGHT IN USE.
[2020-01-22 09:00] VITALS: BP 146/69
--- NOTE | 2020-01-22 10:28 | NUR ---
TO RADIOLOGY FOR STRESS TEST.
--- NOTE | 2020-01-22 10:45 | NUR ---
BED LINENS CHANGED
--- NOTE | 2020-01-22 11:30 | NUR ---
BACK FROM STRESS TEST. DIET AND MEDS RESUMED.
[2020-01-22 12:43] VITALS: Ht 167.6 cm; Wt 59.1 kg
[2020-01-22 12:49] VITALS: BP 121/67
[2020-01-22 17:02] VITALS: BP 141/78
[2020-01-22 20:00] VITALS: BP 123/63
[2020-01-23] VITALS: BP 103/57
[2020-01-23 04:00] VITALS: BP 105/51
[2020-01-23 07:13] LABS: ALBUMIN 3.2 g/dL (3.4-5.0); ANION GAP 7.6 mmol/L (8-16); BILIRUBIN - TOTAL 0.18 mg/dL (0.2-1.3); CALCIUM 7.9 mg/dL (8.5-10.1); CARBON DIOXIDE 27.3 mmol/L (21.0-32.0); POTASSIUM - SERUM 3.9 mmol/L (3.5-5.1); PROTEIN - SERUM 6.6 g/dL (6.4-8.2)
[2020-01-23 07:17] LABS: BASOPHILS 0.3 % (0-2); EOSINOPHILS 4.3 % (0-7); HEMATOCRIT 36.8 % (36.0-48.0); HEMOGLOBIN 11.9 g/dL (12-16); IMMATURE GRANULOCYTES 0.3 % (0-5); LYMPHOCYTES 26.9 % (15-50); MCH 28.7 pg (26.0-34.0); MCHC 32.3 g/dL (31.0-37.0); MCV 88.7 fL (80.0-100.0); MONOCYTES 17.4 % (2-11); NEUTROPHILS 50.8 % (40-80); PLATELET COUNT 365 10x3/uL (130-400); RBC 4.15 10x6/uL (4.00-5.40); RDW 13.3 % (11.5-14.5); WBC 5.8 10x3/uL (4.8-10.8)
--- NOTE | 2020-01-23 07:20 | NUR ---
RECIEVE REPORT. ALERT AND ORIENTED X4. SITTING UP IN BED. SINUS ON TELEMETRY. DENIES ANY NEEDS. CONTINUE PLAN OF CARE AND SAFETY PRECAUTIONS.
[2020-01-23 09:36] VITALS: BP 131/68
[2020-01-23] MEDS ORDERED: ISOSORBIDE MONO30 M1 PO (11:08)
--- NOTE | 2020-01-23 14:56 | NUR ---
ALERT AND OREINTED X4. SITTING UP IN BED DISCHARGE INSTRUCTIONS GIVEN VERBALLY AND WRITTEN. DISCHARGE PAPERS SIGNED ON CHART. DC RT FA IV TIP INTACT. ESCORT TO RIDE VIA WHEELCHAIR. REMAINS FREE FROM INJURY.
== END 2020-01-23 15:13 | disposition home or self-care (01) | DRG 303 ==
LOC: D.ER 07:10 → D.M2 08:08 → OBSVTIME 08:08 → D.M2 01-22 16:38
PROVIDERS: Family Medicine; ADMIT Family Medicine; ATTEND Family Medicine
DX: I25.110 Atherosclerotic heart disease of native coronary artery with unstable angina pectoris (principal); E87.1 Hypo-osmolality and hyponatremia; F31.30 Bipolar disorder, current episode depressed, mild or moderate severity, unspecified; I10 Essential (primary) hypertension; E78.5 Hyperlipidemia, unspecified